=== PATIENT | female | born 2000 | race American Indian/Alaskan Native ===

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

== ENCOUNTER 2021-02-05 10:30 | Outpatient (REF) | payer MEDICAID, SELFPAY ==
[2021-02-06 03:00] LABS: CT PCR NOT DETECTED (Not Detect.); NG PCR NOT DETECTED (Not Detect.)
[2021-02-06 09:47] LABS: BV Int Neg Control Negative (Negative); BV Int Pos Control Positive (Positive)
== END 2021-02-05 10:31 | disposition home or self-care (01) ==
LOC: HO.LAB 10:30
PROVIDERS: Visit Provider Advanced Practice Midwife
DX: O26.892 Other specified pregnancy related conditions, second trimester (principal); R10.9 Unspecified abdominal pain; Z3A.24 24 weeks gestation of pregnancy
CPT/HCPCS: 87480; 87491; 87510; 87591; 87660; 99212

== ENCOUNTER 2021-03-16 14:36 | Emergency (ER) | payer MEDICAID, SELFPAY ==
[2021-03-16 15:13] VITALS: BP 117/75; PULSE 106; RESP 16; TEMP 37.2; O2SAT 95; BMI 39.1
[2021-03-16 15:40] LABS: COVID-19 Test Negative (Negative); IDNOW Serial# 08D9AD1C
[2021-03-16 16:10] VITALS: BP 118/62; PULSE 89; RESP 16; TEMP 36.7; O2SAT 100
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
== END 2021-03-16 17:13 | disposition home or self-care (01) ==
PROVIDERS: Emergency Provider Emergency Medicine
DX: O99.511 Diseases of the respiratory system complicating pregnancy, first trimester (principal); J06.9 Acute upper respiratory infection, unspecified; Z3A.01 Less than 8 weeks gestation of pregnancy; Z20.822 Contact with and (suspected) exposure to COVID-19
CPT/HCPCS: 36415; 87635; 99283; 99284

== ENCOUNTER 2021-04-02 08:58 | Outpatient (REF) | payer MEDICAID, SELFPAY ==
[2021-04-02 13:02] LABS: Hematocrit 35.3 % (37-47); Hemoglobin 11.6 g/dl (12.0-16.0); Mean Corpuscular HGB Conc 32.9 g/dl (31.0-35.0); Mean Corpuscular Hemoglobin 30.7 pg (27.0-33.0); Mean Corpuscular Volume 93.4 fL (80-98); Mean Platelet Volume 11.1 fL (9.4-12.3); Platelet Count 181 X10*3/uL (160-400); Red Blood Count 3.78 X10*6/uL (4.20-5.50); Red Cell Distribution Width 12.6 % (11.0-16.0); White Blood Count 6.2 X10*3/uL (4.8-10.8)
[2021-04-02 13:10] LABS: Amphetamine Screen Urine Not Detected (Not Detect); Barbiturates, Urine Not Detected (Not Detect); Benzodiazepines Screen Urine Not Detected (Not Detect); Cannabinoid Screen Urine POSITIVE (Not Detect); Cocaine Screen Urine Not Detected (Not Detect); Fentanyl, urine Not Detected (Not Detect); Opiate Screen Urine Not Detected (Not Detect); Phencyclidine Screen Urine Not Detected (Not Detect)
[2021-04-02 13:24] LABS: Glucose 1 Hour PP 50gm Dose 75 mg/dL (60-140)
[2021-04-02 15:16] LABS: CT PCR NOT DETECTED (Not Detect.); NG PCR NOT DETECTED (Not Detect.)
[2021-04-03 04:30] LABS: HBsAGNum1 0.19 S/CO (0.00-0.99); HIV AB/AG Nonreactive (Nonreactive); HIV Num 1 0.06 S/CO (0.00-0.99); Hepatitis B Surface Antigen Negative (Negative); ~HepC Num1 0.12 S/CO (0.00-0.79); ~Hepatitis C Antibody Nonreactive (Nonreactive)
[2021-04-03 04:31] LABS: Syphilis Screen Nonreactive (Nonreactive)
[2021-04-03 08:42] LABS: BV Int Neg Control Negative (Negative); BV Int Pos Control Positive (Positive)
[2021-04-04 05:21] LABS: Rubella IgG Antibody 1.21 Index
[2021-04-13 17:30] LABS: CF Ethnicity NG; Cystic Fibrosis NEGATIVE (NEGATIVE)
== END 2021-04-02 08:59 | disposition home or self-care (01) ==
LOC: HO.LAB 08:58
PROVIDERS: Visit Provider Obstetrics & Gynecology
DX: Z34.93 Encounter for supervision of normal pregnancy, unspecified, third trimester (principal); Z3A.32 32 weeks gestation of pregnancy
CPT/HCPCS: 59025; 80307; 81220; 85027; 86762; 86780; 86787; 86803; 86850; 86900; 86901; 87086; 87340; 87389; 87480; 87491; 87510; 87591; 87660; 99212

== ENCOUNTER 2021-04-03 13:22 | Outpatient (REF) | payer MEDICAID, SELFPAY ==
--- NOTE | ~2021-04-03 | US_ITS ---
EXAMINATION: US OBSTETRICAL CLINICAL INFORMATION: A 21-year-old at 32.3 weeks of gestation Insufficient care Alcohol and marijuana use during Insufficient weight gain COMPARISON: 11/07/2020 TECHNIQUE: Real-time transabdominal ultrasound was performed using C1-5 megahertz transducer. FINDINGS: A single, active, fetus is seen in vertex presentation. The placenta is posterior without previa, and the amniotic fluid volume is wnl. MEASUREMENTS: 1. Biparietal Diameter: 8.1 cm; 32.4 wks 2. Occipital Frontal Diameter: 10.4 cm 3. Head Circumference: 29.5 cm; 32.5 wks 4. Abdominal Circumference: 25.8 cm; 30.0 wks 5. Femur Length: 6.2 cm; 32.0 wks 6. Humerus Length: 5.4 cm; 31.2 wks 7. Tibia Length: 5.3 cm; 31.3 wks 8. Ulna Length: 5.1 cm; 32.1 wks 9. Lateral ventricle: 0.3 cm 10. Cerebellum: 4.1 cm; N/A 11. Cisterna Magna: 0.62 cm 12. Nuchal Fold N/A 13. Heart Rate: 133 beats per minute Rt ovary: normal Lt ovary: Unable to visualize Cervical length not visualized GESTATIONAL AGE: 1. Established GA: 32.3 wks 2. GA from [facility]: 31.6 wks ESTIMATED DATE OF DELIVERY: 1. Established MIRANDA: 05/26/2021 2. MIRANDA from [facility]: 05/30/2021 EFW 16 91 g, 3 lbs. 12 oz.: 9% BPP score 02/15 UA Doppler: SD 3.3 ANATOMY: The visualized anatomy includes but not limited to: 1. Cranium: Normal 2. Intracranial anatomy: cavum septum pellucidi, lateral ventricles, choroid plexus, cerebellum, posterior fossa, third and fourth ventricles. 3. face: orbits, lip/palate, profile, nasal bone 4. Heart: four-chamber view of the heart, ventricular septum, foramen ovale, pulmonary vein, left and right outflow tracts, three-vessel view, 3 vessel trachea view, aortic and ductal arches, situs.. 5. Diaphragm: Normal 6. Abdominal wall: Normal 7. Cord Insertion: Normal 8. Spine: Cervical, thoracic, lumbar, sacral. 9. Stomach: Normal size and shape 10. Right Kidney: Normal 11. Left Kidney: Normal 12. 3 vessel cord: Normal 13. Upper extremity: Open hands, fifth digit. 14. Lower extremity: Tibia, fibula, bilateral feet. 15. Bladder: Normal 16. Genitalia: Female patient aware US/US OB /maternal detail IMPRESSION: 1. A single active fetus is in vertex presentation. 2. Size less than dates, EFW corresponds to 9th percentile 3. Normal survey 4. Reassuring biophysical profile with normal amniotic fluid volume 5. Normal SD ratio in the umbilical artery DISCUSSION: I reviewed today's ultrasound findings. We discussed the limitations of ultrasound in diagnosing aneuploidy and other congenital abnormalities. I reviewed the differences between screening test and diagnostic test. She had the low risk N IPT. She is aware of the the risk of the alcohol syndrome. Often there may not be any sonographic findings suggestive of alcohol syndrome. She has discontinued the both the alcohol and marijuana use. She is complaining of poor weight gain and decreased appetite. Recommended the calorie supplements. I also reviewed the limitations of ultrasound and estimating weights. The EFW corresponds to 9th percentile for this age. However the testing is reassuring. She was informed that the baseline incidence of congenital abnormalities is approximately 3-5%. Not all these conditions are diagnosable in utero. RECOMMENDATIONS: 1. A follow-up in 2 weeks is been scheduled. Thank you for allowing me to participate in her care. Total time 30 minutes. The time spent was devoted to counseling the patient about the disease and diagnosis, coordinating care including reviewing her records, pertinent lab data and studies, as well as discussing diagnostic evaluation and workup, plan therapeutic interventions and future disposition of care. This includes any additional research needed to obtain further information in formulating the plan of care of this patient. This note was generated with a voice recognition program. Please excuse any errors which may have been overlooked during my review of this note. Sometimes these errors may affect the content or meaning of a given sentence.
== END 2021-04-03 13:23 | disposition home or self-care (01) ==
LOC: HO.US 13:22
PROVIDERS: Visit Provider Advanced Practice Midwife
DX: Z36.3 Encounter for antenatal screening for malformations (principal); Z32.01 Encounter for pregnancy test, result positive
CPT/HCPCS: 76811

== ENCOUNTER 2021-04-07 15:33 | Outpatient (REF) | payer MEDICAID, SELFPAY ==
[2021-04-08 17:31] LABS: Herpes Simplex Type 2 IgG <0.90 index; Toxoplasma IgG Antibody <7.20 IU/mL; Toxoplasma IgM Antibody <8.00 AU/mL
[2021-04-10 16:37] LABS: CMV DNA PCR Qn Source Whole Blood; CMV DNA Qn PCR Not Detected log IU/mL; CMV DNA Qn Real Time PCR Not Detected
[2021-04-11 11:06] LABS: HSV 1 IgM IFA Negative (Negative); HSV 2 IgM IFA Negative (Negative)
== END 2021-04-07 15:34 | disposition home or self-care (01) ==
LOC: HO.LAB 15:33
PROVIDERS: Visit Provider Obstetrics & Gynecology
DX: O26.843 Uterine size-date discrepancy, third trimester (principal); O36.5930 Maternal care for other known or suspected poor fetal growth, third trimester, not applicable or unspecified; Z3A.33 33 weeks gestation of pregnancy
CPT/HCPCS: 36415; 59025; 86695; 86696; 86777; 86778; 87497; 99212

== ENCOUNTER 2021-04-10 10:42 | Outpatient (REF) | payer MEDICAID, SELFPAY ==
--- NOTE | ~2021-04-10 | US_ITS ---
EXAMINATION: US OBSTETRICAL (BIOPHYSICAL PROFILE) CLINICAL INFORMATION: A 21-year-old at 33.3 weeks of gestation IUGR COMPARISON: 04/03/2021 TECHNIQUE: Biophysical profile is performed over 30 minutes with assessment of breathing, gross body movement, tone, and qualitative amniotic fluid volume. FINDINGS: POSITION: Cephalic PLACENTA: Posterior without previa AMNIOTIC FLUID INDEX: 14.6 cm CARDIAC ACTIVITY: 149 beats per minute BIOPHYSICAL PROFILE: Motion: 2 Tone: 2 Breathin Amniotic Fluid: 2 The total biophysical score is 8/8 UA Doppler showed SD ratio of 2.9 which is within normal limits. US/US OB velocimetry umbilical ar IMPRESSION: 1. Single intrauterine gestation in vertex position. 2. Reassuring BPP and NEHEMIAS 3. Normal SD ratio in the umbilical artery She is scheduled to follow-up in one week for a repeat the interval growth evaluation and surveillance. Thank you for allowing me to participate in her care. This note was generated with a voice recognition program. Please excuse any errors which may have been overlooked during my review of this note. Sometimes these errors may affect the content or meaning of a given sentence.
--- NOTE | ~2021-04-10 | US_ITS ---
EXAMINATION: US OBSTETRICAL (BIOPHYSICAL PROFILE) CLINICAL INFORMATION: A 21-year-old at 33.3 weeks of gestation IUGR COMPARISON: 04/03/2021 TECHNIQUE: Biophysical profile is performed over 30 minutes with assessment of breathing, gross body movement, tone, and qualitative amniotic fluid volume. FINDINGS: POSITION: Cephalic PLACENTA: Posterior without previa AMNIOTIC FLUID INDEX: 14.6 cm CARDIAC ACTIVITY: 149 beats per minute BIOPHYSICAL PROFILE: Motion: 2 Tone: 2 Breathin Amniotic Fluid: 2 The total biophysical score is 8/8 UA Doppler showed SD ratio of 2.9 which is within normal limits. US/US OB biophysical profile IMPRESSION: 1. Single intrauterine gestation in vertex position. 2. Reassuring BPP and NEHEMIAS 3. Normal SD ratio in the umbilical artery She is scheduled to follow-up in one week for a repeat the interval growth evaluation and surveillance. Thank you for allowing me to participate in her care. This note was generated with a voice recognition program. Please excuse any errors which may have been overlooked during my review of this note. Sometimes these errors may affect the content or meaning of a given sentence.
== END 2021-04-10 10:43 | disposition home or self-care (01) ==
LOC: HO.US 10:42
PROVIDERS: PCP Internal Medicine; Visit Provider Obstetrics & Gynecology
DX: O36.5930 Maternal care for other known or suspected poor fetal growth, third trimester, not applicable or unspecified (principal); Z3A.33 33 weeks gestation of pregnancy
CPT/HCPCS: 76819; 76820

== ENCOUNTER → 2021-04-14 11:18 | Outpatient (BNVA) | payer MEDICAID, SELFPAY | PROVIDERS: Visit Provider Obstetrics & Gynecology | DX: O36.8330 Maternal care for abnormalities of the fetal heart rate or rhythm, third trimester, not applicable or unspecified (principal); O98.513 Other viral diseases complicating pregnancy, third trimester; B00.9 Herpesviral infection, unspecified; O26.893 Other specified pregnancy related conditions, third trimester; F12.20 Cannabis dependence, uncomplicated; F10.20 Alcohol dependence, uncomplicated; Z3A.34 34 weeks gestation of pregnancy; Z88.1 Allergy status to other antibiotic agents; Z88.0 Allergy status to penicillin | CPT/HCPCS: 59025; 99212 ==

== ENCOUNTER → 2021-04-21 10:13 | Outpatient (BNVA) | payer MEDICAID, SELFPAY | PROVIDERS: Visit Provider Obstetrics & Gynecology | DX: O36.5930 Maternal care for other known or suspected poor fetal growth, third trimester, not applicable or unspecified (principal); Z3A.35 35 weeks gestation of pregnancy | CPT/HCPCS: 59025; 76819; 76820; 80307; 99212 ==

== ENCOUNTER 2021-04-21 11:33 | Outpatient (REF) | payer MEDICAID, SELFPAY ==
--- NOTE | ~2021-04-21 | US_ITS ---
EXAMINATION: US OBSTETRICAL (BIOPHYSICAL PROFILE) CLINICAL INFORMATION: IUGR COMPARISON: Previous OB ultrasounds most recent 04/10/2021 TECHNIQUE: Ultrasound of the pelvis is performed. Biophysical profile is performed over 30 minutes with assessment of breathing, gross body movement, tone, and qualitative amniotic fluid volume. Each matrix is scored 0 or 2, depending if the metric is present. Maximum total score possible is 8. Examination is not intended to assess for anomalies. FINDINGS: POSITION: Cephalic PLACENTA: Posterior fundal. Grade 2 AMNIOTIC FLUID INDEX: Not performed. A greater than 2 x 2 cm fluid pocket is seen. CARDIAC ACTIVITY: 133 beats per minute BIOPHYSICAL PROFILE: Motion: 2 Tone: 2 Breathin Amniotic Fluid: 2 Total score: 8 Umbilical artery systolic to diastolic ratio 2.6. At 30 weeks, 50th percentile is 2.83 and 40 weeks 50th percentile is 2.18. This is decreased from 2.9 cm on previous exam 04/10/2021. US/US OB velocimetry umbilical ar IMPRESSION: 1. Single intrauterine gestation in cephalic position with posterior fundal placenta. 2. Total biophysical score is 8 (scale 0-8). 3. Amniotic fluid: Not performed. A greater than 2 x 2 cm fluid pocket is seen 4. cardiac activity 133 beats per minute. 5. Umbilical artery systolic to diastolic ratio is 2.6 decreased from 2.9 on 04/10/2021 exam.
--- NOTE | ~2021-04-21 | US_ITS ---
EXAMINATION: US OBSTETRICAL (BIOPHYSICAL PROFILE) CLINICAL INFORMATION: IUGR COMPARISON: Previous OB ultrasounds most recent 04/10/2021 TECHNIQUE: Ultrasound of the pelvis is performed. Biophysical profile is performed over 30 minutes with assessment of breathing, gross body movement, tone, and qualitative amniotic fluid volume. Each matrix is scored 0 or 2, depending if the metric is present. Maximum total score possible is 8. Examination is not intended to assess for anomalies. FINDINGS: POSITION: Cephalic PLACENTA: Posterior fundal. Grade 2 AMNIOTIC FLUID INDEX: Not performed. A greater than 2 x 2 cm fluid pocket is seen. CARDIAC ACTIVITY: 133 beats per minute BIOPHYSICAL PROFILE: Motion: 2 Tone: 2 Breathin Amniotic Fluid: 2 Total score: 8 Umbilical artery systolic to diastolic ratio 2.6. At 30 weeks, 50th percentile is 2.83 and 40 weeks 50th percentile is 2.18. This is decreased from 2.9 cm on previous exam 04/10/2021. US/US OB biophysical profile IMPRESSION: 1. Single intrauterine gestation in cephalic position with posterior fundal placenta. 2. Total biophysical score is 8 (scale 0-8). 3. Amniotic fluid: Not performed. A greater than 2 x 2 cm fluid pocket is seen 4. cardiac activity 133 beats per minute. 5. Umbilical artery systolic to diastolic ratio is 2.6 decreased from 2.9 on 04/10/2021 exam.
[2021-04-21 14:37] LABS: Amphetamine Screen Urine Not Detected (Not Detect); Barbiturates, Urine Not Detected (Not Detect); Benzodiazepines Screen Urine Not Detected (Not Detect); Cannabinoid Screen Urine POSITIVE (Not Detect); Cocaine Screen Urine Not Detected (Not Detect); Fentanyl, urine Not Detected (Not Detect); Opiate Screen Urine Not Detected (Not Detect); Phencyclidine Screen Urine Not Detected (Not Detect)
== END 2021-04-21 11:34 | disposition home or self-care (01) ==
LOC: HO.US 11:33
PROVIDERS: Visit Provider Obstetrics & Gynecology
DX: O36.5990 Maternal care for other known or suspected poor fetal growth, unspecified trimester, not applicable or unspecified (principal)
CPT/HCPCS: 76819; 76820; 80307

== ENCOUNTER 2021-04-24 11:49 | Outpatient (REF) | payer MEDICAID, SELFPAY ==
--- NOTE | ~2021-04-24 | US_ITS ---
EXAMINATION: OBSTETRICAL ULTRASOUND, Follow up HISTORY: A 21-year-old at the 35.3 weeks of gestation Insufficient care Small for gestational age COMPARISON: 04/21/2021 TECHNIQUE: Real time transabdominal imaging with color and M-mode Doppler. PRESENTATION: Vertex PLACENTA LOCATION: Posterior fundal without previa AMNIOTIC FLUID: NEHEMIAS 13.3 MEASUREMENTS: 1. Biparietal Diameter: 8.5 cm; 34.3 wks 2. Head Circumference: 31.3 cm; 35.1 wks 3. Abdominal Circumference: 30.4 cm; 34.3 wks 4. Femur Length: 6.5 cm; 33.5 wks 5. Heart Rate: 147 beats per minute WEIGHT: EFW: 2383 grams (5 lbs 4 oz) -- 18 %. BIOPHYSICAL PROFILE: Motion: 2 Tone: 2 Breathin Amniotic Fluid: 2 Total score: 8/8 UA Doppler: SD 2.8 GESTATIONAL AGE: 1. Established GA: 35.3 wks 2. GA from A: 34.3 wks ESTIMATED DATE OF DELIVERY: 1. Established MIRANDA: 05/26/2021 2. MIRANDA from AUA: 06/02/2021 US/US OB velocimetry umbilical ar IMPRESSION: 1. A single active fetus is in vertex presentation 2. Size equals dates. Compared to prior exam, there has been an appropriate interval growth. EFW corresponds to 18th percentile. 3. Reassuring testing and normal UA Doppler I reassured the patient that the interval growth is appropriate and testing is reassuring. She delivered a child was weight was approximately 5 1/2 pounds post dates. No further ultrasound exam has been scheduled. Thank you very much for this referral. Total time 20 minutes. The time spent was devoted to counseling the patient about the disease and diagnosis, coordinating care including reviewing her records, pertinent lab data and studies, as well as discussing diagnostic evaluation and workup, plan therapeutic interventions and future disposition of care. This includes any additional research needed to obtain further information in formulating the plan of care of this patient. This note was generated with a voice recognition program. Please excuse any errors which may have been overlooked during my review of this note. Sometimes these errors may affect the content or meaning of a given sentence.
--- NOTE | ~2021-04-24 | US_ITS ---
EXAMINATION: OBSTETRICAL ULTRASOUND, Follow up HISTORY: A 21-year-old at the 35.3 weeks of gestation Insufficient care Small for gestational age COMPARISON: 04/21/2021 TECHNIQUE: Real time transabdominal imaging with color and M-mode Doppler. PRESENTATION: Vertex PLACENTA LOCATION: Posterior fundal without previa AMNIOTIC FLUID: NEHEMIAS 13.3 MEASUREMENTS: 1. Biparietal Diameter: 8.5 cm; 34.3 wks 2. Head Circumference: 31.3 cm; 35.1 wks 3. Abdominal Circumference: 30.4 cm; 34.3 wks 4. Femur Length: 6.5 cm; 33.5 wks 5. Heart Rate: 147 beats per minute WEIGHT: EFW: 2383 grams (5 lbs 4 oz) -- 18 %. BIOPHYSICAL PROFILE: Motion: 2 Tone: 2 Breathin Amniotic Fluid: 2 Total score: 8/8 UA Doppler: SD 2.8 GESTATIONAL AGE: 1. Established GA: 35.3 wks 2. GA from AUA: 34.3 wks ESTIMATED DATE OF DELIVERY: 1. Established MIRANDA: 05/26/2021 2. MIRANDA from AUA: 06/02/2021 US/US OB follow up IMPRESSION: 1. A single active fetus is in vertex presentation 2. Size equals dates. Compared to prior exam, there has been an appropriate interval growth. EFW corresponds to 18th percentile. 3. Reassuring testing and normal UA Doppler I reassured the patient that the interval growth is appropriate and testing is reassuring. She delivered a child was weight was approximately 5 1/2 pounds post dates. No further ultrasound exam has been scheduled. Thank you very much for this referral. Total time 20 minutes. The time spent was devoted to counseling the patient about the disease and diagnosis, coordinating care including reviewing her records, pertinent lab data and studies, as well as discussing diagnostic evaluation and workup, plan therapeutic interventions and future disposition of care. This includes any additional research needed to obtain further information in formulating the plan of care of this patient. This note was generated with a voice recognition program. Please excuse any errors which may have been overlooked during my review of this note. Sometimes these errors may affect the content or meaning of a given sentence.
== END 2021-04-24 11:50 | disposition home or self-care (01) ==
LOC: HO.US 11:49
PROVIDERS: Visit Provider Obstetrics & Gynecology
DX: O36.5990 Maternal care for other known or suspected poor fetal growth, unspecified trimester, not applicable or unspecified (principal)
CPT/HCPCS: 76816; 76820

== ENCOUNTER 2021-04-28 10:34 | Outpatient (REF) | payer MEDICAID, SELFPAY ==
[2021-04-29 09:05] LABS: BV Int Neg Control Negative (Negative); BV Int Pos Control Positive (Positive)
[2021-04-29 11:14] LABS: CT PCR NOT DETECTED (Not Detect.); NG PCR NOT DETECTED (Not Detect.)
== END 2021-04-28 10:35 | disposition home or self-care (01) ==
LOC: HO.LAB 10:34
PROVIDERS: Visit Provider Obstetrics & Gynecology
DX: Z34.93 Encounter for supervision of normal pregnancy, unspecified, third trimester (principal); Z3A.36 36 weeks gestation of pregnancy
CPT/HCPCS: 59025; 87081; 87147; 87186; 87480; 87491; 87510; 87591; 87660; 99212

== ENCOUNTER 2021-05-01 14:36 | Outpatient (REF) | payer MEDICAID, SELFPAY ==
--- NOTE | ~2021-05-01 | US_ITS ---
EXAMINATION: US OBSTETRICAL (BIOPHYSICAL PROFILE) CLINICAL INFORMATION: A 21-year-old at 36.3 weeks of gestation growth restriction COMPARISON: 04/10/2021 TECHNIQUE: Biophysical profile is performed over 30 minutes with assessment of breathing, gross body movement, tone, and qualitative amniotic fluid volume. FINDINGS: POSITION: Cephalic PLACENTA: Posterior, fundal AMNIOTIC FLUID INDEX: 14.7 cm CARDIAC ACTIVITY: 153 beats per minute BIOPHYSICAL PROFILE: Motion: 2 Tone: 2 Breathin Amniotic Fluid: 2 The total biophysical score is 8/8 UA Doppler: SD 3.2 US/US OB velocimetry umbilical ar IMPRESSION: 1. Single intrauterine gestation in vertex position. 2. Reassuring BPP and NEHEMIAS The patient is being monitored for FGR based on the AC less than 10th percentile on 04/24/2021. The testing is reassuring. A repeat biometry will be done next week. Thank you for allowing me to participate in her care. This note was generated with a voice recognition program. Please excuse any errors which may have been overlooked during my review of this note. Sometimes these errors may affect the content or meaning of a given sentence.
--- NOTE | ~2021-05-01 | US_ITS ---
EXAMINATION: US OBSTETRICAL (BIOPHYSICAL PROFILE) CLINICAL INFORMATION: A 21-year-old at 36.3 weeks of gestation growth restriction COMPARISON: 04/10/2021 TECHNIQUE: Biophysical profile is performed over 30 minutes with assessment of breathing, gross body movement, tone, and qualitative amniotic fluid volume. FINDINGS: POSITION: Cephalic PLACENTA: Posterior, fundal AMNIOTIC FLUID INDEX: 14.7 cm CARDIAC ACTIVITY: 153 beats per minute BIOPHYSICAL PROFILE: Motion: 2 Tone: 2 Breathin Amniotic Fluid: 2 The total biophysical score is 8/8 UA Doppler: SD 3.2 US/US OB biophysical profile IMPRESSION: 1. Single intrauterine gestation in vertex position. 2. Reassuring BPP and NEHEMIAS The patient is being monitored for FGR based on the AC less than 10th percentile on 04/24/2021. The testing is reassuring. A repeat biometry will be done next week. Thank you for allowing me to participate in her care. This note was generated with a voice recognition program. Please excuse any errors which may have been overlooked during my review of this note. Sometimes these errors may affect the content or meaning of a given sentence.
== END 2021-05-01 14:37 | disposition home or self-care (01) ==
LOC: HO.US 14:36
PROVIDERS: Visit Provider Obstetrics & Gynecology
DX: O36.5930 Maternal care for other known or suspected poor fetal growth, third trimester, not applicable or unspecified (principal); Z3A.36 36 weeks gestation of pregnancy
CPT/HCPCS: 76819; 76820

== ENCOUNTER → 2021-05-05 14:32 | Outpatient (BNVA) | payer MEDICAID, SELFPAY | PROVIDERS: Visit Provider Obstetrics & Gynecology | DX: O26.893 Other specified pregnancy related conditions, third trimester (principal); F12.90 Cannabis use, unspecified, uncomplicated; F10.10 Alcohol abuse, uncomplicated; O99.820 Streptococcus B carrier state complicating pregnancy; O09.33 Supervision of pregnancy with insufficient antenatal care, third trimester; O36.5930 Maternal care for other known or suspected poor fetal growth, third trimester, not applicable or unspecified; Z3A.37 37 weeks gestation of pregnancy; Z72.89 Other problems related to lifestyle; Z71.51 Drug abuse counseling and surveillance of drug abuser; Z79.899 Other long term (current) drug therapy | CPT/HCPCS: 59025; 99212 ==

== ENCOUNTER 2021-05-08 11:16 | Outpatient (REF) | payer MEDICAID, SELFPAY ==
--- NOTE | ~2021-05-08 | US_ITS ---
EXAMINATION: US OBSTETRICAL (BIOPHYSICAL PROFILE) CLINICAL INFORMATION: A 21-year-old at 37.3 weeks of gestation Size less than dates COMPARISON: 05/01/2021 TECHNIQUE: Biophysical profile is performed over 30 minutes with assessment of breathing, gross body movement, tone, and qualitative amniotic fluid volume. FINDINGS: POSITION: Cephalic PLACENTA: Fundal AMNIOTIC FLUID INDEX: 11.1 cm CARDIAC ACTIVITY: 143 beats per minute BIOPHYSICAL PROFILE: Motion: 2 Tone: 2 Breathin Amniotic Fluid: 2 The total biophysical score is 8/8 UA Doppler: SD 2.9 US/US OB biophysical profile IMPRESSION: 1. Single intrauterine gestation in vertex position. 2. Reassuring BPP and NEHEMIAS 3. Normal SD ratio in the umbilical artery. I gave her reassurance based on today's findings. The BPP score and amniotic fluid volume are within normal limits. The SD ratio and umbilical artery was stable and within normal limits. Agree with plan for expectant management until at approximately 39 weeks of gestation. She is scheduled for repeat biometry next week. Thank you for allowing me to participate in her care. Total time 30 minutes. The time spent was devoted to counseling the patient about the disease and diagnosis, coordinating care including reviewing her records, pertinent lab data and studies, as well as discussing diagnostic evaluation and workup, plan therapeutic interventions and future disposition of care. This includes any additional research needed to obtain further information in formulating the plan of care of this patient. This note was generated with a voice recognition program. Please excuse any errors which may have been overlooked during my review of this note. Sometimes these errors may affect the content or meaning of a given sentence.
--- NOTE | ~2021-05-08 | US_ITS ---
EXAMINATION: US OBSTETRICAL (BIOPHYSICAL PROFILE) CLINICAL INFORMATION: A 21-year-old at 37.3 weeks of gestation Size less than dates COMPARISON: 05/01/2021 TECHNIQUE: Biophysical profile is performed over 30 minutes with assessment of breathing, gross body movement, tone, and qualitative amniotic fluid volume. FINDINGS: POSITION: Cephalic PLACENTA: Fundal AMNIOTIC FLUID INDEX: 11.1 cm CARDIAC ACTIVITY: 143 beats per minute BIOPHYSICAL PROFILE: Motion: 2 Tone: 2 Breathin Amniotic Fluid: 2 The total biophysical score is 8/8 UA Doppler: SD 2.9 US/US OB velocimetry umbilical ar IMPRESSION: 1. Single intrauterine gestation in vertex position. 2. Reassuring BPP and NEHEMIAS 3. Normal SD ratio in the umbilical artery. I gave her reassurance based on today's findings. The BPP score and amniotic fluid volume are within normal limits. The SD ratio and umbilical artery was stable and within normal limits. Agree with plan for expectant management until at approximately 39 weeks of gestation. She is scheduled for repeat biometry next week. Thank you for allowing me to participate in her care. Total time 30 minutes. The time spent was devoted to counseling the patient about the disease and diagnosis, coordinating care including reviewing her records, pertinent lab data and studies, as well as discussing diagnostic evaluation and workup, plan therapeutic interventions and future disposition of care. This includes any additional research needed to obtain further information in formulating the plan of care of this patient. This note was generated with a voice recognition program. Please excuse any errors which may have been overlooked during my review of this note. Sometimes these errors may affect the content or meaning of a given sentence.
== END 2021-05-08 11:17 | disposition home or self-care (01) ==
LOC: HO.US 11:16
PROVIDERS: Visit Provider Obstetrics & Gynecology
DX: O36.5990 Maternal care for other known or suspected poor fetal growth, unspecified trimester, not applicable or unspecified (principal)
CPT/HCPCS: 76819; 76820

== ENCOUNTER → 2021-05-26 09:15 | Outpatient (BNVA) | payer MEDICAID, SELFPAY | PROVIDERS: Visit Provider Obstetrics & Gynecology | DX: O36.5930 Maternal care for other known or suspected poor fetal growth, third trimester, not applicable or unspecified (principal); Z3A.40 40 weeks gestation of pregnancy | CPT/HCPCS: 99212 ==

== ENCOUNTER 2021-07-03 22:18 | Emergency (ER) | payer MEDICAID, SELFPAY ==
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
[2021-07-04 01:11] VITALS: BP 148/57; PULSE 64; RESP 16; TEMP 36.8; O2SAT 98; BMI 36.3
[2021-07-04 01:33] LABS: COVID-19 Test Negative (Negative); IDNOW Serial# 9DD0AD1C
== END 2021-07-04 02:23 | disposition home or self-care (01) ==
PROVIDERS: Emergency Provider Internal Medicine
DX: U07.1 COVID-19 (principal)
CPT/HCPCS: 36415; 87635; 99283

== ENCOUNTER 2021-11-24 07:10 | Emergency (ER) | payer MEDICAID, SELFPAY ==
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
[2021-11-24 08:33] VITALS: BP 122/60; PULSE 98; RESP 16; TEMP 37.2; O2SAT 98; BMI 45.5
[2021-11-24] MEDS: Acetaminophen 325 MG TABLET 650 MG PO (08:51)
[2021-11-24 08:55] LABS: COVID-19 Test Positive (Negative); IDNOW Serial# 16C4AD1C
== END 2021-11-24 09:10 | disposition home or self-care (01) ==
PROVIDERS: Physician Assistant; Emergency Provider Emergency Medicine
DX: U07.1 COVID-19 (principal); Z79.899 Other long term (current) drug therapy
CPT/HCPCS: 87635; 99283

== ENCOUNTER 2021-11-27 06:23 | Emergency (ER) | payer MEDICAID, SELFPAY ==
[2021-11-27 06:31] VITALS: BP 119/65; PULSE 81; RESP 15; TEMP 36.9; O2SAT 100; BMI 39.6
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
[2021-11-27] MEDS: diphenhydrAMINE HCL 50 MG/ML VIAL IM (08:36)
[2021-11-27] MEDS: methylPREDNISolone Sod Succ 125 MG/2 ML VIAL 120 MG IM (08:36)
== END 2021-11-27 09:36 | disposition home or self-care (01) ==
PROVIDERS: Emergency Provider Emergency Medicine Emergency Medical Services
DX: T78.40XA Allergy, unspecified, initial encounter (principal); X58.XXXA Exposure to other specified factors, initial encounter
CPT/HCPCS: 96372; 99284; J1200; J2930

== ENCOUNTER 2022-07-30 11:06 | Outpatient (REF) | payer MEDICAID, SELFPAY ==
[2022-07-30 17:09] LABS: CT PCR NOT DETECTED (Not Detect.); NG PCR NOT DETECTED (Not Detect.)
[2022-07-31 13:29] LABS: BV Int Neg Control Negative (Negative); BV Int Pos Control Positive (Positive)
== END 2022-07-30 11:07 | disposition home or self-care (01) ==
LOC: HO.LNP 11:06
PROVIDERS: Visit Provider Advanced Practice Midwife
DX: Z01.419 Encounter for gynecological examination (general) (routine) without abnormal findings (principal); N89.8 Other specified noninflammatory disorders of vagina; Z11.3 Encounter for screening for infections with a predominantly sexual mode of transmission; Z80.3 Family history of malignant neoplasm of breast
CPT/HCPCS: 0353U; 87480; 87510; 87660; 88142

== ENCOUNTER 2022-10-31 19:00 | Emergency (ER) | payer MEDICAID, SELFPAY ==
[2022-10-31 19:24] VITALS: BP 106/61; PULSE 84; RESP 18; TEMP 36.6; O2SAT 97; BMI 41.5
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
== END 2022-10-31 20:00 | disposition home or self-care (01) ==
PROVIDERS: Emergency Provider Internal Medicine
DX: H11.32 Conjunctival hemorrhage, left eye (principal); H10.9 Unspecified conjunctivitis; Z79.899 Other long term (current) drug therapy
CPT/HCPCS: 99282

== ENCOUNTER 2022-11-02 12:33 | Emergency (ER) | payer MEDICAID, SELFPAY ==
[2022-11-02 12:53] VITALS: BP 109/74; PULSE 83; RESP 16; TEMP 36.3; O2SAT 97; BMI 19.7
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
== END 2022-11-02 13:24 | disposition home or self-care (01) ==
LOC: HO.ED 13:18
PROVIDERS: Emergency Provider Student in an Organized Health Care Education/Training Program
DX: T60.4X1A Toxic effect of rodenticides, accidental (unintentional), initial encounter (principal); Y92.9 Unspecified place or not applicable
CPT/HCPCS: 99282

== ENCOUNTER → 2023-05-10 14:04 | Outpatient (BNVA) | payer MEDICAID, SELFPAY | PROVIDERS: Visit Provider Physician Assistant ==

== ENCOUNTER 2023-05-12 08:31 | Outpatient (AMB) | payer MEDICAID, SELFPAY ==
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
[2023-05-12 11:59] VITALS: BMI 44.7
== END 2023-05-12 12:24 | disposition home or self-care (01) ==
LOC: HO.HBS 08:31
PROVIDERS: Visit Provider Surgery
DX: E66.01 Morbid (severe) obesity due to excess calories (principal); Z68.41 Body mass index [BMI] 40.0-44.9, adult
CPT/HCPCS: 99204

== ENCOUNTER → 2023-05-12 08:31 | Outpatient (BNVA) | payer MEDICAID, SELFPAY | PROVIDERS: Visit Provider Surgery ==

== ENCOUNTER 2023-06-02 10:36 | Emergency (ER) | payer MEDICAID, SELFPAY ==
[2023-06-02 10:50] VITALS: BP 121/77; PULSE 89; RESP 19; TEMP 36.6; O2SAT 99; BMI 44.3
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
[2023-06-02 11:27] LABS: Appearance Urine Clear; Color Urine Yellow; Glucose Urine UA Negative (Negative); Leukocyte Esterase Urine Negative (Negative); Nitrite Urine Negative (Negative); PH 5.5 (5.0-9.0); Specific Gravity - Urine 1.015 (1.005-1.025); UMIC TRIGGER UACC YES; Urine Blood Large (3+) (Negative); Urine Ketones Negative (Negative); Urine Protein Negative (Neg-Trace)
[2023-06-02 11:29] LABS: UPreg QC Valid YES; Urine Pregnancy NEGATIVE (NEGATIVE)
[2023-06-02 11:31] LABS: Bacteria Urine None Seen (None Seen); Hyaline Casts Urine 0-2 /LPF (0-2); RBC Urine >20 /HPF (0-2); Squamous Epithelial Cell Urine 0-2 /HPF (0-2); WBC Urine 0-5 /HPF (0-5)
[2023-06-02 11:41] LABS: Anion Gap 16 (12-20); Blood Urea Nitrogen 6 mg/dL (9-16); Calcium 8.9 mg/dL (8.4-10.2); Carbon Dioxide 18 mmol/L (22-29); Chloride 110 mmol/L (96-108); Creatinine Clr Calc Pharmacy 148.6; Estimated Glomerular Filt Rate > 60; Glucose Random 80 mg/dL (60-115); Potassium 4.5 mmol/L (3.3-5.1); Sodium 139 mmol/L (135-145)
[2023-06-02 11:50] LABS: HCG Quantitative < 2 mIU/mL
[2023-06-02 12:08] LABS: MANUAL DIFF FLAG NO
[2023-06-02 12:10] LABS: Basophils Absolute Auto 0.1 X10*3/uL (0.0-0.2); Basophils Percent Auto 0.9 % (0-2); Eosinophils Absolute Auto 0.1 X10*3/uL (0.0-0.4); Hematocrit 39.7 % (37.0-47.0); Hemoglobin 13.3 g/dl (12.0-16.0); Imm Gran Abs Auto 0.03 X10*3/uL (0.00-0.03); Imm Gran Pct Auto 0.3 % (0.0-0.4); Lymphocytes Absolute Auto 1.9 X10*3/uL (1.2-4.9); Lymphocytes Percent Auto 18.4 % (20-40); Mean Corpuscular HGB Conc 33.5 g/dl (31.0-35.0); Mean Corpuscular Hemoglobin 30.2 pg (27.0-33.0); Mean Corpuscular Volume 90.2 fL (80.0-98.0); Monocytes Absolute Auto 0.6 X10*3/uL (0.1-1.2); Monocytes Percent Auto 6.3 % (2-11); Neutrophils Absolute Auto 7.4 x10*3/uL (2.0-8.3); Neutrophils Percent Auto 73.1 % (45-73); Platelet Count 248 X10*3/uL (160-400); Red Cell Distribution Width 13.2 % (11.0-16.0); White Blood Count 10.2 X10*3/uL (4.8-10.8)
== END 2023-06-02 12:50 | disposition home or self-care (01) ==
PROVIDERS: Emergency Provider Emergency Medicine
DX: N92.0 Excessive and frequent menstruation with regular cycle (principal); F12.90 Cannabis use, unspecified, uncomplicated; E66.9 Obesity, unspecified; Z68.41 Body mass index [BMI] 40.0-44.9, adult
CPT/HCPCS: 36415; 80048; 81001; 81025; 84702; 85025; 99283

== ENCOUNTER 2023-06-06 08:08 | Outpatient (AMB) | payer MEDICAID, SELFPAY ==
[2023-06-06 08:47] VITALS: BMI 44.1
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
== END 2023-06-06 08:56 | disposition home or self-care (01) ==
LOC: HO.HBS 08:08
PROVIDERS: Visit Provider Surgery
DX: E66.01 Morbid (severe) obesity due to excess calories (principal); Z68.41 Body mass index [BMI] 40.0-44.9, adult
CPT/HCPCS: 99214

== ENCOUNTER → 2023-06-06 08:08 | Outpatient (REF) | payer MEDICAID, SELFPAY ==
--- NOTE | ~2023-06-06 | XR_ITS ---
EXAMINATION: XR CHEST CLINICAL INFORMATION: Morbid obesity COMPARISON: Chest radiograph from 05/19/2007 TECHNIQUE: 2 views of the chest were obtained. FINDINGS: No focal consolidation. No pneumothorax. Trachea is midline. Cardiac mediastinal silhouette is not enlarged. No large pleural effusion. Osseous structures are intact. Soft tissues are unremarkable. Bilateral nipple piercings are noted. XR/XR chest 2V IMPRESSION: No acute cardiopulmonary process.
--- NOTE | 2023-06-06 09:20 | ECG_ITS ---
Test Reason : e66.01 Blood Pressure : / mmHG Vent. Rate : 081 BPM Atrial Rate : 081 BPM P-R Int : 154 ms QRS Dur : 078 ms QT Int : 356 ms P-R-T Axes : 058 065 045 degrees QTc Int : 413 ms Normal sinus rhythm Normal ECG No previous ECGs available Referred By: Moe Richardson Electronically Signed By:STEVEN DOCKERY MD
== END ==
LOC: HO.CARD 08:08
PROVIDERS: Visit Provider Surgery
DX: E66.01 Morbid (severe) obesity due to excess calories (principal)
CPT/HCPCS: 71046; 93005

== ENCOUNTER 2023-06-23 14:28 | Outpatient (AMB) | payer MEDICAID, SELFPAY ==
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
== END 2023-06-23 14:42 | disposition home or self-care (01) ==
LOC: HO.HBS 14:28
PROVIDERS: Visit Provider Dietitian, Registered
DX: E66.01 Morbid (severe) obesity due to excess calories (principal)

== ENCOUNTER → 2023-06-23 14:28 | Outpatient (BNVA) | payer MEDICAID, SELFPAY | PROVIDERS: Visit Provider Dietitian, Registered | DX: E66.01 Morbid (severe) obesity due to excess calories (principal) | CPT/HCPCS: 97802 ==

== ENCOUNTER 2023-06-27 07:57 | Outpatient (AMB) | payer MEDICAID, SELFPAY ==
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
[2023-06-27 09:04] VITALS: BMI 39.9
== END 2023-06-27 09:12 | disposition home or self-care (01) ==
PROVIDERS: Visit Provider Surgery
DX: E66.9 Obesity, unspecified (principal); Z68.39 Body mass index [BMI] 39.0-39.9, adult
CPT/HCPCS: 99214

== ENCOUNTER → 2023-06-27 07:57 | Outpatient (BNVA) | payer MEDICAID, SELFPAY | PROVIDERS: Visit Provider Surgery ==

== ENCOUNTER 2023-10-06 14:20 | Emergency (ER) | payer SELFPAY ==
--- NOTE | ~2023-10-06 | US_ITS ---
EXAMINATION: US OBSTETRICAL ULTRASOUND CLINICAL INFORMATION: Positive test one week ago. Vaginal bleeding. COMPARISON: None available. LMP: Unknown. Gestational age by maternal dates is unknown. Estimated date of delivery by maternal dates is unknown. TECHNIQUE: Routine transabdominal and transvaginal imaging of pelvis is performed. FINDINGS: There is visualization of intrauterine gestational sac and yolk sac. The pole is not visualized. It may be too early in . No heart beat visualized MATERNAL ADNEXA: The right maternal ovary measures 3.2 x 2.1 x 2.6 cm. The left maternal ovary measures 3.0 x 1.8 x 2.2 cm. There is no significant maternal adnexal mass. No maternal pelvic ascites. US/US OB pelvic and transvaginal IMPRESSION: Single intrauterine gestational sac with yolk sac. No pole is visualized at this time. This could be too early in . Recommend follow-up ultrasound in 2-3 weeks or later.
[2023-10-06 14:29] VITALS: BP 143/62; PULSE 84; RESP 18; TEMP 36.6; O2SAT 98; BMI 48.2
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
== END 2023-10-06 17:57 | disposition left against medical advice (07) ==
PROVIDERS: Emergency Provider Emergency Medicine
DX: O26.859 Spotting complicating pregnancy, unspecified trimester (principal); O26.899 Other specified pregnancy related conditions, unspecified trimester; R10.30 Lower abdominal pain, unspecified; Z3A.00 Weeks of gestation of pregnancy not specified; Z88.0 Allergy status to penicillin
CPT/HCPCS: 76801; 76817; 99281; 99284

== ENCOUNTER 2023-10-06 19:37 | Emergency (ER) | payer SELFPAY ==
[2023-10-06 20:15] VITALS: BP 117/54; PULSE 83; RESP 18; TEMP 36.6; O2SAT 98; BMI 48.3
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
[2023-10-06 21:02] LABS: MANUAL DIFF FLAG NO
[2023-10-06 21:03] LABS: Basophils Absolute Auto 0.1 X10*3/uL (0.0-0.2); Eosinophils Absolute Auto 0.2 X10*3/uL (0.0-0.4); Eosinophils Percent Auto 2.6 % (0-4); Hematocrit 38.4 % (37.0-47.0); Hemoglobin 12.7 g/dl (12.0-16.0); Imm Gran Abs Auto 0.02 X10*3/uL (0.00-0.03); Imm Gran Pct Auto 0.3 % (0.0-0.4); Lymphocytes Absolute Auto 1.7 X10*3/uL (1.2-4.9); Lymphocytes Percent Auto 21.6 % (20-40); Mean Corpuscular HGB Conc 33.1 g/dl (31.0-35.0); Mean Corpuscular Hemoglobin 29.7 pg (27.0-33.0); Mean Corpuscular Volume 89.7 fL (80.0-98.0); Mean Platelet Volume 10.8 fL (9.4-12.3); Monocytes Absolute Auto 0.5 X10*3/uL (0.1-1.2); Monocytes Percent Auto 6.8 % (2-11); Neutrophils Absolute Auto 5.4 x10*3/uL (2.0-8.3); Neutrophils Percent Auto 67.7 % (45-73); Platelet Count 205 X10*3/uL (160-400); Red Blood Count 4.28 X10*6/uL (4.20-5.50); Red Cell Distribution Width 13.8 % (11.0-16.0)
[2023-10-06 21:08] LABS: INTERNATIONAL NORM RATIO 0.9 (0.9-1.1); Prothrombin Time 10.5 SEC (11.1-13.3)
[2023-10-06 21:17] LABS: Alanine Aminotransferase 16 U/L (0-31); Albumin Level 3.3 g/dL (3.5-5.0); Alkaline Phosphatase 66 U/L (39-117); Anion Gap 14 (12-20); Aspartate Amino Transferase 18 U/L (5-31); Bilirubin Total 0.1 mg/dL (0.0-1.0); Blood Urea Nitrogen 14 mg/dL (9-16); Calcium 8.8 mg/dL (8.4-10.2); Carbon Dioxide 25 mmol/L (22-29); Chloride 105 mmol/L (96-108); Creatinine Clr Calc Pharmacy 168.2; Estimated Glomerular Filt Rate > 60; Glucose Random 114 mg/dL (60-115); Lipase 34 U/L (8-78); Magnesium 2.1 mg/dL (1.6-2.6); Potassium 4.5 mmol/L (3.3-5.1); Sodium 139 mmol/L (135-145); Total Protein 6.8 g/dL (6.5-8.0)
[2023-10-06 21:24] LABS: HCG Quantitative 11935 mIU/mL
[2023-10-06 23:52] VITALS: BP 105/60; PULSE 82; RESP 18; TEMP 36.2; O2SAT 100
== END 2023-10-07 03:11 | disposition left against medical advice (07) ==
PROVIDERS: Physician Assistant Medical; Emergency Provider Emergency Medicine
DX: O20.9 Hemorrhage in early pregnancy, unspecified (principal); R11.2 Nausea with vomiting, unspecified
CPT/HCPCS: 36415; 80053; 83690; 83735; 84702; 85025; 85610; 99281; 99283

== ENCOUNTER 2024-01-04 12:35 | Emergency (ER) | payer MEDICAID, SELFPAY ==
--- NOTE | 2024-01-04 | ECG_ITS ---
Test Reason : CP Blood Pressure : / mmHG Vent. Rate : 093 BPM Atrial Rate : 093 BPM P-R Int : 158 ms QRS Dur : 076 ms QT Int : 328 ms P-R-T Axes : 047 045 038 degrees QTc Int : 407 ms Normal sinus rhythm Normal ECG When compared with ECG of 06-JUN-2023 09:19, No significant change was found Referred By: Generic ED Physician Electronically Signed By:UZIEL ROSENBAUM MD
--- NOTE | ~2024-01-04 | XR_ITS ---
EXAMINATION: XR CHEST CLINICAL INFORMATION: Left-sided pain COMPARISON: 06/06/2023. TECHNIQUE: 2 views of the chest were obtained. FINDINGS: Lungs clear. No pleural effusions. Heart and pulmonary vessels are normal. XR/XR chest 2V IMPRESSION: No active disease.
[2024-01-04 12:46] VITALS: BP 124/64; PULSE 86; RESP 18; TEMP 36.3; O2SAT 99; BMI 48.0
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
[2024-01-04 13:03] LABS: MANUAL DIFF FLAG NO
[2024-01-04 13:05] LABS: Basophils Absolute Auto 0.1 X10*3/uL (0.0-0.2); Basophils Percent Auto 1.3 % (0-2); Eosinophils Absolute Auto 0.2 X10*3/uL (0.0-0.4); Eosinophils Percent Auto 3.8 % (0-4); Hematocrit 39.1 % (37.0-47.0); Hemoglobin 12.8 g/dl (12.0-16.0); Imm Gran Abs Auto 0.02 X10*3/uL (0.00-0.03); Imm Gran Pct Auto 0.3 % (0.0-0.4); Lymphocytes Absolute Auto 1.3 X10*3/uL (1.2-4.9); Lymphocytes Percent Auto 22.1 % (20-40); Mean Corpuscular HGB Conc 32.7 g/dl (31.0-35.0); Mean Corpuscular Hemoglobin 29.2 pg (27.0-33.0); Mean Corpuscular Volume 89.3 fL (80.0-98.0); Mean Platelet Volume 11.2 fL (9.4-12.3); Monocytes Absolute Auto 0.5 X10*3/uL (0.1-1.2); Monocytes Percent Auto 7.5 % (2-11); Neutrophils Absolute Auto 3.9 x10*3/uL (2.0-8.3); Platelet Count 228 X10*3/uL (160-400); Red Blood Count 4.38 X10*6/uL (4.20-5.50); Red Cell Distribution Width 13.6 % (11.0-16.0)
[2024-01-04 13:10] LABS: INTERNATIONAL NORM RATIO 0.9 (0.9-1.1); Prothrombin Time 11.3 SEC (11.1-13.3)
[2024-01-04 13:14] VITALS: BP 111/66; PULSE 86; RESP 14; O2SAT 95
[2024-01-04 13:26] LABS: Alanine Aminotransferase 20 U/L (0-31); Albumin Level 3.8 g/dL (3.5-5.0); Alkaline Phosphatase 65 U/L (39-117); Anion Gap 10 (12-20); Aspartate Amino Transferase 20 U/L (5-31); Bilirubin Total 0.3 mg/dL (0.0-1.0); Blood Urea Nitrogen 13 mg/dL (9-16); Carbon Dioxide 27 mmol/L (22-29); Chloride 106 mmol/L (96-108); Creatinine Clr Calc Pharmacy 140.3; Estimated Glomerular Filt Rate > 60; Glucose Random 86 mg/dL (60-115); Magnesium 1.8 mg/dL (1.6-2.6); Potassium 4.1 mmol/L (3.3-5.1); Sodium 139 mmol/L (135-145)
[2024-01-04 13:35] LABS: Troponin-I High Sensitivity < 2.7 ng/L (<3.5-17.0)
[2024-01-04 13:45] LABS: HCG Quantitative < 2 mIU/mL
[2024-01-04] MEDS: Acetaminophen 325 MG TABLET 975 MG PO (14:25)
[2024-01-04] MEDS: Ketorolac Tromethamine 30 MG/ML VIAL IM (14:27)
[2024-01-04 14:28] VITALS: BP 111/66; PULSE 86; RESP 14; TEMP 36.3; O2SAT 95
== END 2024-01-04 14:29 | disposition home or self-care (01) ==
PROVIDERS: Physician Assistant Medical; Emergency Provider Emergency Medicine
DX: R07.9 Chest pain, unspecified (principal); Z82.49 Family history of ischemic heart disease and other diseases of the circulatory system; Z83.3 Family history of diabetes mellitus; Z84.89 Family history of other specified conditions
CPT/HCPCS: 36415; 71046; 80053; 83735; 84484; 84702; 85025; 85610; 93005; 96372; 99284; J1885

== ENCOUNTER → 2024-01-04 12:36 | Outpatient (BNV) | payer MEDICAID, SELFPAY | PROVIDERS: Emergency Provider Emergency Medicine; Visit Provider Internal Medicine Cardiovascular Disease | DX: R07.9 Chest pain, unspecified (principal) | CPT/HCPCS: 93010 ==

== ENCOUNTER 2024-04-20 13:26 | Emergency (ER) | payer MEDICAID, SELFPAY ==
--- NOTE | ~2024-04-20 | XR_ITS ---
EXAMINATION: XR ANKLE, LEFT CLINICAL INFORMATION: Fall, pain COMPARISON: None available. TECHNIQUE: AP, lateral, and mortise views of the left ankle. FINDINGS: No fracture. Alignment is anatomic. No erosions. Joint spaces are maintained. Soft tissues swelling overlying the lateral malleolus. XR/XR ankle LT min 3V IMPRESSION: Soft tissue swelling overlying the lateral malleolus. Electronically signed by: Malka Campa MD 04/20/2024 06:28 PM EDT RP
--- NOTE | ~2024-04-20 | XR_ITS ---
EXAMINATION: XR FOOT, LEFT CLINICAL INFORMATION: Fall, lateral pain COMPARISON: None available. TECHNIQUE: AP, lateral, and oblique views of the left foot. FINDINGS: The bones are normal. No fracture. Alignment is anatomic. Joint spaces are maintained. Soft tissue swelling overlying the lateral malleolus. XR/XR foot LT min 3V IMPRESSION: Soft tissue swelling overlying the lateral malleolus. Electronically signed by: Malka Campa MD 04/20/2024 06:29 PM EDT
[2024-04-20 13:47] VITALS: BP 99/51; PULSE 76; RESP 16; TEMP 37; O2SAT 98; BMI 46.1
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
[2024-04-20 15:13] LABS: UPreg QC Valid YES; Urine Pregnancy NEGATIVE (NEGATIVE)
[2024-04-20] MEDS: Ketorolac Tromethamine 15 MG/ML VIAL IM (19:26)
[2024-04-20 19:57] VITALS: BP 99/51; PULSE 76; RESP 16; TEMP 37; O2SAT 98
== END 2024-04-20 19:58 | disposition home or self-care (01) ==
PROVIDERS: Nurse Practitioner Family; Emergency Provider Emergency Medicine
DX: S93.402A Sprain of unspecified ligament of left ankle, initial encounter (principal); X50.1XXA Overexertion from prolonged static or awkward postures, initial encounter; Y93.89 Activity, other specified; Y92.9 Unspecified place or not applicable; Y99.9 Unspecified external cause status
CPT/HCPCS: 73610; 73630; 81025; 96372; 99283; 99284; J1885

== ENCOUNTER 2024-05-20 13:20 | Emergency (ER) | payer MEDICAID, SELFPAY ==
[2024-05-20 13:23] VITALS: BP 110/56; PULSE 90; RESP 16; TEMP 36.3; O2SAT 97; BMI 46.7
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
[2024-05-20 13:36] VITALS: BP 110/56; PULSE 90; RESP 16; TEMP 36.3; O2SAT 97
== END 2024-05-20 13:37 | disposition home or self-care (01) ==
PROVIDERS: Emergency Provider Emergency Medicine
DX: K04.7 Periapical abscess without sinus (principal)
CPT/HCPCS: 99282

== ENCOUNTER 2024-06-24 14:37 | Emergency (ER) | payer MEDICAID, SELFPAY ==
[2024-06-24 15:08] VITALS: BP 111/57; PULSE 107; RESP 16; TEMP 37.2; O2SAT 96; BMI 44.3
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
[2024-06-24 15:31] LABS: MANUAL DIFF FLAG NO
[2024-06-24 15:32] LABS: Basophils Percent Auto 0.4 % (0-2); Eosinophils Absolute Auto 0.1 X10*3/uL (0.0-0.4); Hematocrit 41.5 % (37.0-47.0); Imm Gran Abs Auto 0.03 X10*3/uL (0.00-0.03); Imm Gran Pct Auto 0.4 % (0.0-0.4); Lymphocytes Absolute Auto 0.4 X10*3/uL (1.2-4.9); Lymphocytes Percent Auto 5.4 % (20-40); Mean Corpuscular HGB Conc 33.7 g/dl (31.0-35.0); Mean Corpuscular Volume 88.9 fL (80.0-98.0); Mean Platelet Volume 10.8 fL (9.4-12.3); Monocytes Absolute Auto 0.3 X10*3/uL (0.1-1.2); Monocytes Percent Auto 3.5 % (2-11); Neutrophils Absolute Auto 7.3 x10*3/uL (2.0-8.3); Neutrophils Percent Auto 89.3 % (45-73); Platelet Count 258 X10*3/uL (160-400); Red Blood Count 4.67 X10*6/uL (4.20-5.50); Red Cell Distribution Width 12.8 % (11.0-16.0); White Blood Count 8.2 X10*3/uL (4.8-10.8)
[2024-06-24 16:10] LABS: Influenza A PCR NEGATIVE (Negative); Influenza B PCR NEGATIVE (Negative); Resp Syncy Virus RNA Qual PCR NEGATIVE (Negative); SARS COV2 PCR INHOUSE NEGATIVE (Negative)
[2024-06-24] MEDS: Ondansetron ODT 4 MG TAB.RAPDIS TRANSLINGU (16:48)
[2024-06-24] MEDS: cefTRIAXone sodium 500 MG, Lidocaine HCl 1 % MPF 1 ML IM (16:50)
[2024-06-24 17:12] LABS: Alanine Aminotransferase 24 U/L (0-31); Albumin Level 3.9 g/dL (3.5-5.0); Alkaline Phosphatase 67 U/L (39-117); Anion Gap 12 (12-20); Aspartate Amino Transferase 21 U/L (5-31); Bilirubin Total 0.5 mg/dL (0.0-1.0); Blood Urea Nitrogen 8 mg/dL (9-16); Calcium 8.7 mg/dL (8.4-10.2); Carbon Dioxide 26 mmol/L (22-29); Chloride 107 mmol/L (96-108); Creatinine Clr Calc Pharmacy 147.3; Estimated Glomerular Filt Rate > 60; Glucose Random 88 mg/dL (60-115); Lipase 13 U/L (8-78); Magnesium 1.9 mg/dL (1.6-2.6); Potassium 3.6 mmol/L (3.3-5.1); Sodium 141 mmol/L (135-145); Total Protein 7.2 g/dL (6.5-8.0)
[2024-06-24 17:14] LABS: HCG Quantitative < 2 mIU/mL
[2024-06-24 17:24] LABS: Appearance Urine Cloudy; Color Urine Dark Yellow; Glucose Urine UA Negative (Negative); Leukocyte Esterase Urine Negative (Negative); Nitrite Urine Negative (Negative); Specific Gravity - Urine >= 1.030 (1.005-1.025); UMIC TRIGGER UACC YES; Urine Blood Negative (Negative); Urine Ketones 15 mg/dL (Negative); Urine Protein 30 (1+) mg/dL (Neg-Trace)
[2024-06-24 17:25] LABS: UPreg QC Valid YES; Urine Pregnancy NEGATIVE (NEGATIVE)
[2024-06-24 17:38] LABS: Bacteria Urine Trace (None Seen); RBC Urine 0-2 /HPF (0-2); WBC Urine 0-5 /HPF (0-5)
[2024-06-24 17:57] VITALS: BP 104/58; PULSE 85; RESP 16; TEMP 37.2; O2SAT 97
[2024-06-25 03:00] LABS: CT PCR NOT DETECTED (Not Detect.); NG PCR NOT DETECTED (Not Detect.)
[2024-06-25 11:09] LABS: Bacterial Vaginosis PCR NEGATIVE (Negative); Candida Group PCR DETECTED (Not Detect); Candida glab krusei PCR NOT DETECTED (Not Detect); Trichomonas vaginalis PCR NOT DETECTED (Not Detect)
== END 2024-06-24 17:58 | disposition home or self-care (01) ==
PROVIDERS: Nurse Practitioner Family; Emergency Provider Emergency Medicine
DX: K52.9 Noninfective gastroenteritis and colitis, unspecified (principal); R10.2 Pelvic and perineal pain; R11.2 Nausea with vomiting, unspecified; N89.8 Other specified noninflammatory disorders of vagina; Z03.818 Encounter for observation for suspected exposure to other biological agents ruled out; Z79.899 Other long term (current) drug therapy
CPT/HCPCS: 0241U; 0352U; 80053; 81001; 81025; 83690; 83735; 84702; 85025; 87491; 87591; 96372; 99283; 99284; J0696; J2003

== ENCOUNTER 2024-07-23 15:03 | Emergency (ER) | payer MEDICAID, SELFPAY ==
[2024-07-23 15:50] VITALS: BP 110/66; PULSE 77; RESP 16; TEMP 36.1; O2SAT 100; BMI 44.3
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
[2024-07-23 16:20] LABS: MANUAL DIFF FLAG NO
[2024-07-23 16:23] LABS: Basophils Absolute Auto 0.1 X10*3/uL (0.0-0.2); Basophils Percent Auto 1.3 % (0-2); Eosinophils Absolute Auto 0.2 X10*3/uL (0.0-0.4); Eosinophils Percent Auto 3.5 % (0-4); Hematocrit 39.6 % (37.0-47.0); Hemoglobin 13.3 g/dl (12.0-16.0); Imm Gran Abs Auto 0.01 X10*3/uL (0.00-0.03); Imm Gran Pct Auto 0.2 % (0.0-0.4); Lymphocytes Absolute Auto 1.5 X10*3/uL (1.2-4.9); Lymphocytes Percent Auto 25.9 % (20-40); Mean Corpuscular HGB Conc 33.6 g/dl (31.0-35.0); Mean Corpuscular Hemoglobin 30.1 pg (27.0-33.0); Mean Corpuscular Volume 89.6 fL (80.0-98.0); Mean Platelet Volume 11.6 fL (9.4-12.3); Monocytes Absolute Auto 0.4 X10*3/uL (0.1-1.2); Monocytes Percent Auto 7.1 % (2-11); Neutrophils Absolute Auto 3.7 x10*3/uL (2.0-8.3); Platelet Count 217 X10*3/uL (160-400); Red Blood Count 4.42 X10*6/uL (4.20-5.50); Red Cell Distribution Width 13.5 % (11.0-16.0); White Blood Count 5.9 X10*3/uL (4.8-10.8)
[2024-07-23 16:27] LABS: Prothrombin Time 11.1 SEC (10.9-12.4)
[2024-07-23 17:05] LABS: Alanine Aminotransferase 26 U/L (0-31); Albumin Level 3.7 g/dL (3.5-5.0); Alkaline Phosphatase 62 U/L (39-117); Anion Gap 12 (12-20); Aspartate Amino Transferase 21 U/L (5-31); Bilirubin Total 0.2 mg/dL (0.0-1.0); Blood Urea Nitrogen 12 mg/dL (9-16); Calcium 8.7 mg/dL (8.4-10.2); Carbon Dioxide 24 mmol/L (22-29); Chloride 109 mmol/L (96-108); Creatinine Clr Calc Pharmacy 145.3; Estimated Glomerular Filt Rate > 60; Glucose Random 95 mg/dL (60-115); Sodium 141 mmol/L (135-145); Total Protein 6.6 g/dL (6.5-8.0)
[2024-07-23 17:08] LABS: HCG Quantitative 51 mIU/mL
[2024-07-23 19:19] LABS: Appearance Urine Cloudy; Color Urine Yellow; Glucose Urine UA Negative (Negative); Leukocyte Esterase Urine Moderate (2+) (Negative); Nitrite Urine Negative (Negative); Specific Gravity - Urine >= 1.030 (1.005-1.025); UMIC TRIGGER UACC YES; Urine Blood Negative (Negative); Urine Ketones Negative (Negative); Urine Protein Negative (Neg-Trace)
[2024-07-23 19:24] LABS: Bacteria Urine 2+ (None Seen); Hyaline Casts Urine 0-2 /LPF (0-2); RBC Urine 0-2 /HPF (0-2); Squamous Epithelial Cell Urine >20 /HPF (0-2); UACC Culture Trigger YES
== END 2024-07-23 23:50 | disposition left against medical advice (07) ==
PROVIDERS: Registered Nurse Emergency; Emergency Provider Emergency Medicine; PCP Pediatrics
DX: O20.9 Hemorrhage in early pregnancy, unspecified (principal); Z3A.01 Less than 8 weeks gestation of pregnancy
CPT/HCPCS: 36415; 80053; 81001; 84702; 85025; 85610; 86900; 86901; 87086; 99282; 99283

== ENCOUNTER 2024-08-08 13:42 | Emergency (ER) | payer MEDICAID, SELFPAY ==
--- NOTE | ~2024-08-08 | US_ITS ---
EXAMINATION: US OBSTETRICAL ULTRASOUND CLINICAL INFORMATION: . Vaginal bleed. COMPARISON: None available. LMP: Unknown. Gestational age by maternal dates is unknown. Estimated date of delivery by maternal dates is unknown. TECHNIQUE: Real-time obstetric pelvic ultrasound performed using grayscale and color Doppler technique. FINDINGS: There is a single intrauterine gestational sac with visible yolk sac, embryo/fetus, and cardiac activity. There is no significant subchorionic hemorrhage or hematoma. HR: 117 beats per minute. CRL (crown rump length): 0.25 cm ( +/- 4 days). MIRANDA (estimated date of delivery): 04/04/2025 +/- 4 days. MATERNAL ADNEXA: The right maternal ovary measures 4 x 3 x 3 cm. The left maternal ovary measures 2 x 2 x 2 cm. There is no significant maternal adnexal mass. No maternal pelvic ascites. US/US OB pelvic and transvaginal IMPRESSION: 1. Single viable intrauterine gestation with ultrasound gestational age of 5 weeks and 6 days +/- 4 days. 2. Estimated date of delivery is 04/04/2025 +/- 4 days. 3. No maternal adnexal mass or pelvic ascites. Electronically signed by: Juan Gay MD 08/08/2024 02:59 PM EST
[2024-08-08 14:03] VITALS: BP 131/111; PULSE 97; RESP 18; TEMP 36.9; O2SAT 97; BMI 44.6
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
[2024-08-08 16:25] LABS: MANUAL DIFF FLAG NO
[2024-08-08 16:26] LABS: Basophils Percent Auto 0.4 % (0-2); Eosinophils Absolute Auto 0.1 X10*3/uL (0.0-0.4); Eosinophils Percent Auto 1.1 % (0-4); Hemoglobin 12.7 g/dl (12.0-16.0); Imm Gran Abs Auto 0.02 X10*3/uL (0.00-0.03); Imm Gran Pct Auto 0.2 % (0.0-0.4); Lymphocytes Absolute Auto 1.6 X10*3/uL (1.2-4.9); Lymphocytes Percent Auto 17.8 % (20-40); Mean Corpuscular HGB Conc 34.3 g/dl (31.0-35.0); Mean Corpuscular Volume 87.3 fL (80.0-98.0); Mean Platelet Volume 11.3 fL (9.4-12.3); Monocytes Absolute Auto 0.4 X10*3/uL (0.1-1.2); Monocytes Percent Auto 4.7 % (2-11); Neutrophils Absolute Auto 6.8 x10*3/uL (2.0-8.3); Neutrophils Percent Auto 75.8 % (45-73); Platelet Count 206 X10*3/uL (160-400); Red Blood Count 4.24 X10*6/uL (4.20-5.50); Red Cell Distribution Width 12.9 % (11.0-16.0)
[2024-08-08 16:32] LABS: Appearance Urine Clear; Color Urine Yellow; Glucose Urine UA Negative (Negative); Leukocyte Esterase Urine Small (1+) (Negative); Nitrite Urine Negative (Negative); PH 6.5 (5.0-9.0); Specific Gravity - Urine >= 1.030 (1.005-1.025); UMIC TRIGGER UACC YES; UPreg QC Valid YES; Urine Blood Moderate (2+) (Negative); Urine Ketones Trace mg/dL (Negative); Urine Pregnancy POSITIVE (NEGATIVE); Urine Protein Trace mg/dL (Neg-Trace)
[2024-08-08 16:41] LABS: Alanine Aminotransferase 18 U/L (0-31); Albumin Level 3.6 g/dL (3.5-5.0); Alkaline Phosphatase 54 U/L (39-117); Anion Gap 9 (12-20); Aspartate Amino Transferase 22 U/L (5-31); Bilirubin Total 0.1 mg/dL (0.0-1.0); Blood Urea Nitrogen 12 mg/dL (9-16); Calcium 8.4 mg/dL (8.4-10.2); Carbon Dioxide 21 mmol/L (22-29); Chloride 109 mmol/L (96-108); Creatinine Clr Calc Pharmacy 107.5; Estimated Glomerular Filt Rate > 60; Glucose Random 91 mg/dL (60-115); Lipase 15 U/L (8-78); Magnesium 1.9 mg/dL (1.6-2.6); Potassium 3.6 mmol/L (3.3-5.1); Sodium 135 mmol/L (135-145)
[2024-08-08 17:01] LABS: HCG Quantitative 30729 mIU/mL
[2024-08-08 17:03] LABS: Bacteria Urine None Seen (None Seen); Hyaline Casts Urine 0-2 /LPF (0-2); RBC Urine 0-2 /HPF (0-2); UACC Culture Trigger YES; WBC Urine 0-5 /HPF (0-5)
[2024-08-08 17:37] LABS: Prothrombin Time 11.9 SEC (10.9-12.4)
[2024-08-08 17:57] VITALS: BP 112/48; PULSE 71; RESP 18; TEMP 36.8; O2SAT 100
--- OUTSIDE RECORDS SUMMARY | 2024-08-08 18:10 | XMS_ITS | Encounter Summary ---
Author Organization [facility] Address [address] [facility] [address] [place] [address] Care Team Providers Care Occupational Health And Safety Manager Name Role Phone Geovanna Aguilar MD Primary Care Pro vider Reason for Visit * Reason Onset Date Comments Care Management 07/24/2024 C3- chart revi ew Encounter Details Date Type Department Care Team ([facility] st Contact Info) Description 07/24/2024 Telephone [facility] MEDICINE [address] [place] [address] Albertina Marcos, MIGUEL [address] [place] [address] Care Management (C3CM- chart review) Social History Tobacco Use Types Packs/Day Years Used Date Smoking Tobacco: Never Assessed Housing Stability Answer Date Recorded What is your housing situation today? I have venessa sing 07/24/[address] you li ve. Do you have problems with any of the following? None of the above 07/24/2024 Food Insecurity Answer Date Recorded Within the past 12 months, y ou worried that your food would run out before you got money to buy more: Sometimes True 2024 Within the past 12 months,th e food you bought just didn't last and you didn't have enough money to get more: Sometimes True 07/24/2024 Transportation Answer Date Recorded In the past 12 months, has l ack of transportation kept you from medical appts, meetings, work or from getting things needed for daily living? No 07/24/2024 Utilities Answer Date Recorded In the past 12 months, has t he electric, gas, oil or water company threatened to shut off services in your home? No 07/24/2024 Internet Access Answer Date Recorded Internet Access Q1 Yes 07/24/2024 Internet Access Q2 Not on file 07/24/2024 Comments Unknown Sex and Gender Information Value Date Recorded Sex Assigned at Female 05/10/2022 10:18 AM EDT Legal Sex Female 10:18 AM EDT Gender Identity Female 05/10/2022 10:18 AM EDT Sexual Orientation Straight 05/10/2022 10 :18 AM EDT documented as of this encounter Miscellaneous Notes * Telephone Encounter - Albertina Marcos RN - 07/24/2024 8:20 AM EST ZENIA Marcos RN, performed chart review, in anticipation of initial assessment with patient, as patient has stratified for C3 Adult Complex Care through the ADT feed. History significant for morbid obesity, weight gain, anemia, intermittent explosive disorder, and PTSD. Specialists include [facility] Dental. ED visits within the last 12 months include [facility] 07/23/24 [facility] 06/24/24, [facility] 05/20/24, [facility] 04/20/24. Last appointment in PCP office on 08/02/22- RN visit for immunization. Multiple noshow visits on file including no show- TP appt on 10/13/22. No future appointments scheduled at this time. Will need TP appt. documented in this encounter Plan of Treatment Not on file documented as of this encounter Visit Diagnoses Not on filedocumented in this encounter Care Teams Occupational Health And Safety Manager Relationship Specialty Start Date End Date Geovanna Aguilar MD [address] [place] [id number] PCP - General Internal Medicine 03/18/23 documented as of this encounter
--- OUTSIDE RECORDS SUMMARY | 2024-08-08 18:10 | XMS_ITS | Encounter Summary ---
Author Organization [employer] Address [address] [facility] [address] [place] [address] Care Team Providers Care Contract Attorney Name Role Phone Geovanna Aguilar MD Primary Care Pro vider Encounter Details Date Type Department Care Team ([facility] st Contact Info) Description 07/24/2024 Patient Outreach [facility] MED[facility]INE [address] [place] [address] Geovanna Aguilar MD [address] [place] [address] Social History Tobacco Use Types Packs/Day Years Used Date Smoking Tobacco: Never Assessed Housing Stability Answer Date Recorded What is your housing situation today? I have venessa cordelia 07/24/[address] you li [...] AM EDT documented as of this encounter Plan of Treatment Not on file documented as of this encounter Visit Diagnoses Not on filedocumented in this encounter Care Teams Contract Attorney Relationship Specialty Start Date End Date Geovanna Aguilar MD [address] [place] [id number] PCP - General Internal Medicine 03/18/23 documented as of this encounter
--- OUTSIDE RECORDS SUMMARY | 2024-08-08 18:11 | XMS_ITS | Encounter Summary ---
Author Organization [employer] Address [address] [facility] [address]t [place] [address] Care Team Providers Care Business Law Instructor Name Role Phone Geovanna Aguilar MD Primary Care Pro vider Encounter Details Date Type Department Care Team (Late st Contact Info) Description 08/08/2024 Orders Only [facility] External Provider, [facility] Social History Tobacco Use Types Packs/Day Years Used Date Smoking Tobacco: Never Assessed Housing Stability Answer Date Recorded What is your housing situation today? I have venessamichi storey 07/24/[address] you li [...] on file documented as of this encounter Procedures Procedure Name Priority Date/Time Associated Diagnosis Comments URINALYSIS, COMPLETE, WITH REFLEX TO CULTURE Routine 08/08/2024 4:20 PM EST CBC WITH AUTO DIFFERENTIAL Routine 08/08/2024 4:20 PM EST HCG, QL, URINE Routine 08/08/2024 4:20 PM EST PROTHROMBIN TIME-INR Routine 08/08/2024 4:20 PM EST TYPE AND SCREEN Routine 08/08/2024 4:20 PM EST HCG, TOTAL, QN Routine 08/08/2024 4:20 PM EST MAGNESIUM Routine 08/08/2024 4:20 PM EST LIPASE Routine 08/08/2024 4:20 PM EST COMPREHENSIVE METABOLIC PANEL Routine 08/08/2024 4:20 PM EST US OB PELVIS TRANSVAGINAL Routine 08/08/2024 2:18 PM EST documented in this encounter Results * Prothrombin Time-INR (08/08/2024 4:20 PM EST) Prothrombin Time 11.9 10.9 - 12.4 SEC [facility] INTERNATIONAL NORM RATIO 1.0 0.9 - 1.1 [facility] Comment:INTERNATIONAL NORMAL IZED RATIO (INR) REFERENCE RANGES Reference RangeFor patients not on anticoagulant therapy: 0.9 - 1.1INR ranges for oral anticoagulanttherapy:For prevention and treatment of venous thrombosis and pulmonary embolism: 2.0 - 3.0For acute myocardial infarction with aspirin therapy: 2.0 - 3.0For acute myocardial infarction without aspirin therapy: 3.0 - 4.0For patients with mechanical prosthetic heart valves: 2.5 - 3.5 08/08/2024 4:20 PM EST 08/08/2024 4:23 PM EST Generic External Data Provider LAB BLOOD ORDERAB LES Final Result Performing Organization Address [facility] Co de Phone Number [facility] [address] [place] [phone] * Type and screen (08/08/2024 4:20 PM EST) Blood Type OP [facility] Antibody Screen NEGATIVE [facility] 08/08/2024 4:20 PM EST 08/08/2024 4:28 PM EST Generic External Data Provider LAB BLOOD BANK TE ST ORDERABLES Final Result Performing Organization Address [facility] Co de Phone Number [facility] [address] [place] [phone] * hCG, Total, Quantitative (08/08/2024 4:20 PM EST) HCG Quantitative 30,729 mIU/mL [facility] Comment:Weeks post LMP Appro ximate hCG(Last Menstrual Period) Range (mIU/ml)3 - 4 weeks 9 - 1304 - 5 weeks 75 - 2,6005 - 6 weeks 850 - 20,8006 - 7 weeks 4000 - 100,2007 - 12 weeks 11,500 - 289,76798 - 16 weeks 18,300 - 137,60024 - 29 weeks (2nd trimester) 1,400 - 53,99265 - 41 weeks (3rd trimester) 940 - 60,000The Vazquez B- hCG assay is used for the early detection ofpregnancy; it cannot be used to diagnose any conditionunrelated to . If a B-hCG level is not supportedby the clinical evidence, results should be confirmed by analternative method (qualitative urine hCG, for example). 08/08/2024 4:20 PM EST 08/08/2024 4:23 PM EST us Generic External Data Provider LAB BLOOD ORDERAB LES Final Result Performing Organization Address [facility] de Phone Number [facility] [address] [place] [phone] * Lipase (08/08/2024 4:20 PM EST) Pathologist [facility] Lipase 15 8 - 78 U/L [facility] 08/08/2024 4:20 PM EST 08/08/2024 4:23 PM EST Generic External Data Provider LAB BLOOD ORDERAB LES Final Result Performing Organization Address [facility] Phone Number [facility] [address] [place] [phone] * Magnesium (08/08/2024 4:20 PM EST) Pathologist [facility] Magnesium 1.9 1.6 - 2.6 mg/dL [facility] 08/08/2024 4:20 PM EST 08/08/2024 4:23 PM EST Generic External Data Provider LAB BLOOD ORDERAB LES Final Result Performing Organization Address [facility] Phone Number [facility] [address] [place] [phone] * (ABNORMAL) Comprehensive Metabolic Panel (08/08/2024 4:20 PM EST) Pathologist [facility] Sodium 135 135 - 145 mmol/L [facility] Potassium 3.6 3.3 - 5.1 mmol/L [facility] Comment:Slight Hemolysis.Int erpret result with caution. Chloride 109(H) 96 - 108 mmol/L [facility] Carbon Dioxide 21(L) 22 - 29 mmol/L [facility] Anion Gap 9(L) 12 - 20 [facility] Urea Nitrogen (BUN) 12 9 - 16 mg/dL [facility] Creatinine, Serum 0.99 0.5 - 1.4 mg/dL [facility] Creatinine Clr Calc Pharmacy 107.5 [facility] Comment:Provided height and weight: 160.02 cm,114.2 kg.eGFR (calculated from the MDRD study equation) and eCrCl(calculated from the Cockcroft-Gault equation) are based ondifferent parameters and may not yield comparable results.If eCrCl result is absurd, please check patient'sheight/weight. Estimated Glomerular Filt Rate >60 [facility] Comment:Chronic Kidney Disea se: Estimated GFR < 60 mL/min/1.78a7Hyusgs Kidney Disease: Estimated GFR < 15 mL/min/1.73m2 Glucose 91 60 - 115 mg/dL [facility] Calcium 8.4 8.4 - 10.2 mg/dL [facility] Bilirubin, Total 0.1 0.0 - 1.0 mg/dL [facility] Aspartate Amino Transferase 22 5 - 31 U/L [facility] Comment:Slight Hemolysis.Int erpret result with caution. Alanine Aminotransferase 18 0 - 31 U/L [facility] Total Protein 7.0 6.5 - 8.0 g/dL [facility] Albumin Level 3.6 3.5 - 5.0 g/dL [facility] Alkaline Phosphatase 54 39 - 117 U/L [facility] 08/08/2024 4:20 PM EST 08/08/2024 4:23 PM EST us Generic External Data Provider LAB BLOOD ORDERAB LES Final Result [facility] [address] [place] [phone] * (ABNORMAL) Urinalysis, Complete, with Reflex to Culture (08/08/2024 4:20 PM EST) Color Urine Yellow [facility] Appearance Urine Clear [facility] PH 6.5 5.0 - 9.0 [facility] Glucose Urine UA Negative Negative mg/dL [facility] Urine Blood Moderate (2+)(A) Negative [facility] Specific [place] - Urine >=1.030(H) 1.005 - 1.025 [facility] Urine Protein Trace Neg-Trace mg/dL [facility] Urine Ketones Trace Negative mg/dL [facility] Nitrite Urine Negative Negative [facility] Leukocyte Esterase Urine Small (1+)(A) Negative [facility] RBC Urine 0-2 0 - 2 /HPF [facility] Urine WBC 0-5 0 - 5 /HPF [facility] Urine Squamous Epithelial Cell 6-10 0 - 2 /HPF [facility] Urine Bacteria None Seen None Seen [facility] Hyaline Casts, Urine 0-2 0 - 2 /LPF [facility] 08/08/2024 4:20 PM EST 08/08/2024 4:23 PM EST Narrative [facility] - 08/08/2024 5:04 PM EST [id number], Clean Catch us Generic External Data Provider LAB URINE ORDERAB LES Final Result Performing Organization Address [facility] Co de Phone Number [facility] [address] [place] [phone] * (ABNORMAL) HCG, Qualitative, Urine (08/08/2024 4:20 PM EST) Urine POSITIVE(A ) NEGATIVE [facility] 08/08/2024 4:20 PM EST 08/08/2024 4:23 PM EST Generic External Data Provider LAB URINE ORDERAB LES Final Result Performing Organization Address [facility] Co de Phone Number [facility] [address] [place] [phone] * (ABNORMAL) CBC auto differential (08/08/2024 4:20 PM EST) White Blood Count 9.0 4.8 - 10.8 X10*3/uL [facility] Red Blood Count 4.24 4.20 - 5.50 X10*6/uL [facility] Hemoglobin 12.7 12.0 - 16.0 g/dl [facility] Hematocrit 37.0 37.0 - 47.0 % [facility] Mean Corpuscular Volume 87.3 80.0 - 98.0 fL [facility] Mean Corpuscular Hemoglobin 30.0 27.0 - 33.0 pg [facility] Mean Corpuscular HGB Conc 34.3 31.0 - 35.0 g/dl [facility] Red Cell Distribution Width 12.9 11.0 - 16.0 % [facility] Platelet Count 206 160 - 400 X10*3/uL [facility] Mean Platelet Volume 11.3 9.4 - 12.3 fL [facility] Neutrophils Percent Auto 75.8(H) 45 - 73 % [facility] Imm Gran Pct Auto 0.2 0.0 - 0.4 % [facility] Lymphocytes Percent Auto 17.8(L) 20 - 40 % [facility] Monocytes Percent Auto 4.7 2 - 11 % [facility] Eosinophils Percent Auto 1.1 0 - 4 % [facility] Basophils Percent Auto 0.4 0 - 2 % [facility] NRBC Pct Auto 0.0 0.0 - 0.2 /100WBC [facility] Neutrophils Absolute Auto 6.8 2.0 - 8.3 x10*3/uL [facility] Imm Gran Abs Auto 0.02 0.00 - 0.03 X10*3/uL [facility] Lymphocytes Absolute Auto 1.6 1.2 - 4.9 X10*3/uL [facility] Monocytes Absolute Auto 0.4 0.1 - 1.2 X10*3/uL [facility] Eosinophils Absolute Auto 0.1 0.0 - 0.4 X10*3/uL [facility] Basophils Absolute Auto 0.0 0.0 - 0.2 X10*3/uL [facility] NRBC Abs Auto 0.000 0.0 - 0.012 X10*3/uL [facility] 08/08/2024 4:20 PM EST 08/08/2024 4:23 PM EST us Generic External Data Provider LAB BLOOD ORDERAB LES Final Result [facility] [address] [place] [phone] * US OB Pelvis with Transvaginal (08/08/2024 2:18 PM EST) Anatomical Region Laterality Modality Pelvis Ultrasound 08/08/2024 2:18 PM EST Narrative 08/08/2024 3:02 PM EST ? [facility] ?[address] ?[place] [address] ? Ultrasound Report ? Signed ? Patient: Brito,Guarionis B ?MR#: [id number] ?? [id number] ? : 2000 ?Acct:[id number] ? Age/Sex: 24 / F ?ADM Date: 08/08/24 ? Loc: HO.ED ? Attending Dr: ? Ordering Physician: Irene Hector ?? Date of Service: 08/08/24 ?? Procedure(s): US OB pelvic and transvaginal ?? Accession Number(s): [id number] ? cc: Velma Carlton MD; Irene Hector ? EXAMINATION: ? US OBSTETRICAL ULTRASOUND ? CLINICAL INFORMATION: ? . Vaginal bleed. ? COMPARISON: ? None available. ? LMP: Unknown. ?? Gestational age by maternal dates is unknown. ?? Estimated date of delivery by maternal dates is unknown. ? TECHNIQUE: ?? Real-time obstetric pelvic ultrasound performed using grayscale and ?? color Doppler technique. ? FINDINGS: ?? There is a single intrauterine gestational sac with visible yolk sac, ?? embryo/fetus, and cardiac activity. ??There is no significant ?? subchorionic hemorrhage or hematoma. ? HR: ??117 beats per minute. ? CRL (crown rump length): ?? 0.25 cm ( +/- 4 days). ? MIRANDA (estimated date of delivery): ??04/04/2025 +/- 4 days. ? MATERNAL ADNEXA: ? The right maternal ovary measures 4 x 3 x 3 cm. ? The left maternal ovary measures 2 x 2 x 2 cm. ? There is no significant maternal adnexal mass. ??No maternal pelvic ?? ascites. ? US/ OB pelvic and transvaginal ?? IMPRESSION: ?? 1. Single viable intrauterine gestation with ultrasound gestational age ?? of ??5 weeks and 6 days +/- 4 days. ?? 2. Estimated date of delivery is 04/04/2025 +/- 4 days. ?? 3. No maternal adnexal mass or pelvic ascites. ? Electronically signed by: ??Juan Gay MD ??08/08/2024 02:59 PM ?? [facility] ? Dictated By: ?Juan Hernandez MD ? Signed By: ?<Electronically signed by Juan Clay MD in OV> ? 08/08/24 1459 ? DD/ 1418 ? TD/TT: 08/08/24 1433 ? Map And Chart Mounter: ? Procedure Note Rosa Jaeger - 08/08/2024 [place] [address] Ultrasound Report Signed Patient: Jeremy Brito BMR#: [id number] : 2000Acct:[id number] Age/Sex: 24 / FADM Date: 08/08/24 Loc: HO.ED Attending Dr: Ordering Physician: Irene Hector Date of Service: 08/08/24 Procedure(s): US OB pelvic and transvaginal Accession Number(s): [id number] cc: Velma Carlton MD; Irene Hector EXAMINATION: US OBSTETRICAL ULTRASOUND CLINICAL INFORMATION: . Vaginal bleed. COMPARISON: None available. LMP: Unknown. Gestational age by maternal dates is unknown. Estimated date of delivery by maternal dates is unknown. TECHNIQUE: Real-time obstetric pelvic ultrasound performed using grayscale and color Doppler technique. FINDINGS: There is a single intrauterine gestational sac with visible yolk sac, embryo/fetus, and cardiac activity. There is no significant subchorionic hemorrhage or hematoma. HR: 117 beats per minute. CRL (crown rump length): 0.25 cm ( +/- 4 days). MIRANDA (estimated date of delivery): 04/04/2025 +/- 4 days. MATERNAL ADNEXA: The right maternal ovary measures 4 x 3 x 3 cm. The left maternal ovary measures 2 x 2 x 2 cm. There is no significant maternal adnexal mass. No maternal pelvic ascites. US/US OB pelvic and transvaginal IMPRESSION: 1. Single viable intrauterine gestation with ultrasound gestational age of 5 weeks and 6 days +/- 4 days. 2. Estimated date of delivery is 04/04/2025 +/- 4 days. 3. No maternal adnexal mass or pelvic ascites. Electronically signed by: Juan Gay MD 08/08/2024 02:59 PM EST Dictated By: Juan Hernandez MD Signed By: <Electronically signed by Juan Clay MDin OV> 08/08/24 1459 DD/ 1418 TD/TT: 08/08/24 1433 Map And Chart Mounter: us [facility] External Provider IMG US PROCEDURES Edited Result - Final documented in this encounter Visit Diagnoses Not on filedocumented in this encounter Care Teams Business Law Instructor Relationship Specialty Start Date End Date Geovanna Aguilar MD [address] [place] [phone] PCP - General Internal Medicine 03/18/23 documented as of this encounter
--- OUTSIDE RECORDS SUMMARY | 2024-08-08 18:11 | XMS_ITS | Encounter Summary ---
Author Organization [employer] Address [address] [facility] [address] [place] [address] Care Team Providers Care Headmaster/Mistress Name Role Phone Geovanna Aguilar MD Primary Care Pro vider Reason for Visit * Reason Comments [facility] call outreach Encounter Details Date Type Department Care Team (Latest Contact Info) Description 08/08/2024 Patient Outreach [facility] [address] [place] [address] Geovanna Aguilar MD [address] [place] [address] Care Coordination (C3 -Radha Acuña telephone call outreach) Social History Tobacco Use Types Packs/Day Years [...] AM EDT documented as of this encounter Progress Notes * Micki Acuña - 08/08/2024 9:11 AM EST CHW Micki Acuña placed outbound call to patient. No answer at this time. LVM introducing herself from [facility] CM Department, reminding patient of appointment on 08/09/2024 @ 1:00PM. Requested call back to or , as well as for any additional questions or concerns. documented in this encounter Plan of Treatment Not on file documented as of this encounter Visit Diagnoses Not on filedocumented in this encounter Care Teams Headmaster/Mistress Relationship Specialty Start Date End Date Geovanna Aguilar MD [address] [place] [phone] PCP - General Internal Medicine 03/18/23 documented as of this encounter
--- OUTSIDE RECORDS SUMMARY | 2024-08-08 18:11 | XMS_ITS | Encounter Summary ---
Author Organization [employer] Address [address] [facility] [address] [place] [address] Care Team Providers Care Supervisor Blasting Name Role Phone Geovanna Aguilar MD Primary Care Pro vider Reason for Visit * Reason Onset Date Comments ER Follow-up 08/02/2024 Encounter Details Date Type Department Care Team ([facility] st Contact Info) Description 08/02/2024 Telephone [facility] [address] [place] [address] Annelise Clay, MIGUEL [address] [place] [address] ER Follow-up Social History Tobacco Use Types Packs/Day Years Used Date Smoking Tobacco: Never Assessed Housing Stability Answer Date Recorded What is your housing situation today? I have venessa storey 07/24/[address] you [...] encounter Miscellaneous Notes * Telephone Encounter - Annelise Clay RN - 08/07/2024 10:49 AM EST Pt went to [facility] 08/05/24. Once again, left AMA. Telephone call placed to pt to status check and see if OB referral needed. No answer and v/m not set up. * Telephone Encounter - Annelise Clay RN - 08/02/2024 11:26 AM EST Telephone call placed to pt for status check. Pt reports positive home test. Was told in the ER that she is very early on in and that they wouldn't do an US because she is too early to see anything. Reports that she slipped on ice and fell 3 times in 1 day which was why she originally went to the ER. States she was concerned for the and plans on continuing it. Was atthe ED x8hrs and then was told they wouldn't check on the baby which is why she left. Inquired about vaginal bleeding. Pt reports that it isn't really bleeding, it's more spotting and it's every oncein a while when she wipes. Denies cramping or pain but reports that around her umbilicus feels like shocking . Denies any other Sx. Pt reports that she really just wants to see an OBGYN BENNETT. Reports that she has an appt for 08/10/24 but would like to be seen sooner as she has concerns. Doesn't know which OBGYN office her appt is with, thinks it might be [facility] but isn't certain. Telephone call placed to [facility] OBGYN who stated does not have any appts upcoming at any [facility] office including OBGYN. Telephone call placed to [facility] OBGYN who also does not have any scheduled visits with pt. Please outreach pt for triage - left ED w/o being seen. Per ED note, pt w/ home test, with vaginal bleeding. documented in this encounter Plan of Treatment Not on file documented as of this encounter Visit Diagnoses Not on filedocumented in this encounter Care Teams Supervisor Blasting Relationship Specialty Start Date End Date Geovanna Aguilar MD [address] [place] [phone] PCP - General Internal Medicine 03/18/23 documented as of this encounter
--- OUTSIDE RECORDS SUMMARY | 2024-08-08 18:11 | XMS_ITS | Encounter Summary ---
Author Organization [employer] Address [address] [facility] [address] [place] [address] Care Team Providers Care Valving Machine Operator Name Role Phone Geovanna Aguilar MD Primary Care Pro vider Reason for Visit * Reason Comments Care Coordination C3 -LINDA baker telephone call outreach Encounter Details Date Type Department Care Team (Latest Contact Info) Description 07/24/20[address] Out[address] [facility] [address] [place] [address] Geovanna Aguilar MD [address] [place] [address] Care Coordination (C3 -LINDA Acuña telephone call outreach) Social History Tobacco [...] encounter Progress Notes * Micki Acuña - 07/24/2024 11:29 AM EST CHW Micki Acuña placed outbound call to patient introducing herself from [facility] CM Department, in regards to offering CM-CHW program services. Patient's name and was confirmed. Patient agrees to participate in CHW- program for SDOH needs. SDOH screening completed: 07/24/2024, CHW spoke to patient she is all set with SDOH. CHW reinforced direct contact information for any additional questions or concerns and extended clinic hours on Mondays and Wednesdays, and Walk-In Urgent Care Located in [facility].Patient provided with after-hours line for [facility], , which offer night time triage serviceand option to transfer to asset protection assistant provider if needed. Patient verbalizes understanding, and able torepeat back to publicity writer. documented in this encounter Plan of Treatment Not on file documented as of this encounter Visit Diagnoses Not on filedocumented in this encounter Care Teams Valving Machine Operator Relationship Specialty Start Date End Date Geovanna Aguilar MD [address] [place] [phone] PCP - General Internal Medicine 03/18/23 documented as of this encounter
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
[2024-08-08 18:46] VITALS: BP 112/48; PULSE 71; RESP 18; TEMP 36.8; O2SAT 100
== END 2024-08-08 18:49 | disposition home or self-care (01) ==
PROVIDERS: Physician Assistant Medical; Emergency Provider Emergency Medicine Emergency Medical Services; PCP Pediatrics
DX: O20.9 Hemorrhage in early pregnancy, unspecified (principal); R10.2 Pelvic and perineal pain; Z3A.01 Less than 8 weeks gestation of pregnancy; Z79.899 Other long term (current) drug therapy
CPT/HCPCS: 36415; 76801; 76817; 80053; 81001; 81025; 83690; 83735; 84702; 85025; 85610; 86850; 86900; 86901; 87086; 99283; 99284

== ENCOUNTER 2024-08-13 13:11 | Inpatient (IN) | payer OTHER, SELFPAY ==
--- NOTE | ~2024-08-13 | US_ITS ---
EXAMINATION: US OBSTETRICAL ULTRASOUND CLINICAL INFORMATION: Abdominal pain, . COMPARISON: 08/08/2024, 10/06/2023. LMP: Unknown. TECHNIQUE: Ultrasound of the maternal pelvis is performed using transabdominal and transvaginal transducers. Transvaginal imaging is performed due to inadequate visualization transabdominally. M-mode Doppler is also performed. FINDINGS: There is a single intrauterine gestational sac with visible yolk sac, embryo/fetus, and cardiac activity. There is no significant subchorionic hemorrhage or hematoma. HR: 130 beats per minute. CRL (crown rump length): 0.34 cm (6 weeks 5 days +/- 4 days). MIRANDA (estimated date of delivery): 04/03/2025 +/- 4 days. MATERNAL ADNEXA: The right maternal ovary measures 3.3 x 2.3 x 2.4 cm. Normal sonographic appearance. Probable corpus luteal cyst measuring 1.4 x 1.4 x 1.7 cm. The left maternal ovary measures 3.1 x 1.0 x 2.1 cm. Normal sonographic appearance. There is no significant maternal adnexal mass. No maternal pelvic ascites. US/US OB pelvic and transvaginal IMPRESSION: 1. Single intrauterine gestation with ultrasound gestational age of 6 weeks and 5 days +/- 4 days. 2. Estimated date of delivery is 04/03/2025 +/- 4 days. 3. No gestational complication evident. 4. No maternal adnexal mass or pelvic ascites. Electronically signed by: Moncho Duque MD 08/13/2024 04:44 PM [facility]
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
[2024-08-13 13:27] VITALS: BP 106/66; PULSE 87; RESP 16; O2SAT 98; BMI 35.5
[2024-08-13 13:33] VITALS: RESP 16
[2024-08-13] MEDS: diphenhydrAMINE HCL 25 MG CAPSULE PO (13:47)
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
--- NOTE | 2024-08-13 13:59 | PC.NURSE ---
Pt reporting no home medications
[2024-08-13 14:13] LABS: MANUAL DIFF FLAG NO
[2024-08-13 14:17] LABS: Basophils Percent Auto 0.9 % (0-2); Eosinophils Percent Auto 0.9 % (0-4); Hematocrit 40.8 % (37.0-47.0); Hemoglobin 13.7 g/dl (12.0-16.0); Imm Gran Abs Auto 0.01 X10*3/uL (0.00-0.03); Imm Gran Pct Auto 0.2 % (0.0-0.4); Lymphocytes Absolute Auto 0.3 X10*3/uL (1.2-4.9); Lymphocytes Percent Auto 6.2 % (20-40); Mean Corpuscular HGB Conc 33.6 g/dl (31.0-35.0); Mean Corpuscular Hemoglobin 29.5 pg (27.0-33.0); Mean Corpuscular Volume 87.9 fL (80.0-98.0); Mean Platelet Volume 11.5 fL (9.4-12.3); Monocytes Absolute Auto 0.4 X10*3/uL (0.1-1.2); Neutrophils Absolute Auto 3.6 x10*3/uL (2.0-8.3); Neutrophils Percent Auto 83.8 % (45-73); Platelet Count 195 X10*3/uL (160-400); Red Blood Count 4.64 X10*6/uL (4.20-5.50); Red Cell Distribution Width 12.7 % (11.0-16.0); White Blood Count 4.4 X10*3/uL (4.8-10.8)
[2024-08-13 14:39] LABS: Alanine Aminotransferase 11 U/L (0-31); Albumin Level 3.6 g/dL (3.5-5.0); Anion Gap 15 (12-20); Aspartate Amino Transferase 19 U/L (5-31); Bilirubin Total 0.3 mg/dL (0.0-1.0); Blood Urea Nitrogen 5 mg/dL (9-16); Calcium 9.1 mg/dL (8.4-10.2); Carbon Dioxide 17 mmol/L (22-29); Chloride 107 mmol/L (96-108); Creatinine Clr Calc Pharmacy 170.9; Estimated Glomerular Filt Rate > 60; Ethanol < 10 mg/dL; Glucose Random 81 mg/dL (60-115); Potassium 3.6 mmol/L (3.3-5.1); Sodium 135 mmol/L (135-145); Total Protein 7.2 g/dL (6.5-8.0)
--- NOTE | 2024-08-13 15:01 | PC.NURSE ---
Pt agreeable to blood draw
--- NOTE | 2024-08-13 15:05 | PC.NURSE ---
Marcello CLAUDIO [facility] [phone]
[2024-08-13 15:12] LABS: HCG Quantitative 68968 mIU/mL
[2024-08-13 15:39] LABS: Alkaline Phosphatase 53 U/L (39-117)
[2024-08-13 15:47] LABS: Salicylate < 5.0 mg/dL (15-30)
--- OUTSIDE RECORDS SUMMARY | 2024-08-13 15:47 | XMS_ITS | Encounter Summary ---
Author Organization [employer] Address [address] [place] [address] Care Team Providers Care Decorating Supervisor Name Role Phone Geovanna Aguilar MD Primary Care Pro vider Reason for Visit * Reason Comments [facility]ination [facility] call outreach Encounter Details Date Type Department Care Team (Latest Contact Info) Description 08/08/2024 Patient Outreach [facility] MEDICINE [address] [place] [address] Geovanna Aguilar MD [address] [place] [address] Care Coordination ([facility] telephone call outreach) Social History Tobacco [...] at this time. LVM introducing herself from [facility] CM Department, reminding patient of appointment on 08/09/2024 @ 1:00PM. Requested call back to or , as well as for any additional questions or concerns. documented in this encounter Plan of Treatment Not on file documented as of this encounter Visit Diagnoses Not on filedocumented in this encounter Care Teams Decorating Supervisor Relationship Specialty Start Date End Date Geovanna Aguilar MD [address] [place] [id number] PCP - General Internal Medicine 03/18/23 documented as of this encounter
--- OUTSIDE RECORDS SUMMARY | 2024-08-13 15:47 | XMS_ITS | Encounter Summary ---
Author Organization [employer] Address [address] [facility] [address] [place] [address] Care Team Providers Care Ceo Na Name Role Phone Geovanna Aguilar MD Primary Care Pro vider Reason for Visit * Reason Comments Care Management C3CM initial assessm ent-unable to lvm Encounter Details Date Type Department Care Team ([facility] st Contact Info) Description 08/09/2024 Telephone [facility] MEDICINE [address] [place] [address] Shoshana Chairez, MIGUEL Care Management (C3CM initial assessment-unable to lvm) Social History Tobacco Use Types Packs/Day Years [...] as of this encounter Progress Notes * Shoshana Chairez - 08/09/2024 1:20 PM EST CM Shoshana Chairez RN placed outbound call to patient for agreed upon assessment time. No answer at this time, left message requesting call back at [phone] or CHW [phone]. CM/CHW will attempt contact with patient to reschedule missed initial assessment. documented in this encounter Plan of Treatment Not on file documented as of this encounter Visit Diagnoses Not on filedocumented in this encounter Care Teams Ceo Na Relationship Specialty Start Date End Date Geovanna Aguilar MD [address] [place] [id number] PCP - General Internal Medicine 03/18/23 documented as of this encounter
--- OUTSIDE RECORDS SUMMARY | 2024-08-13 15:47 | XMS_ITS | Encounter Summary ---
Author Organization [employer] Address 75 [facility] 7t [place] [address] Care Team Providers Care Crew Member Name Role Phone Geovanna Aguilar MD Primary Care Pro vider Encounter Details Date Type Department Care Team (Late st Contact Info) Description 08/08/2024 Orders Only [facility] External Provider, [facility] Social History Tobacco Use Types Packs/Day [...] AND SCREEN Routine 08/08/2024 4:20 PM EST CULTURE, URINE, ROUTINE Routine 08/08/2024 4:20 PM EST HCG, TOTAL, QN Routine 08/08/2024 4:20 PM EST MAGNESIUM Routine 08/08/2024 4:20 PM EST LIPASE Routine 08/08/2024 4:20 PM EST COMPREHENSIVE METABOLIC PANEL Routine 08/08/2024 4:20 PM EST US OB PELVIS TRANSVAGINAL Routine 08/08/2024 2:18 PM EST documented in this encounter Results * Culture, Urine, Routine (08/08/2024 4:20 PM EST) Urine Urine specimen obtained by clean catch procedure / Unknown 08/08/2024 4:20 PM EST 08/08/2024 5:35 PM EST Comment:[facility] - 08/10/2024 8:44 AM EST Urine Culture Report Result Urine Culture 10,000 to 50,000 cfu/ml Urine Culture Mixed bacterial kishore characteristic of Urine Culture urogenital contamination. Specimen Source: Urine clean catch Generic External Data Provider LAB MICROBIOLOGY - GENERAL ORDERABLES Final Result Performing Organization Address [facility] Co de Phone Number [facility] [address] [place] [phone] * Prothrombin Time-INR (08/08/2024 4:20 PM EST) Prothrombin Time 11.9 10.9 - 12.4 SEC [facility] INTERNATIONAL NORM RATIO 1.0 0.9 - 1.1 [facility] Comment:INTERNATIONAL NORMAL IZED RATIO (INR) [...] ORDERAB LES Final Result Performing Organization Address [facility] Phone Number [facility] [address] [place] [phone] * Type and screen (08/08/2024 4:20 PM EST) Blood Type OP [facility] Antibody Screen NEGATIVE [facility] 08/08/2024 4:20 PM EST 08/08/2024 4:28 PM EST Generic External Data Provider LAB BLOOD BANK TE ST ORDERABLES Final Result Performing Organization Address [facility] Co de Phone Number [facility] [address] [place] [address] [phone] * hCG, Total, Quantitative (08/08/2024 4:20 PM EST) HCG Quantitative 30,729 mIU/mL [facility] Comment:Weeks post LMP Appro ximate hCG(Last Menstrual Period) Range (mIU/ml)3 - 4 weeks 9 - 1304 - 5 weeks 75 - 2,6005 - 6 weeks 850 - 20,8006 - 7 weeks 4000 - 100,2007 - 12 weeks 11,500 - 289,09842 - 16 weeks 18,300 - 137,03099 - 29 weeks (2nd trimester) 1,400 - 53,81241 - 41 weeks (3rd trimester) 940 - [...] ORDERAB LES Final Result Performing Organization Address [facility]/ZIP Co de Phone Number [facility] [address] [place] [phone] * Lipase (08/08/2024 4:20 PM EST) Lipase 15 8 - 78 U/L [facility] 08/08/2024 4:20 PM EST 08/08/2024 4:23 PM EST [email or web address] External Data Provider LAB BLOOD ORDERAB LES Final Result Performing Organization Address [facility] Co de Phone Number [facility] [address] [place] [phone] * Magnesium (08/08/2024 4:20 PM EST) Magnesium 1.9 1.6 - 2.6 mg/dL [facility] 08/08/2024 4:20 PM EST 08/08/2024 4:23 PM EST us Generic External Data Provider LAB BLOOD ORDERAB LES Final Result [facility] [address] [place] [address] [phone] * (ABNORMAL) Comprehensive Metabolic Panel (08/08/2024 4:20 PM EST) Sodium 135 135 - 145 mmol/L [facility] Potassium 3.6 3.3 - 5.1 mmol/L [facility] Comment:Slight Hemolysis.Int erpret result with caution. Chloride 109(H) 96 - 108 mmol/L [facility] Carbon Dioxide 21(L) 22 - 29 mmol/L [facility] Anion Gap 9(L) 12 - 20 [facility] Urea Nitrogen (BUN) 12 9 - 16 mg/dL [facility] Creatinine, Serum 0.99 0.5 - 1.4 mg/dL [facility] Creatinine Clr Calc Pharmacy 107.5 [facility] Comment:Provided height and weight: 160.02 cm,114.2 kg.eGFR (calculated from the MDRD study equation) and eCrCl(calculated from the Cockcroft-Gault equation) are based ondifferent parameters and may not yield comparable results.If eCrCl result is absurd, please check patient'sheight/weight. Estimated Glomerular Filt Rate >60 [facility] Comment:Chronic Kidney Disea se: Estimated GFR < 60 mL/min/1.29z3Ahdpkm Kidney Disease: Estimated GFR < 15 mL/min/1.73m2 Glucose 91 60 - 115 mg/dL [facility] Calcium 8.4 8.4 - 10.2 mg/dL [facility] Bilirubin, Total 0.1 0.0 - 1.0 mg/dL [facility] Aspartate Amino Transferase 22 5 - 31 U/L [facility] Comment:Slight Hemolysis.Int erpret result with caution. Alanine Aminotransferase 18 0 - 31 U/L [facility] Total Protein 7.0 6.5 - 8.0 g/dL [facility] Albumin Level 3.6 3.5 - 5.0 g/dL [facility] Alkaline Phosphatase 54 39 - 117 U/L [facility] 08/08/2024 4:20 PM EST 08/08/2024 4:23 PM EST us Generic External Data Provider LAB BLOOD ORDERAB LES Final Result Performing Organization Address [facility]/ZIP Co de Phone Number [facility] [address] [place] [phone] * (ABNORMAL) Urinalysis, Complete, with Reflex to Culture (08/08/2024 4:20 PM EST) Color Urine Yellow [facility] Appearance Urine Clear [facility] PH 6.5 5.0 - 9.0 [facility] Glucose Urine UA Negative Negative mg/dL [facility] Urine Blood Moderate (2+)(A) Negative [facility] Specific [place] - Urine >=1.030(H) 1.005 - 1.025 [facility] Urine Protein Trace Neg-Trace mg/dL [facility] Urine Ketones Trace Negative mg/dL [facility] Nitrite Urine Negative Negative [facility] Leukocyte Esterase Urine Small (1+)(A) Negative [facility] RBC Urine 0-2 0 - 2 /HPF [facility] Urine WBC 0-5 0 - 5 /HPF [facility] Urine Squamous Epithelial Cell 6-10 0 - 2 /HPF [facility] Urine Bacteria None Seen None Seen [facility] Hyaline Casts, Urine 0-2 0 - 2 /LPF [facility] 08/08/2024 4:20 PM EST 08/08/2024 4:23 PM EST Narrative [facility] - 08/08/2024 5:04 PM EST [id number], Clean Catch us Generic External Data Provider LAB URINE ORDERAB LES Final Result Performing Organization Address [facility]/State/ZIP Co de Phone Number [facility] [address] [place] [phone] * (ABNORMAL) HCG, Qualitative, Urine (08/08/2024 4:20 PM EST) Pathologist [facility] Urine POSITIVE(A ) NEGATIVE [facility] 08/08/2024 4:20 PM EST 08/08/2024 4:23 PM EST Generic External Data Provider LAB URINE ORDERAB LES Final Result [facility] [address] [place] [phone] * (ABNORMAL) CBC auto differential (08/08/2024 4:20 PM EST) [facility] White Blood Count 9.0 4.8 - 10.8 X10*3/uL [facility] Red Blood Count 4.24 4.20 - 5.50 X10*6/uL [facility] Hemoglobin 12.7 12.0 - 16.0 g/dl [facility] Hematocrit 37.0 37.0 - 47.0 % [facility] Mean Corpuscular Volume 87.3 80.0 - 98.0 fL [facility] Mean Corpuscular Hemoglobin 30.0 27.0 - 33.0 pg [facility] Mean Corpuscular HGB Conc 34.3 31.0 - 35.0 g/dl [facility] Red Cell Distribution Width 12.9 11.0 - 16.0 % [facility] Platelet Count 206 160 - 400 X10*3/uL [facility] Mean Platelet Volume 11.3 9.4 - 12.3 fL [facility] Neutrophils Percent Auto 75.8(H) 45 - 73 % [facility] Imm Gran Pct Auto 0.2 0.0 - 0.4 % [facility] Lymphocytes Percent Auto 17.8(L) 20 - 40 % [facility] Monocytes Percent Auto 4.7 2 - 11 % [facility] Eosinophils Percent Auto 1.1 0 - 4 % [facility] Basophils Percent Auto 0.4 0 - 2 % [facility] NRBC Pct Auto 0.0 0.0 - 0.2 /100WBC [facility] Neutrophils Absolute Auto 6.8 2.0 - 8.3 x10*3/uL [facility] Imm Gran Abs Auto 0.02 0.00 - 0.03 X10*3/uL [facility] Lymphocytes Absolute Auto 1.6 1.2 - 4.9 X10*3/uL [facility] Monocytes Absolute Auto 0.4 0.1 - 1.2 X10*3/uL [facility] Eosinophils Absolute Auto 0.1 0.0 - 0.4 X10*3/uL [facility] Basophils Absolute Auto 0.0 0.0 - 0.2 X10*3/uL [facility] NRBC Abs Auto 0.000 0.0 - 0.012 X10*3/uL [facility] 08/08/2024 4:20 PM EST 08/08/2024 4:23 PM EST us Generic External Data Provider LAB BLOOD ORDERAB LES Final Result Performing Organization Address City/State/[facility] Co de Phone Number [facility] [address] [place] [phone] * US OB Pelvis with Transvaginal (08/08/2024 2:18 PM EST) Anatomical Region Laterality Modality Pelvis Ultrasound 08/08/2024 2:18 PM EST Narrative 08/08/2024 3:02 PM EST ? [facility] ?[address] [place] [address] ?[place] [address] ? Ultrasound Report ? Signed ? Patient: Brito,Guarionis B ?MR#: [id number] ?? [id number] ? : 2000 ?Acct:[id number] ? Age/Sex: 24 / F ?ADM Date: 01/29/25 ? Loc: HO.ED ? Attending Dr: ? Ordering Physician: Irene Hector ?? Date of Service: 08/08/24 ?? Procedure(s): US OB pelvic and transvaginal ?? Accession Number(s): [id number] ? cc: Velma Carlton MD; Irene Hector [...] ??Juan Gay MD ??08/08/2024 02:59 PM ?? EST RP ? Dictated By: ?Juan Hernandez MD ? Signed By: ?<Electronically signed by Juan Clay MD in OV> ? 08/08/24 1459 ? DD/ 1418 ? TD/TT: 08/08/24 1433 ? Supervisor Paper Coating: ? Procedure Note Heide, Image - 01/29/[address] [address] Ultrasound Report Signed Patient: Jeremy Brito BMR#: [id number] : 2000Acct:[id number] Age/Sex: 24 FADM Date: 08/08/24 Loc: HO.ED Attending Dr: Ordering Physician: Irene Hector Date of Service: 08/08/24 Procedure(s): US OB pelvic and transvaginal Accession Number(s): [id number] cc: Velma Carlton MD; Irene Hector EXAMINATION: [...] 08/08/24 1459 DD/ 1418 TD/TT: 08/08/24 1433 Supervisor Paper Coating: [facility] External Provider IMG US PROCEDURES Edited Result - Final documented in this encounter Visit Diagnoses Not on filedocumented in this encounter Care Teams Crew Member Relationship Specialty Start Date End Date Geovanna Aguilar MD [address] [place] [phone] PCP - General Internal Medicine 03/18/23 documented as of this encounter
--- OUTSIDE RECORDS SUMMARY | 2024-08-13 15:47 | XMS_ITS | Encounter Summary ---
Author Organization [employer] Address 75 [facility] [address] [place] [address] Care Team Providers Care Janitor Supervisor Name Role Phone Geovanna Aguilar MD Primary Care Pro vider Reason for Visit * Reason Comments Care Coordination C3 -LINDA baker telephone call outreach Encounter Details Date Type Department Care Team (Latest Contact Info) Description 07/24/2024 Patient Outreach [facility] [address] [place] [address] Geovanna Aguilar MD [address] [place] [address] Care Coordination (C3 -LINDA Acuña telephone call [...] outbound call to patient introducing herself from [facility] CM Department, in regards to offering [...] Wednesdays, and Walk-In Urgent Care Located in [facility].Patient provided with after-hours line for [facility], , which offer night time triage serviceand option to transfer to alternative dispute resolution mediator provider if needed. Patient verbalizes understanding, and able torepeat back to lead technical writer. documented in this encounter Plan of Treatment Not on file documented as of this encounter Visit Diagnoses Not on filedocumented in this encounter Care Teams Janitor Supervisor Relationship Specialty Start Date End Date Geovanna Aguilar MD [address] [place] [phone] PCP - General Internal Medicine 03/18/23 documented as of this encounter
--- OUTSIDE RECORDS SUMMARY | 2024-08-13 15:47 | XMS_ITS | Encounter Summary ---
Author Organization [employer] Address 75 [facility] 7t [place] [address] Care Team Providers Care Shearing Supervisor Name Role Phone Geovanna Aguilar MD Primary Care Pro vider Reason for Visit * Reason Onset Date Comments Care Management 07/24/2024 C3- chart revi ew Encounter Details Date Type Department Care Team ([facility] st Contact Info) Description 07/24/2024 Telephone [facility] MEDICINE [address] [place] [address] Albertina Marcos, MIGUEL [address] [place] [address] Care Management (C3CM- chart review) Social History [...] intermittent explosive disorder, and PTSD. Specialists include [facility] Dental. ED visits within the last 12 months include [facility] 07/23/24 [facility] 06/24/24, [facility] 05/20/24, [facility] 04/20/24. Last appointment in PCP office on 08/02/22- RN visit for immunization. Multiple noshow visits on file including no show- TP appt on 10/13/22. No future appointments scheduled at this time. Will need TP appt. documented in this encounter Plan of Treatment Not on file documented as of this encounter Visit Diagnoses Not on filedocumented in this encounter Care Teams Shearing Supervisor Relationship Specialty Start Date End Date Geovanna Aguilar MD [address] [place] [phone] PCP - General Internal Medicine 03/18/23 documented as of this encounter
--- OUTSIDE RECORDS SUMMARY | 2024-08-13 15:47 | XMS_ITS | Encounter Summary ---
Author Organization [employer] Address [address] [facility] [address]t [place] [address] Care Team Providers Care Senior Production Planner Name Role Phone Geovanna Aguilar MD Primary Care Pro vider Encounter Details Date Type Department Care Team ([facility] st Contact Info) Description 07/24/2024 Patient Outreach [facility] [address] [place] [address] Geovanna Aguilar MD [address] [place] [address] Social History Tobacco Use Types Packs/Day Years [...] on filedocumented in this encounter Care Teams Senior Production Planner Relationship Specialty Start Date End Date Geovanna Aguilar MD [address] [place] [phone] PCP - General Internal Medicine 03/18/23 documented as of this encounter
--- OUTSIDE RECORDS SUMMARY | 2024-08-13 15:47 | XMS_ITS | Encounter Summary ---
Author Organization [employer] Address [address] [facility] [address] [place] [address] Care Team Providers Care Air Cargo Specialist Name Role Phone Geovanna Aguilar MD Primary Care Pro vider Reason for Visit * Reason Onset Date Comments ER Follow-up 08/02/2024 Encounter Details Date Type Department Care Team ([facility] st Contact Info) Description 08/02/2024 Telephone [facility] MEDICINE [address] [place] [address] Annelise Clay, MIGUEL [address] [place] [address] ER Follow-up Social History Tobacco Use Types [...] encounter Miscellaneous Notes * Telephone Encounter - Stephanie Moeller RN - 08/13/2024 11:08 AM EST TC placed to [facility] and left a detailed message to call back [facility] in regards to pt scheduled OBGYN appt with Dr. Cordova on 08/10/2024 * Telephone Encounter - Annelise Clay RN - 08/11/2024 11:27 AM EST Pt seen at [facility]. Made an appt with Art 08/10 but it doesn't look like she went. Will check again Tuesday * Telephone Encounter - Annelise Clay RN - 08/07/2024 10:49 AM EST Pt went to [facility] 08/05/24. Once again, left AMA. Telephone call [...] appt is with, thinks it might be [facility] but isn't certain. Telephone call placed to [facility] who stated does not have any appts upcoming at any [facility] office including OBGYN. Telephone call placed to [facility] who also does not have any scheduled visits with pt. Please outreach pt for triage - left ED w/o being seen. Per ED note, pt w/ home test, with vaginal bleeding. documented in this encounter Plan of Treatment Not on file documented as of this encounter Visit Diagnoses Not on filedocumented in this encounter Care Teams Air Cargo Specialist Relationship Specialty Start Date End Date Geovanna Aguilar MD [address] [place] [phone] PCP - General Internal Medicine 03/18/23 documented as of this encounter
--- OUTSIDE RECORDS SUMMARY | 2024-08-13 15:47 | XMS_ITS | Encounter Summary ---
Author Organization [facility] Address [address] [facility] [address] [place] [address] Care Team Providers Care Lead Accountant Name Role Phone Geovanna Aguilar MD Primary Care Pro vider Encounter Details Date Type Department Care Team (Late st Contact Info) Description 08/13/2024 Orders Only GENERIC EXTERNAL DATA DEPARTMENT Provider, Generic External Data Social History Tobacco Use Types Packs/Day Years [...] Procedure Name Priority Date/Time Associated Diagnosis Comments ETHANOL Routine 08/13/2024 2:07 PM EST SST GOLD TOP TO HOLD Routine 08/13/2024 2:07 PM EST CBC WITH AUTO DIFFERENTIAL Routine 08/13/2024 2:07 PM EST HCG, TOTAL, QN Routine 08/13/2024 2:07 PM EST COMPREHENSIVE METABOLIC PANEL Routine 08/13/2024 2:07 PM EST documented in this encounter Results * hCG, Total, Quantitative (08/13/2024 2:07 PM EST) HCG Quantitative 68,968 mIU/mL [facility] Comment:Weeks post LMP Appro ximate hCG(Last Menstrual Period) Range (mIU/ml)3 - 4 weeks 9 - 1304 - 5 weeks 75 - 2,6005 - 6 weeks 850 - 20,8006 - 7 weeks 4000 - 100,2007 - 12 weeks 11,500 - 289,21392 - 16 weeks 18,300 - 137,12083 - 29 weeks (2nd trimester) 1,400 - 53,78794 - 41 weeks (3rd trimester) 940 - 60,000The Vazquez B- hCG assay is used for the early detection ofpregnancy; it cannot be used to diagnose any conditionunrelated to . If a B-hCG level is not supportedby the clinical evidence, results should be confirmed by analternative method (qualitative urine hCG, for example). 08/13/2024 2:07 PM EST 08/13/2024 2:11 PM EST Narrative [facility] - 08/13/2024 3:39 PM EST pt refuses us Generic External Data Provider LAB BLOOD ORDERAB LES Final Result Performing Organization Address [facility] [address]/ZIP Co de Phone Number [facility] [address] [place] [address] [phone] * Ethanol (08/13/2024 2:07 PM EST) ETHANOL (MG/DL) IN SER/PLAS <10 mg/dL [facility] Comment:Serum/plasma ethanol results are to be used formedical/treatment purposes only. 08/13/2024 2:07 PM EST 08/13/2024 2:11 PM EST Narrative [facility] - 08/13/2024 3:39 PM EST pt refuses us Generic External Data Provider LAB BLOOD ORDERAB LES Final Result Performing Organization Address [facility] [address]/[facility] Co de Phone Number [facility] [address] [place] [address] [phone] * (ABNORMAL) Comprehensive Metabolic Panel (08/13/2024 2:07 PM EST) Sodium 135 135 - 145 mmol/L [facility] Potassium 3.6 3.3 - 5.1 mmol/L [facility] Chloride 107 96 - 108 mmol/L [facility] Carbon Dioxide 17(L) 22 - 29 mmol/L [facility] Anion Gap 15 12 - 20 [facility] Urea Nitrogen (BUN) 5(L) 9 - 16 mg/dL [facility] Creatinine, Serum 0.61 0.5 - 1.4 mg/dL [facility] Creatinine Clr Calc Pharmacy 170.9 [facility] Comment:Provided height and weight: 167.64 cm,99.79 kg.eGFR (calculated from the MDRD study equation) and eCrCl(calculated from the Cockcroft-Gault equation) are based ondifferent parameters and may not yield comparable results.If eCrCl result is absurd, please check patient'sheight/weight. Estimated Glomerular Filt Rate >60 [facility] Comment:Chronic Kidney Disea se: Estimated GFR < 60 mL/min/1.92u6Uzhgra Kidney Disease: Estimated GFR < 15 mL/min/1.73m2 Glucose 81 60 - 115 mg/dL [facility] Calcium 9.1 8.4 - 10.2 mg/dL [facility] Bilirubin, Total 0.3 0.0 - 1.0 mg/dL [facility] Aspartate Amino Transferase 19 5 - 31 U/L [facility] Alanine Aminotransferase 11 0 - 31 U/L [facility] Total Protein 7.2 6.5 - 8.0 g/dL [facility] Albumin Level 3.6 3.5 - 5.0 g/dL [facility] Alkaline Phosphatase 53 39 - 117 U/L [facility] 08/13/2024 2:07 PM EST 08/13/2024 2:11 PM EST Narrative [facility] - 08/13/2024 3:39 PM EST pt refuses us Generic External Data Provider LAB BLOOD ORDERAB LES Final Result [facility] [address] [place] [phone] * (ABNORMAL) CBC auto differential (08/13/2024 2:07 PM EST) White Blood Count 4.4(L) 4.8 - 10.8 X10*3/uL [facility] Red Blood Count 4.64 4.20 - 5.50 X10*6/uL [facility] Hemoglobin 13.7 12.0 - 16.0 g/dl [facility] Hematocrit 40.8 37.0 - 47.0 % [facility] Mean Corpuscular Volume 87.9 80.0 - 98.0 fL [facility] Mean Corpuscular Hemoglobin 29.5 27.0 - 33.0 pg [facility] Mean Corpuscular HGB Conc 33.6 31.0 - 35.0 g/dl [facility] Red Cell Distribution Width 12.7 11.0 - 16.0 % [facility] Platelet Count 195 160 - 400 X10*3/uL [facility] Mean Platelet Volume 11.5 9.4 - 12.3 fL [facility] Neutrophils Percent Auto 83.8(H) 45 - 73 % [facility] Imm Gran Pct Auto 0.2 0.0 - 0.4 % [facility] Lymphocytes Percent Auto 6.2(L) 20 - 40 % [facility] Monocytes Percent Auto 8.0 2 - 11 % [facility] Eosinophils Percent Auto 0.9 0 - 4 % [facility] Basophils Percent Auto 0.9 0 - 2 % [facility] NRBC Pct Auto 0.0 0.0 - 0.2 /100WBC [facility] Neutrophils Absolute Auto 3.6 2.0 - 8.3 x10*3/uL [facility] Imm Gran Abs Auto 0.01 0.00 - 0.03 X10*3/uL [facility] Lymphocytes Absolute Auto 0.3(L) 1.2 - 4.9 X10*3/uL [facility] Monocytes Absolute Auto 0.4 0.1 - 1.2 X10*3/uL [facility] Eosinophils Absolute Auto 0.0 0.0 - 0.4 X10*3/uL [facility] Basophils Absolute Auto 0.0 0.0 - 0.2 X10*3/uL [facility] NRBC Abs Auto 0.000 0.0 - 0.012 X10*3/uL [facility] 08/13/2024 2:07 PM EST 08/13/2024 2:11 PM EST Narrative [facility] - 08/13/2024 2:18 PM EST pt refuses us Generic External Data Provider LAB BLOOD ORDERAB LES Final Result [facility] [address] [place] [address] [phone] * SST GOLD TOP TO HOLD (08/13/2024 2:07 PM EST) Hold Gold See Note [facility] Comment:Specimen held untest ed for 24 hours; Call to requestChemistry testing. 08/13/2024 2:07 PM EST 08/13/2024 2:12 PM EST us Generic External Data Provider LAB BLOOD ORDERAB LES Final Result [facility] [address] [place] [address] [phone] documented in this encounter Visit Diagnoses Not on filedocumented in this encounter Care Teams Lead Accountant Relationship Specialty Start Date End Date Geovanna Aguilar MD [address] [place] [address] PCP - General Internal Medicine 03/18/23 documented as of this encounter
--- OUTSIDE RECORDS SUMMARY | 2024-08-13 15:47 | XMS_ITS | Clinical Summary ---
Author Organization [employer] Address [address] [facility] [address] [place] [address] Care Team Providers Care Survey Coordinator Name Role Phone Geovanna Aguilar MD Primary Care Pro vider Allergies Active Allergy Reactions Criticality Noted Date Comments Amoxicillin Unknown Other reaction(s): rash Penicillin G 08/08/2015 Other reaction(s): Unknown Active Problems Problem Noted Date Diagnosed Date Weight gain 12/23/2022 Anemia 10/12/2022 Routine adult health maintenance 10/12/2022 Morbid obesity 05/14/2016 Posttraumatic stress disorder 12/25/2014 Intermittent explosive disorder 10/10/2014 Encounters Date Type Department Care Team Description 08/13/2024 Orders Only GENERIC EXTERNAL DATA DEPARTMENT Provider, Generic External Data 08/09/2024 Telephone [facility] [address] [place] [phone] Shoshana Chairez RN Care Management (C3CM initial assessment-unable to lvm) 08/08/2024 Orders Only [facility] External Provider, [facility] 08/08/2024 Patient Outreach [facility] [address] [place] [phone] Geovanna Aguilar MD Care Coordination (C3 CM-[facility] Micki Acuña telephone call outreach) 08/02/2024 Telephone [facility] [address] [place] [address] Annelise Clay RN ER Follow-up 07/24/2024 Patient Outreach [facility] [address] [place] [address] [phone] Geovanna Aguilar MD Care Coordination (C3 -[facility] Micki Acuña telephone call outreach) 07/24/2024 Patient Outreach [facility] [address] [place] [address] Geovanna Aguilar MD 07/24/2024 Telephone [facility] [address] [place] [address] Albertina Marcos, RN Care Management (C3CM- chart review) from Last 3 Months Immunizations Name Administration Dates Next Due DTaP 01/17/2006, 4,03/15/2002,05/02 HPV, Quadrivalent 12/13/2013,07/31/2013,10/06/19 13 Hep A, ped/adol, 2 dose 11/26/2016,10/10/2015 Hep B, Adolescent or Pediatric 08/13/2002,2001,2001 Hib (HbOC) 08/13/2002,2001,2001 IPV 01/18/2006, 4,03/25/2002,05/02 Influenza injectable quadriv alent preservative free 04/16/2019,10/10/2015,09/04/2014 Influenza, IIV3, injectable 04/06/2007 Influenza, Split (incl. cirilo fied surface antigen) 07/31/2013,07/25/2012 MMR 01/17/2006,03/15/2002 Meningococcal MCV4P ACYW-135 10/05/2012 Pfizer Covid-19 Vaccine 12+ 08/02/2022 Tdap 02/02/2019,10/05/2012 Varicella 10/05/2012,01/17/2006 Social History Tobacco Use Types Packs/Day Years [...] Orientation Straight 05/10/2022 10 :18 AM EDT Last Filed Vital Signs Vital Sign Reading Time Taken Comments Blood Pressure 120/62 08/04/2021 12:01 AM EST Pulse 60 08/04/2021 12:01 AM EST Temperature - - Respiratory Rate - - Oxygen Saturation - - Inhaled Oxygen Concentration - - Weight 96.3 kg (212 lb 3.2 oz) 08/04/2021 12:01 AM EST Height 158.4 cm (5' 2.38 ) 08/04/2021 12:[address] Body Mass Index 38.34 08/04/2021 12:01 AM EST Plan of Treatment Health Maintenance Due Date Last Done Comments Depression Screening 2001 Lipid Panel 2001 Alcohol/Substance Use Screening 2013 Tobacco Screening 2013 Family Planning (PISQ) 2016 COVID-19 Vaccine ( season) 2024 08/02/2022, 09/09/2021 Influenza Vaccine (#1) 2024 9, 10/10/2015, 09/04/2014, Additional history exists Chlamydia and Gonorrhea Screening 06/24/2025 06/24/2024, 07/30/2022 SDOH Screening 07/24/2025 07/24/2024 Pap Smear 07/30/2025 07/30/2022 DTaP/Tdap/Td Vaccines (7 - Td or Tdap) 02/02/2029 02/02/2019, 10/05/2012, 01/17/2006, Additional history exists Zoster Vaccines (1 of 2) 2051 RSV Patients and Patients Aged 60 years or older (1 - 1-dose 75+ series) 2076 HIB Vaccines Completed 08/13/2002, 10/2001, 2001 Hepatitis B Vaccines Completed 08/13/2002, 2001, 2001 IPV Vaccines Completed 01/18/2006, 07/11, 03/25/2002, Additional history exists Meningococcal Vaccine Aged Out 10/05/2012 No annika chely eligible based on patient's age to complete this topic HPV Vaccines Completed 12/13/2013, 07/12, 10/05/2012 Hepatitis A Vaccines Completed 11/26/2016, 10/10/19 16 HIV Screening Completed 04/02/2021 Hepatitis C Screening Completed 04/02/2021 Pneumococcal Vaccine: Pediatrics (0 to 5 Years) and At-Risk Patients (6 to 49) Years) Aged Out No longer eligible based on patient's age to complete this topic RSV under 20 months Aged Out No longe r eligible based on patient's age to complete this topic Rotavirus Vaccines Aged Out No longer eligible based on patient's age to complete this topic Procedures Procedure Name Priority Date/Time Associated Diagnosis Comments HCG, TOTAL, QN Routine 08/13/2024 2:07 PM EST ETHANOL Routine 08/13/2024 2:07 PM EST COMPREHENSIVE METABOLIC PANEL Routine 08/13/2024 2:07 PM EST CBC WITH AUTO DIFFERENTIAL Routine 08/13/2024 2:07 PM EST SST GOLD TOP TO HOLD Routine 08/13/2024 2:07 PM EST PROTHROMBIN TIME-INR Routine 08/08/2024 4:20 PM EST TYPE AND SCREEN Routine 08/08/2024 4:20 PM EST HCG, TOTAL, QN Routine 08/08/2024 4:20 PM EST LIPASE Routine 08/08/2024 4:20 PM EST MAGNESIUM Routine 08/08/2024 4:20 PM EST COMPREHENSIVE METABOLIC PANEL Routine 08/08/2024 4:20 PM EST URINALYSIS, COMPLETE, WITH REFLEX TO CULTURE Routine 08/08/2024 4:20 PM EST HCG, QL, URINE Routine 08/08/2024 4:20 PM EST CBC WITH AUTO DIFFERENTIAL Routine 08/08/2024 4:20 PM EST CULTURE, URINE, ROUTINE Routine 08/08/2024 4:20 PM EST US OB PELVIS TRANSVAGINAL Routine 08/08/2024 2:18 PM EST CULTURE, URINE, ROUTINE Routine 07/23/2024 7:28 PM EST URINALYSIS, COMPLETE, WITH REFLEX TO CULTURE Routine 07/23/2024 7:13 PM EST HCG, TOTAL, QN Routine 07/23/2024 4:15 PM EST COMPREHENSIVE METABOLIC PANEL Routine 07/23/2024 4:15 PM EST ABO GROUP AND RH TYPE Routine 07/23/2024 4:15 PM EST PROTHROMBIN TIME-INR Routine 07/23/2024 4:15 PM EST CBC WITH AUTO DIFFERENTIAL Routine 07/23/2024 4:15 PM EST HCG, QL, URINE Routine 06/24/2024 5:16 PM EST URINALYSIS, COMPLETE, WITH REFLEX TO CULTURE Routine 06/24/2024 5:16 PM EST HCG, TOTAL, QN Routine 06/24/2024 4:37 PM EST LIPASE Routine 06/24/2024 4:37 PM EST MAGNESIUM Routine 06/24/2024 4:37 PM EST COMPREHENSIVE METABOLIC PANEL Routine 06/24/2024 4:37 PM EST CBC WITH AUTO DIFFERENTIAL Routine 06/24/2024 3:27 PM EST SARS COV2/INFLUENZA A/B AND RSV RNA QL NAAT Routine 06/24/2024 3:27 PM EST BACTERIAL VAGINOSIS PANEL Routine 06/24/2024 3:12 PM EST CHLAMYDIA/N. GONORRHOEAE RNA, TMA, UROGENITAL Routine 06/24/2024 3:12 PM EST WET PREP, GENITAL Routine 06/24/2024 3:1 2 PM EST PAP SMEAR Routine 07/30/2022 11:32 AM EST ZZZ HISTORICAL HIV AB/AG Routine 04/02/2021 12:38 PM EDT from Last 3 Months or Most Recently Relevant to Health Maintenance Results * Ethanol (08/13/2024 2:07 PM EST) ETHANOL (MG/DL) IN SER/PLAS <10 mg/dL [facility] Comment:Serum/plasma ethanol results are to be used formedical/treatment purposes only. 08/13/2024 2:07 PM EST 08/13/2024 2:11 PM EST Narrative [facility] - 08/13/2024 3:39 PM EST pt refuses us Generic External Data Provider LAB BLOOD ORDERAB LES Final Result Performing Organization Address City/[facility]/ZIP Co de Phone Number [facility] [address] [place] [address] [phone] * SST GOLD TOP TO HOLD (08/13/2024 2:07 PM EST) Pathologist [facility] Hold Gold See Note [facility] Comment:Specimen held untest ed for 24 hours; Call to requestChemistry testing. 08/13/2024 2:07 PM EST 08/13/2024 2:12 PM EST Generic External Data Provider LAB BLOOD ORDERAB LES Final Result Performing Organization Address [facility]/ZIP Co de Phone Number [facility] [address] [place] [address] [phone] * (ABNORMAL) CBC auto differential (08/13/2024 2:07 PM EST) Only the most recent of4 resultswithin the time period is included. [facility] White Blood Count 4.4(L) 4.8 - 10.8 X10*3/uL [facility] Red Blood Count 4.64 4.20 - 5.50 X10*6/uL [facility] Hemoglobin 13.7 12.0 - 16.0 g/dl [facility] Hematocrit 40.8 37.0 - 47.0 % [facility] Mean Corpuscular Volume 87.9 80.0 - 98.0 fL [facility] Mean Corpuscular Hemoglobin 29.5 27.0 - 33.0 pg [facility] Mean Corpuscular HGB Conc 33.6 31.0 - 35.0 g/dl [facility] Red Cell Distribution Width 12.7 11.0 - 16.0 % [facility] Platelet Count 195 160 - 400 X10*3/uL [facility] Mean Platelet Volume 11.5 9.4 - 12.3 fL [facility] Neutrophils Percent Auto 83.8(H) 45 - 73 % [facility] Imm Gran Pct Auto 0.2 0.0 - 0.4 % [facility] Lymphocytes Percent Auto 6.2(L) 20 - 40 % [facility] Monocytes Percent Auto 8.0 2 - 11 % [facility] Eosinophils Percent Auto 0.9 0 - 4 % [facility] Basophils Percent Auto 0.9 0 - 2 % [facility] NRBC Pct Auto 0.0 0.0 - 0.2 /100WBC [facility] Neutrophils Absolute Auto 3.6 2.0 - 8.3 x10*3/uL [facility] Imm Gran Abs Auto 0.01 0.00 - 0.03 X10*3/uL [facility] Lymphocytes Absolute Auto 0.3(L) 1.2 - 4.9 X10*3/uL [facility] Monocytes Absolute Auto 0.4 0.1 - 1.2 X10*3/uL [facility] Eosinophils Absolute Auto 0.0 0.0 - 0.4 X10*3/uL [facility] Basophils Absolute Auto 0.0 0.0 - 0.2 X10*3/uL [facility] NRBC Abs Auto 0.000 0.0 - 0.012 X10*3/uL [facility] 08/13/2024 2:07 PM EST 08/13/2024 2:11 PM EST Narrative [facility] - 08/13/2024 2:18 PM EST pt refuses us Generic External Data Provider LAB BLOOD ORDERAB LES Final Result [facility] [address] [place] [phone] * hCG, Total, Quantitative (08/13/2024 2:07 PM EST) Only the most recent of4 resultswithin the time period is included. HCG Quantitative 68,968 mIU/mL [facility] Comment:Weeks post LMP Appro ximate hCG(Last Menstrual Period) Range (mIU/ml)3 - 4 weeks 9 - 1304 - 5 weeks 75 - 2,6005 - 6 weeks 850 - 20,8006 - 7 weeks 4000 - 100,2007 - 12 weeks 11,500 - 289,76377 - 16 weeks 18,300 - 137,29181 - 29 weeks (2nd trimester) 1,400 - 53,12422 - 41 weeks (3rd trimester) 940 - 60,000The Vazquez B- hCG assay is used for the early detection ofpregnancy; it cannot be used to diagnose any conditionunrelated to . If a B-hCG level is not supportedby the clinical evidence, results should be confirmed by analternative method (qualitative urine hCG, for example). 08/13/2024 2:07 PM EST 08/13/2024 2:11 PM EST Narrative [facility] - 08/13/2024 3:39 PM EST pt refuses us Generic External Data Provider LAB BLOOD ORDERAB LES Final Result [facility] [address] [place] [phone] * (ABNORMAL) Comprehensive Metabolic Panel (08/13/2024 2:07 PM EST) Only the most recent of4 resultswithin the time period is included. Sodium 135 135 - 145 mmol/L [facility] Potassium 3.6 3.3 - 5.1 mmol/L [facility] Chloride 107 96 - 108 mmol/L [facility] Carbon Dioxide 17(L) 22 - 29 mmol/L [facility] Anion Gap 15 12 - 20 [facility] Urea Nitrogen (BUN) 5(L) 9 - 16 mg/dL [facility] Creatinine, Serum 0.61 0.5 - 1.4 mg/dL [facility] Creatinine Clr Calc Pharmacy 170.9 [facility] Comment:Provided height and weight: 167.64 cm,99.79 kg.eGFR (calculated from the MDRD study equation) and eCrCl(calculated from the Cockcroft-Gault equation) are based ondifferent parameters and may not yield comparable results.If eCrCl result is absurd, please check patient'sheight/weight. Estimated Glomerular Filt Rate >60 [facility] Comment:Chronic Kidney Disea se: Estimated GFR < 60 mL/min/1.89r2Sestyp Kidney Disease: Estimated GFR < 15 mL/min/1.73m2 Glucose 81 60 - 115 mg/dL [facility] Calcium 9.1 8.4 - 10.2 mg/dL [facility] Bilirubin, Total 0.3 0.0 - 1.0 mg/dL [facility] Aspartate Amino Transferase 19 5 - 31 U/L [facility] Alanine Aminotransferase 11 0 - 31 U/L [facility] Total Protein 7.2 6.5 - 8.0 g/dL [facility] Albumin Level 3.6 3.5 - 5.0 g/dL [facility] Alkaline Phosphatase 53 39 - 117 U/L [facility] 08/13/2024 2:07 PM EST 08/13/2024 2:11 PM EST Narrative [facility] - 08/13/2024 3:39 PM EST pt refuses us Generic External Data Provider LAB BLOOD ORDERAB LES Final Result [facility] [address] [place] [phone] * (ABNORMAL) Urinalysis, Complete, with Reflex to Culture (08/08/2024 4:20 PM EST) Only the most recent of3 resultswithin the time period is included. Color Urine Yellow [facility] Appearance Urine Clear [facility] PH 6.5 5.0 - 9.0 [facility] Glucose Urine UA Negative Negative mg/dL [facility] Urine Blood Moderate (2+)(A) Negative [facility] Specific Mullin - Urine >=1.030(H) 1.005 - 1.025 [facility] Urine Protein Trace Neg-Trace mg/dL [facility] Urine Ketones Trace Negative mg/dL [facility] Nitrite Urine Negative Negative [facility] Leukocyte Esterase Urine Small (1+)(A) Negative [facility] RBC Urine 0-2 0 - 2 /HPF [facility] Urine WBC 0-5 0 - 5 /HPF [facility] Urine Squamous Epithelial Cell 6-10 0 - 2 /HPF [facility] Urine Bacteria None Seen None Seen [facility] Hyaline Casts, Urine 0-2 0 - 2 /LPF [facility] 08/08/2024 4:20 PM EST 08/08/2024 4:23 PM EST Narrative [facility] - 08/08/2024 5:04 PM EST [id number], Clean Catch Generic External Data Provider LAB URINE ORDERAB LES Final Result Performing Organization Address [facility] de Phone Number [facility] [address] [place] [phone] * (ABNORMAL) HCG, Qualitative, Urine (08/08/2024 4:20 PM EST) Only the most recent of2 resultswithin the time period is included. Urine POSITIVE(A ) NEGATIVE [facility] 08/08/2024 4:20 PM EST 08/08/2024 4:23 PM EST Generic External Data Provider LAB URINE ORDERAB LES Final Result Performing Organization Address [facility] de Phone Number [facility] [address] [place] [phone] * Prothrombin Time-INR (08/08/2024 4:20 PM EST) Only the most recent of2 resultswithin the time period is included. Prothrombin Time 11.9 10.9 - 12.4 SEC [facility] INTERNATIONAL NORM RATIO 1.0 0.9 - 1.1 [facility] Comment:INTERNATIONAL NORMAL IZED RATIO (INR) [...] ORDERAB LES Final Result Performing Organization Address City/[facility]/ZIP Co de Phone Number [facility] [address] [place] [phone] * Type and screen (08/08/2024 4:20 PM EST) Blood Type OP [facility] Antibody Screen NEGATIVE [facility] 08/08/2024 4:20 PM EST 08/08/2024 4:28 PM EST Generic External Data Provider LAB BLOOD BANK TE ST ORDERABLES Final Result Performing Organization Address [facility] de Phone Number [facility] [address] [place] [phone] * Culture, Urine, Routine (08/08/2024 4:20 PM EST) Only the most recent of2 resultswithin the time period is included. Urine Urine specimen obtained by clean catch procedure / Unknown 08/08/2024 4:20 PM EST 08/08/2024 5:35 PM EST Comment:UACC Narrative [facility] - 08/10/2024 8:44 AM EST Urine Culture Report Result Urine Culture 10,000 to 50,000 cfu/ml Urine Culture Mixed bacterial kishore characteristic of Urine Culture urogenital contamination. Specimen Source: Urine clean catch Generic External Data Provider LAB MICROBIOLOGY - GENERAL ORDERABLES Final Result Performing Organization Address [facility] Co de Phone Number [facility] [address] [place] [phone] * Magnesium (08/08/2024 4:20 PM EST) Only the most recent of2 resultswithin the time period is included. Magnesium 1.9 1.6 - 2.6 mg/dL [facility] 08/08/2024 4:20 PM EST 08/08/2024 4:23 PM EST Generic External Data Provider LAB BLOOD ORDERAB LES Final Result Performing Organization Address [facility] de Phone Number [facility] [address] [place] [phone] * Lipase (08/08/2024 4:20 PM EST) Only the most recent of2 resultswithin the time period is included. Lipase 15 8 - 78 U/L [facility] 08/08/2024 4:20 PM EST 08/08/2024 4:23 PM EST Generic External Data Provider LAB BLOOD ORDERAB LES Final Result Performing Organization Address [facility] Phone Number [facility] [address] [place] [phone] * US OB Pelvis with Transvaginal (08/08/2024 2:18 PM EST) Anatomical Region Laterality Modality Pelvis Ultrasound 08/08/2024 2:18 PM EST Narrative 08/08/2024 3:02 PM EST ? [facility] ?[address] [facility] ?[place] [address] ? Ultrasound Report ? Signed ? Patient: Brito,Guarionis B ?MR#: [id number] ?? [id number] ? : 2000 ?Acct:[id number] ? Age/Sex: 24 / F ?ADM Date: 01/29/25 ? Loc: HO.ED ? Attending Dr: ? Ordering Physician: Irene Hector ?? Date of Service: 08/08/24 ?? Procedure(s): US OB pelvic and transvaginal ?? Accession Number(s): [id number] ? cc: Velma Carlton MD; Irene Hector [...] DD/ 1418 ? TD/TT: 08/08/24 1433 ? Ripsaw Operator: ? Procedure Note Donotuseinterpreter, Image - 08/08/[address] [phone] Ultrasound Report Signed Patient: Jeremy Brito BMR#: [id number] : 2000Acct:[id number] Age/Sex: M Date: 08/08/24 Loc: HO.ED Attending Dr: Ordering Physician: Irene Hector Date of Service: 08/08/24 Procedure(s): US OB pelvic and transvaginal Accession Number(s): [id number] cc: Velma Carlton MD; Irene Hector EXAMINATION: [...] 08/08/24 1459 DD/ 1418 TD/TT: 08/08/24 1433 Ripsaw Operator: [facility] External Provider IMG US PROCEDURES Edited Result - Final * ABO Group And RH Type (07/23/2024 4:15 PM EST) Blood Type OP [facility] 07/23/2024 4:15 PM EST 07/23/2024 4:19 PM EST Generic External Data Provider LAB BLOOD BANK TE ST ORDERABLES Final Result [facility] [address] [place] [phone] * SARS-CoV-2 RNA, Influenza A/B, and RSV RNA, Ql NAAT (06/24/2024 3:27 PM EST) Influenza A PCR NEGATIVE Negative [facility] Influenza B PCR NEGATIVE Negative [facility] Resp Syncy Virus RNA Qual PCR NEGATIVE Negative [facility] SARS COV2 PCR NEGATIVE Negative [facility] Comment:All test results mus t be correlated with clinical findings.Negative results do not preclude SARS-CoV2, influenza Avirus, influenza B virus and/or RSV infectionand should not be used as the sole basis for treatment orother patient management decisions. Negative results must becombined with clinical observations, patient history, andepidemiological information.This test has not been evaluated for monitoring treatment ofinfection.This test has been authorized by the FDA under an EmergencyUse Authorization (EUA) for use by authorized laboratories.Testing performed on the Slyce GeneXpert utilizingreal-time RT-PCR.All SARS CoV2 and positive influenza A/B results arereported to [facility]. 06/24/2024 3:27 PM EST 06/24/2024 3:30 PM EST Generic External Data Provider LAB MICROBIOLOGY - GENERAL ORDERABLES Final Result [facility] [address] [place] [phone] * (ABNORMAL) Bacterial Vaginosis (06/24/2024 3:12 PM EST) Pathologist [facility] TRICHOMONAS VAGINALIS DETECTION BY PCR NOT DETECTED Not Detect [facility] BACTERIAL VAGINOSIS DETECTION BY PCR NEGATIVE Negative [facility] Comment:The BV organism targ ets of the Xpert Xpress MVP test can becommensal in women; Xpert Xpress MVP positive results forbacterial vaginosis should be considered in conjunction withother clinical and patient information to determine thedisease status. Organisms that are not detected by the XpertXpress MVP test have also been reported to be associatedwith BV and aerobic vaginitis.The Xpert Xpress MVP test performance has not been evaluatedin patients under the age of 14. FELISA GROUP DETECTION BY PCR DETECTED(A) Not Detect [facility] Felisa glab krusei PCR NOT DETECTED Not Detect [facility] 06/24/2024 3:12 PM EST 06/24/2024 4:38 PM EST Generic External Data Provider LAB MICROBIOLOGY - GENERAL ORDERABLES Final Result [facility] [address] [place] [phone] * Chlamydia/N. Gonorrhoeae RNA, TMA, Urogenitial (06/24/2024 3:12 PM EST) Pathologist [facility] CT PCR NOT DETECTED Not Detect. [facility] Comment:A not detected test result does not exclude the possibilityof infection because test results can be affected byimproper specimen collection, concurrent antibiotic therapy,or the number of organisms in the specimen which may bebelow the sensitivity of the test. As with many diagnostictests, results from the Xpert CT/NG assay should beinterpreted in conjunction with other laboratory andclinical data available to the clinician.Xpert CT/NG performance has not been evaluated in patientsless than 14 years of age. The assay should not be used forthe evaluationof suspected sexual abuse or for other medico-legalindications. Additional testing is recommended in anycircumstance when false positive or false negative resultscould lead to adverse medical, social or psychologicalconsequences. NG PCR NOT DETECTED Not Detect. [facility] Comment:A not detected test result does not exclude the possibilityof infection because test results can be affected byimproper specimen collection, concurrent antibiotic therapy,or the number of organisms in the specimen which may bebelow the sensitivity of the test. As with many diagnostictests, results from the Xpert CT/NG assay should beinterpreted in conjunction with other laboratory andclinical data available to the clinician.Xpert CT/NG performance has not been evaluated in patientsless than 14 years of age. The assay should not be used forthe evaluationof suspected sexual abuse or for other medico-legalindications. Additional testing is recommended in anycircumstance when false positive or false negative resultscould lead to adverse medical, social or psychologicalconsequences. 06/24/2024 3:12 PM EST 06/24/2024 4:38 PM EST Narrative [facility] - 06/25/2024 3:01 AM EST Vaginal Generic External Data Provider LAB MICROBIOLOGY - GENERAL ORDERABLES Final Result Performing Organization Address [facility] Co de Phone Number [facility] [address] [place] [phone] * Wet prep, genital (06/24/2024 3:12 PM EST) Vaginal Fluid Vaginal structure / Unknown 06/24/2024 3:12 PM EST 06/24/2024 4:38 PM EST Comment:Vaginal Narrative [facility] - 06/24/2024 4:47 PM EST Trichomonas Prep Direct Microscopic Exam Trichomonas Prep No trichomonads or yeast seen Specimen Source: Vaginal Generic External Data Provider LAB MICROBIOLOGY - GENERAL ORDERABLES Final Result Performing Organization Address City/[facility] Co de Phone Number [facility] [address] [place] [phone] * Pap Smear (07/30/2022 11:32 AM EST) 07/30/2022 11:3 2 AM EST 08/02/2022 11:30 AM EST [facility] - 08/09/2022 3:05 PM EST ----- ------- Name: Jeremy Brito ? Age/Sex: 22/F ? : 2000 Unit#: [id number] ?? Attend Dr: Marilee Padgett CNM ?Re07/30/22 ?Status: DEP REF ? Location: HO.LNP ?Disch: ? ----- ------- SPEC : [id number] ? RECD: 08/02/22-1129 ? STATUS: ??SOUT ? REQ NUM: [id number] ? RICHARD: 07/30/22-1131 ? SUBM DR: Marilee Padgett CNM ? ENTERED: ??08/03/22 ?SP TYPE: Pap Smr ?OTHR : ? ORDERED: ??Pap Smear ? Interpretation ?? Satisfactory for evaluation. ?? Negative for intraepithelial lesion or malignancy. ?? Coccobacilli consistent with shift in vaginal kishore. ?Clinical Information LMP: 07/05/2022 Previous PAP test: None ? Material Received ?? ThinPrep-Cervical ----- ------- Signed (signature on file) Sondra Vera 08/09/22 [id number] ? ----- ------- ? END OF REPORT ? [facility] External Provider LAB CYT OLOGY ORDERABLES Final Result Performing Organization Address [facility] Co de Phone Number [facility] [address] [place] [phone] * HIV AB/AG (04/02/2021 12:38 PM EDT) [facility] HIV AB/AG Nonreactive Nonreactive [facility] Comment: HIV-1 p24 Ag and/or HIV-1/HIV-2 Ab not detected. ?? A test result that is nonreactive does not exclude the possibility of exposure to or infection with HIV-1 and/or HIV-2. Nonreactive results in this assay for individuals with prior exposure to HIV-1 and/or HIV-2 may be due to antigen and antibody levels that are below the limit of detection of this assay. ?? The [employer] HIV Ag/Ab Combo assay result and supplemental assay results should be interpreted in conjunction with the patient's clinical presentation, history and other laboratory results. ??If the results are inconsistent with clinical evidence, additional testing is suggested to confirm the result. Hepatitis C Antibody Nonreactive Nonreactive [facility] Comment: Antibodies to HCV not detected; does not exclude early acute HCV infection. Hepatitis B Surface Antigen Negative Negative [facility] 04/02/2021 12:3 8 PM EDT Huy Cordova MD HISTORICAL/NON ORDERABLE LABS Fi nal Result Performing Organization Address City/[facility] Co de Phone Number [facility] [address] from Last 3 Months or Most Recently Relevant to Health Maintenance Insurance [facility] ST[facility] Care Teams Survey Coordinator Relationship Specialty Start Date End Date Geovanna Aguilar MD [address] [place] [phone] PCP - General Internal Medicine 03/18/23
[2024-08-13 16:06] LABS: Acetaminophen LAB < 3 mcg/mL (<30)
--- NOTE | 2024-08-13 16:28 | PC.NURSE ---
pt escorted to and from ultrasound without issue
[2024-08-13 20:56] VITALS: BP 104/60; PULSE 96; RESP 20; TEMP 37.7; O2SAT 98
[2024-08-13] MEDS: Acetaminophen 325 MG TABLET 975 MG PO (21:04)
--- NOTE | 2024-08-13 21:25 | PC.NURSE ---
patient complains of cough. chils. and body aches that started yesterday. Tylenol given and swab sent to lab. Will monitor.
[2024-08-13 21:54] LABS: Influenza A PCR POSITIVE (Negative); Influenza B PCR NEGATIVE (Negative); Resp Syncy Virus RNA Qual PCR NEGATIVE (Negative); SARS COV2 PCR INHOUSE NEGATIVE (Negative)
[2024-08-13 21:59] LABS: UPreg QC Valid YES; Urine Pregnancy POSITIVE (NEGATIVE)
[2024-08-13 22:02] LABS: Amphetamine Screen Urine Not Detected (Not Detect); Barbiturates, Urine Not Detected (Not Detect); Benzodiazepines Screen Urine Not Detected (Not Detect); Buprenorphine Scr Not Detected (Not Detect); Cannabinoid Screen Urine POSITIVE (Not Detect); Cocaine Screen Urine Not Detected (Not Detect); Fentanyl, urine Not Detected (Not Detect); Methadone Screen, Urine Not Detected (Not Detect); Opiate Screen Urine Not Detected (Not Detect); Oxycodone Screen Urine Not Detected (Not Detect); Phencyclidine Screen Urine Not Detected (Not Detect)
[2024-08-13] MEDS: Benzonatate 100 MG CAPSULE 200 MG PO (22:02)
[2024-08-13 22:03] LABS: Appearance Urine Cloudy; Color Urine Yellow; Glucose Urine UA Negative (Negative); Leukocyte Esterase Urine Trace (Negative); Nitrite Urine Negative (Negative); PH 6.5 (5.0-9.0); Specific Gravity - Urine 1.025 (1.005-1.025); UMIC TRIGGER UA YES; Urine Blood Negative (Negative); Urine Ketones 40 mg/dL (Negative); Urine Protein Trace mg/dL (Neg-Trace)
[2024-08-13 22:08] LABS: Bacteria Urine 1+ (None Seen); Hyaline Casts Urine 0-2 /LPF (0-2); RBC Urine 0-2 /HPF (0-2); WBC Urine 0-5 /HPF (0-5)
--- NOTE | 2024-08-13 22:14 | PC.NURSE ---
patient tested positive for Influenza A. aware
[2024-08-13] MEDS: Oseltamivir Phosphate 75 MG CAPSULE PO (22:20)
[2024-08-14 02:16] VITALS: RESP 22; TEMP 37.1
[2024-08-14 05:10] VITALS: BP 123/65; PULSE 110; RESP 19; TEMP 37.7; O2SAT 100
[2024-08-14] MEDS: Acetaminophen 325 MG TABLET 650 MG PO ×4 (05:12→20:08)
[2024-08-14] MEDS: Oseltamivir Phosphate 75 MG CAPSULE PO ×2 (09:18→20:08)
--- NOTE | 2024-08-14 09:27 | PC.NURSE ---
Pt moaning in her room, this RN entered room to check on patient. pt reports she feels unwell and cold. This RN validated symptoms, educating her that those are typical symptoms with the flu. Morning medication administered per MAR
--- NOTE | 2024-08-14 11:07 | PHA.MEDREC ---
Addendum entered by Darion Montelongo RPh 08/14/24 11:09: MED REC CHECKED BY [facility] Original Note: Pharmacy Consult ? Medication Reconciliation Pharmacy has reviewed the medication reconciliation done by nursing.
[2024-08-14] MEDS: diphenhydrAMINE HCL 25 MG CAPSULE 50 MG PO ×3 (11:26→23:05)
[2024-08-14] MEDS: Ondansetron ODT 4 MG TAB.RAPDIS TRANSLINGU (11:26)
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
--- NOTE | 2024-08-14 11:33 | PC.NURSE ---
Patient reports to this RN I peed on myself, but I'm not getting up . This RN attempted to offer to change sheets/blankets and provide patient with new hospital gown. patient refused stating no, I am not getting up, I am comfortable here
[2024-08-14 12:31] VITALS: BP 113/69; PULSE 102; RESP 18; TEMP 37.2; O2SAT 96
--- NOTE | 2024-08-14 12:39 | PC.NURSE ---
Patient refused blood draw
[2024-08-14] MEDS: Pyridoxine HCl (Vitamin B6) 50 MG TABLET 25 MG PO ×2 (14:31→20:07)
[2024-08-14 15:13] VITALS: BP 108/65; PULSE 104; RESP 16; TEMP 36.6; O2SAT 100; BMI 41.2
--- NOTE | 2024-08-14 17:16 | PC.ADMIT ---
Jeremy arrived [place] the unit at 1515 [place] [facility] [place]. She signed Conditional Voluntary then signed a three day. Skin check done on arrival, skin appears to be intact. When asked what brought her in she stated Stress, it's too much. She reports endorsing anxiety and depression, she reports passive SI, But I think about my daughters. She denied homicidal ideation, she reports auditory hallucinations stated It's not voices, it's my small daughter crying, she reports that her daughter is not in the house when she experiences this. She reports visual hallucinations stated It's worst at night, I think a lot, my anxiety is high, I get scared. She reports poor sleep a night, she also reports her appetite has been Poor, stated I had not eaten in two days I finally ate something today. She is currently and has the flu. Per assessment she was brought on a section 12 issued by the [place] [employer] after she contacted EMD expressing SI with plan to stab herself. When EMS arrived, patient was found in her bathroom, disrobed, with a knife and crying. 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 She is currently on 15 minute checks.
[2024-08-14 19:48] VITALS: BP 105/66; PULSE 89; RESP 16; TEMP 38.1; O2SAT 97
[2024-08-15] MEDS: Acetaminophen 325 MG TABLET 650 MG PO ×3 (00:13→18:04)
[2024-08-15] MEDS: traZODone HCL 50 MG TABLET PO (00:22)
[2024-08-15 07:55] VITALS: BP 129/61; PULSE 90; RESP 18; TEMP 37.4; O2SAT 97
[2024-08-15] MEDS: Pyridoxine HCl (Vitamin B6) 50 MG TABLET 25 MG PO (08:00)
[2024-08-15] MEDS: Oseltamivir Phosphate 75 MG CAPSULE PO ×2 (08:00→21:11)
[2024-08-15] MEDS: Folic Acid 1 MG TABLET PO (08:00)
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
[2024-08-15] MEDS: Ondansetron ODT 4 MG TAB.RAPDIS TRANSLINGU ×2 (12:04→17:15)
[2024-08-15] MEDS: Sertraline HCL 25 MG TABLET 12.5 MG PO (14:14)
[2024-08-15 20:00] VITALS: BP 133/56; PULSE 88; RESP 16; TEMP 38.8; O2SAT 99
[2024-08-15] MEDS: diphenhydrAMINE HCL 25 MG CAPSULE 50 MG PO (21:11)
[2024-08-16 07:00] VITALS: BMI 43.1
[2024-08-16 08:00] VITALS: BP 119/59; PULSE 94; RESP 18; TEMP 36.9; O2SAT 99
[2024-08-16] MEDS: Pyridoxine HCl (Vitamin B6) 50 MG TABLET 25 MG PO (08:25)
[2024-08-16] MEDS: Folic Acid 1 MG TABLET PO (08:25)
[2024-08-16] MEDS: Oseltamivir Phosphate 75 MG CAPSULE PO ×2 (08:25→20:50)
[2024-08-16] MEDS: Sertraline HCL 25 MG TABLET PO (08:25)
[2024-08-16 12:14] VITALS: TEMP 37.3
[2024-08-16] MEDS: Acetaminophen 325 MG TABLET 650 MG PO (12:16)
--- NOTE | 2024-08-16 17:06 | HO.PSYCHPN ---
Subjective Subjective Date of Service: 08/16/24 Reason For Visit: Depression with SI, Interim History: Met with patient; discussed with team Patient doing much better, appreciative for help; discussed history of trauma in more detail and her struggles. Patient employed coping skills but very much feels a need for therapist to process her history. Agrees to titration of Zoloft. Mental Status Exam Mental Status Exam Narrative: Pt is alert and oriented; behavior is cooperative, friendly and calm; patient is not in distress; dressed in casual attire with unkempt hair but adequate hygiene; mood is described as better and affect congruent; eye contact appropriate; Speech is normal rate, volume and prosody and not pressured; no psychomotor agitation/retardation present; thought process is organized and goal directed; Thought content is on tx; otherwise pertinent to relevant topics and without any delusional content, paranoid ideations or grandiosity; denies any SI/HI. There is no evidence of perceptual disturbance. Patients insight and judgment appear intact. Diagnostics Vital Signs (24Hr): Vital Signs - 24 hr 08/15/24 20:00 08/16/24 08:00 08/16/24 12:14 Temperature 102 F H 98.5 F 99.1 F Pulse Rate 88 94 Respiratory Rate 16 18 Blood Pressure 133/56 L 119/59 L Pulse Oximetry 99 99 Oxygen Delivery Method Room Air Room Air BMI result Body Mass Index 43.1 Labs 08/13/24 14:07 08/13/24 14:07 Imaging Radiology Impressions: ITS Impressions Pelvic/Transvag US 08/13/24 15:50 IMPRESSION: 1. Single intrauterine gestation with ultrasound gestational age of 6 weeks and 5 days +/- 4 days. 2. Estimated date of delivery is 04/03/2025 +/- 4 days. 3. No gestational complication evident. 4. No maternal adnexal mass or pelvic ascites. Electronically signed by: Moncho Duque MD 08/13/2024 04:44 PM [facility] Medications Medications Current Medications Acetaminophen (Acetaminophen 325 Mg Tablet) 650 mg PO Q4H PRN PRN Reason: fever/moderate pain Last Admin: 08/16/24 12:16 Dose: 650 mg Al Hydroxide/Mg Hydroxide (Magnesium Hydrox/Alum Hydrox 30 Ml Oral.Susp) 30 ml PO Q6H PRN PRN Reason: Heartburn/Nausea Diphenhydramine HCl (Diphenhydramine Hcl 25 Mg Capsule) 50 mg PO Q6H PRN PRN Reason: stuffy nose/congestion Last Admin: 08/15/24 21:11 Dose: 50 mg Folic Acid (Folic Acid 1 Mg Tablet) 1 mg PO DAILY ON LICENSE OF [facility] Last Admin: 08/16/24 08:25 Dose: 1 mg Magnesium Hydroxide (Milk Of Magnesia 30 Ml Oral.Susp) 30 ml PO DAILY PRN PRN Reason: Constipation Ondansetron HCl (Ondansetron Odt 4 Mg Tab.Rapdis) 4 mg TRANSLINGU Q6H PRN PRN Reason: Nausea and Vomiting Last Admin: 08/15/24 17:15 Dose: 4 mg Oseltamivir Phosphate (Oseltamivir Phosphate 75 Mg Capsule) 75 mg PO BID SACHIN Stop: 08/18/24 09:01 Last Admin: 08/16/24 08:25 Dose: 75 mg Pyridoxine HCl (Pyridoxine Hcl (Vitamin B6) 50 Mg Tablet) 25 mg PO DAILY ON LICENSE OF [facility] Last Admin: 08/16/24 08:25 Dose: 25 mg Sertraline HCl (Sertraline Hcl 50 Mg Tablet) 50 mg PO DAILY SACHIN Trazodone HCl (Trazodone Hcl 50 Mg Tablet) 50 mg PO BEDTIME MRX1 PRN PRN Reason: Insomnia Last Admin: 08/15/24 00:22 Dose: 50 mg Trazodone HCl (Trazodone Hcl 50 Mg Tablet) 50 mg PO BEDTIME SACHIN Allergies Allergies Allergy/AdvReac Type Severity Reaction Status Date / Time amoxicillin [AMOXICILLIN] Allergy Severe RASH, Verified 08/13/24 13:29 unknown Penicillins [PENICILLINS] Allergy Intermediate WHOLE BODY Verified 08/13/24 13:29 RASH Assessment & Plan Assessment & Plan (1) MDD (major depressive disorder), recurrent episode, moderate: Status: Acute Code(s): F33.1 - Major depressive disorder, recurrent, moderate (2) PTSD (post-traumatic stress disorder): Status: Acute Code(s): F43.10 - Post-traumatic stress disorder, unspecified Plan Pt is a 24 yo Female, 1 mo , with history of depression/post , who presents for worsening depression and SI. been very stressed for several months this past week increased stress with bills adding up and i broke down and i couldn't take it; my mom triggered me, saying she's a bad mother lot of anxiety and near panic attack; cannot sleep...has the flu, feeling sick thoughts of she could superficially cut herself, but never suicidal (says i love my life and i have 2 daughters); got in bed w/ knife and called 911 wanting to come to hospital Currently denies any SI. Reports she has never had any thoughts of hurting her own children Wants treatment -History of trauma, severe; ongoing PTSD symptoms and she remains Always scared at night since little; at night, PTSD anxiety kicks in and starts hearing footsteps uses TV, white noise Formulation/clinical reasoning: History of depression, PTSD with history of severe trauma. Her mother is a significant trigger and possibly complicit in patient's childhood trauma. Currently her mother helps very much with childcare however is also highly critical of patient. Patient denies any SI and loves her children. Undergoing much psychosocial stressors and wanting help. Agrees to start Zoloft Hospital course: 08/16 Patient doing much better, appreciative for help; discussed history of trauma in more detail and her struggles. Patient employed coping skills but very much feels a need for therapist to process her history. Agrees to titration of Zoloft. Patient also benefitted from trazodone wants to continue. Gin Inspector reviewed with patient medication regimen and risks given who understands and wants to continue with both Zoloft and trazodone -patient in good behavioral and impulse control, engaged in treatment and appropriate with peers and staff. Plan: Three day notice Q 15 minute checks Start Zoloft Trazodone q.h.s. Patient educated on: diagnosis, medication risk/benefits and therapeutic strategies Informed Consent: understands Reason for continued inpatient stay Substantial Risk for: stable for discharge Time Spent With Patient Time: Total time managing care of this patient today ____ minutes.
[2024-08-16 20:00] VITALS: BP 117/68; PULSE 79; TEMP 36.4; O2SAT 100
[2024-08-16] MEDS: traZODone HCL 50 MG TABLET PO (21:12)
[2024-08-16] MEDS: Ondansetron ODT 4 MG TAB.RAPDIS TRANSLINGU (23:13)
[2024-08-17] MEDS: Folic Acid 1 MG TABLET PO (08:47)
[2024-08-17] MEDS: Pyridoxine HCl (Vitamin B6) 50 MG TABLET 25 MG PO (08:48)
[2024-08-17] MEDS: Oseltamivir Phosphate 75 MG CAPSULE PO (08:51)
--- NOTE | 2024-08-17 09:05 | P.DS_ITS ---
DS: Providers Provider Date of Service: 08/17/24 Date of admission: 08/14/24 14:31 Date of discharge: 08/17/24 Primary care physician: [facility] Attending physician on admission: Dharmesh Mondragon Attending physician on discharge: Dharmesh Mondragon DS: Diagnosis Discharge Diagnosis (1) MDD (major depressive disorder), recurrent episode, moderate: Status: Acute DS: Medications Discharge Medications Home Medications: Previous Rx's ?Medication ?Instructions ?Recorded ondansetron 4 mg disintegrating 4 mg translingual Q6H PRN Nausea 08/17/24 tablet And Vomiting 30 days #30 tabs oseltamivir 75 mg capsule (Tamiflu) 75 mg PO BID 2 days #4 caps 08/17/24 [id number] fum 28 1 pkg PO DAILY 90 days #120 ea 08/17/24 mg-folic acid 800 mcg-dha 200 mg oral pack ( + DHA) pyridoxine (vitamin B6) 25 mg 25 mg PO DAILY 90 days #90 tabs 08/17/24 tablet sertraline 50 mg tablet 50 mg PO DAILY 30 days #30 tabs 08/17/24 trazodone 50 mg tablet 50 mg PO BEDTIME 30 days #30 tabs 08/17/24 Mental Status Exam Mental Status Exam Narrative: Pt is alert and oriented; behavior is cooperative, friendly and calm; patient is not in distress; dressed in hospital attire with adequate hygiene and grooming; mood is described as better... Good and affect congruent; eye contact appropriate; Speech is normal rate, volume and prosody and not pressured; no psychomotor agitation/retardation present; thought process is organized and goal directed; Thought content is on tx; otherwise pertinent to relevant topics and without any delusional content, paranoid ideations or grandiosity; denies any SI/HI. There is no evidence of perceptual disturbance. Patients insight and judgment are intact. Data Data Completed and Pending Completed studies during hospitalization [Text1]: 08/13/24 08/13/24 08/13/24 14:07 14:07 21:09 WBC 4.4 L RBC 4.64 Hgb 13.7 Hct 40.8 MCV 87.9 MCH 29.5 MCHC 33.6 RDW 12.7 Plt Count 195 MPV 11.5 Immature Gran % (Auto) 0.2 Neut % (Auto) 83.8 H Lymph % (Auto) 6.2 L [place] % (Auto) 8.0 Eos % (Auto) 0.9 Baso % (Auto) 0.9 Lymph # (Auto) 0.3 L [place] # (Auto) 0.4 Eos # (Auto) 0.0 Baso # (Auto) 0.0 Abs Immat Gran (auto) 0.01 Absolute Neuts (auto) 3.6 Absolute Nucleated RBC 0.000 Nucleated RBC % (auto) 0.0 Sodium 135 Potassium 3.6 Chloride 107 Carbon Dioxide 17 L Anion Gap 15 BUN 5 L Creatinine 0.61 Estim Creat Clear Calc 170.9 Estimated GFR > 60 Random Glucose 81 Calcium 9.1 D Total Bilirubin 0.3 AST 19 ALT 11 Alkaline Phosphatase 53 Total Protein 7.2 Albumin 3.6 Beta HCG, Quant [id number] Cancelled Hold Yellow Top See Note Urine Color Urine Appearance Urine pH Ur Specific [place] Urine Protein Urine Glucose (UA) Urine Ketones Urine Blood Urine Nitrite Ur Leukocyte Esterase Urine RBC Urine WBC Ur Squamous Epith Cells Urine Bacteria Hyaline Casts Urine Test Salicylates < 5.0 L Urine Opiates Screen Ur Buprenorphine Scrn Ur Oxycodone Screen Urine Methadone Screen Urine Fentanyl Screen Acetaminophen < 3 Ur Barbiturates Screen Ur Phencyclidine Scrn Ur Amphetamines Screen U Benzodiazepines Scrn Urine Cocaine Screen U Marijuana (THC) Screen Ethyl Alcohol < 10 COVID-19 (GURPREET) Cancelled COVID-19 Clin Com Cancelled Influenza Type A (PCR) POSITIVE A Influenza Type B (PCR) NEGATIVE RSV RNA Qual (PCR) NEGATIVE SARS-CoV-2 RNA (RT-PCR) NEGATIVE 08/13/24 21:45 WBC RBC Hgb Hct MCV MCH MCHC RDW Plt Count MPV Immature Gran % (Auto) Neut % (Auto) Lymph % (Auto) [place] % (Auto) Eos % (Auto) Baso % (Auto) Lymph # (Auto) [place] # (Auto) Eos # (Auto) Baso # (Auto) Abs Immat Gran (auto) Absolute Neuts (auto) Absolute Nucleated RBC Nucleated RBC % (auto) Sodium Potassium Chloride Carbon Dioxide Anion Gap BUN Creatinine Estim Creat Clear Calc Estimated GFR Random Glucose Calcium Total Bilirubin AST ALT Alkaline Phosphatase Total Protein Albumin Beta HCG, Quant Hold Yellow Top Urine Color Yellow Urine Appearance Cloudy Urine pH 6.5 Ur Specific [place] 1.025 Urine Protein Trace Urine Glucose (UA) Negative Urine Ketones 40 Urine Blood Negative Urine Nitrite Negative Ur Leukocyte Esterase Trace H Urine RBC 0-2 Urine WBC 0-5 Ur Squamous Epith Cells 11-20 Urine Bacteria 1+ Hyaline Casts 0-2 Urine Test POSITIVE H Salicylates Urine Opiates Screen Not Detected Ur Buprenorphine Scrn Not Detected Ur Oxycodone Screen Not Detected Urine Methadone Screen Not Detected Urine Fentanyl Screen Not Detected Acetaminophen Ur Barbiturates Screen Not Detected Ur Phencyclidine Scrn Not Detected Ur Amphetamines Screen Not Detected U Benzodiazepines Scrn Not Detected Urine Cocaine Screen Not Detected U Marijuana (THC) Screen POSITIVE H Ethyl Alcohol COVID-19 (GURPREET) COVID-19 Clin Com Influenza Type A (PCR) Influenza Type B (PCR) RSV RNA Qual (PCR) SARS-CoV-2 RNA (RT-PCR) Imaging Diagnostic Imaging Impressions Pelvic/Transvag US 08/13/24 15:50 IMPRESSION: 1. Single intrauterine gestation with ultrasound gestational age of 6 weeks and 5 days +/- 4 days. 2. Estimated date of delivery is 04/03/2025 +/- 4 days. 3. No gestational complication evident. 4. No maternal adnexal mass or pelvic ascites. Electronically signed by: Moncho Duque MD 08/13/2024 04:44 PM [facility] DS: Summary Hospital Course Hospital Course: Pt is a 24 yo Female, 1 mo , with history of depression/post , who presents for worsening depression and SI. been very stressed for several months this past week increased stress with bills adding up and i broke down and i couldn't take it; my mom triggered me, saying she's a bad mother lot of anxiety and near panic attack; cannot sleep...has the flu, feeling sick thoughts of she could superficially cut herself, but never suicidal (says i love my life and i have 2 daughters); got in bed w/ knife and called 911 wanting to come to hospital Currently denies any SI. Reports she has never had any thoughts of hurting her own children Wants treatment -History of trauma, severe; ongoing PTSD symptoms and she remains Always scared at night since little; at night, PTSD anxiety kicks in and starts hearing footsteps uses TV, white noise Formulation/clinical reasoning: History of depression, PTSD with history of severe trauma. Her mother is a significant trigger and possibly complicit in patient's childhood trauma. Currently her mother helps very much with childcare however is also highly critical of patient. Patient denies any SI and loves her children. Undergoing much psychosocial stressors and wanting help. Agrees to start Zoloft Hospital course: 08/16 Patient doing much better, appreciative for help; discussed history of trauma in more detail and her struggles. Patient employed coping skills but very much feels a need for therapist to process her history. Agrees to titration of Zoloft. Patient also benefitted from trazodone wants to continue. Line Driver reviewed with patient medication regimen and risks given who understands and wants to continue with both Zoloft and trazodone -patient in good behavioral and impulse control, engaged in treatment and appropriate with peers and staff. Impression: Patient remains in good behavioral and impulse control. She reports that her mood is good that she is feeling much better and optimistic. Patient e xpresses much thank for help received on the unit and feels that medications are very helpful and will continue with them. She is looking forward to meeting with outpatient provider and therapist. Patient is eager to return home and see her children. She is not in imminent risk for harm to self or others and request for discharge honored. Time spent discussing smoking cessation with patient: 3 to 10 minutes Status at Discharge Functional status at discharge: independent ambulation Overall status at discharge: patient is back to baseline Time Spent with Patient Time attestation: Total time managing care of this patient today _40___ minutes. Time spent: Greater than 30 minutes Specific discharge activities: Met with patient; discussed with team; charting; prescriptions Discharge Plan Discharge Anticipated Discharge Date/Time: 08/17/24 11:30 Patient Disposition: Home, Self-Care Discharge Diagnosis: MDD, recurrent, severe without psychosis, in partial remission Referrals: [facility] Intake earlene Grant [Other] - 08/23/24 3:00 pm (You will need to make this appointment in order to follow through with therapy and psychiatry appointments.) [facility] Psyche Eval earlene Murphy [Other] - 09/12/24 3:20 pm (*Telehealth*) [facility] Counseling Med Mgmt w Jaron Harrell [Other] - 10/11/24 10:20 am (*Telehealth*) [facility] [Primary Care Provider] - 1 Week Huy Cordova MD [Physician] - 1 Week (Office will call pt with appoinment ) Discharge Medications: New oseltamivir [Tamiflu] 75 mg Capsule 75 mg PO BID 2 Days Qty: 4 0RF sertraline 50 mg Tablet 50 mg PO DAILY 30 Days Qty: 30 0RF trazodone 50 mg Tablet 50 mg PO BEDTIME 30 Days Qty: 30 0RF ondansetron 4 mg Tablet,Disintegrating 4 mg translingual Q6H PRN (Reason: Nausea And Vomiting) 30 Days Qty: 30 0RF pyridoxine (vitamin B6) 25 mg tablet 25 mg PO DAILY 90 Days Qty: 90 0RF + DHA 28 mg iron-800 mcg-200 mg combo pack 1 pkg PO DAILY 90 Days Qty: 120 0RF Discharge Orders: Discharge Order (Routine); Ordered 08/17/24 Ordered By: Dharmesh Mondragon Diet: Regular diet Activity on Discharge: As tolerated Stand Alone Forms: Patient Portal Discharge page, Community Support Print Language: Slovak Care Plan Goals: Maintain mood and safe behaviors Take medications as prescribed Practice coping skills Continue with outpatient providers and reach out to them as needed Health Concerns: Mood stability and behaviors First-trimester Plan of Treatment: Follow up with your OB, PCP, psychiatric provider and other outpatient providers regarding above concerns Take medications as prescribed Assessment: Risk assessment at time of discharge:? Patient was interviewed prior to discharge and found to be fully oriented and without any SI or HI. Patient has improved insight and judgment and wants to continue treatment. Patient is not in imminent risk of harm to self or others and has a safety plan that includes presenting to the closest ER or calling 911 if feeling unsafe.? Patient has been observed closely by nursing and unit staff throughout admission; patient has not engaged in any behaviors that suggest dangerousness to self or others and has demonstrated appropriate behaviors and impulse control Discharge Date/Time: 08/17/24 12:25
[2024-08-17] MEDS: Sertraline HCL 50 MG TABLET PO (10:39)
[2024-08-17] MEDS: Ondansetron ODT 4 MG TAB.RAPDIS TRANSLINGU (11:17)
[2024-08-17] MEDS: Fluconazole 150 MG TABLET PO (12:17)
== END 2024-08-17 12:25 | disposition home or self-care (01) | DRG 566 ==
LOC: HO.ED 19:00 → HO.PM5 08-14 14:36
PROVIDERS: Emergency Medicine Emergency Medical Services; Physician Assistant Medical; Admitting Provider Clinical Nurse Specialist Psychiatric/Mental Health, Adult; Emergency Provider Emergency Medicine; Visit Provider Psychiatry & Neurology Psychiatry
DX: O99.341 Other mental disorders complicating pregnancy, first trimester (principal); F33.1 Major depressive disorder, recurrent, moderate; R45.851 Suicidal ideations; Z3A.01 Less than 8 weeks gestation of pregnancy; J10.1 Influenza due to other identified influenza virus with other respiratory manifestations; O98.511 Other viral diseases complicating pregnancy, first trimester; F43.10 Post-traumatic stress disorder, unspecified; Z62.810 Personal history of physical and sexual abuse in childhood; Z79.899 Other long term (current) drug therapy
CPT/HCPCS: 0241U; 76801; 76817; 80053; 80143; 80179; 80307; 81001; 81003; 81025; 84702; 85025; 87635; 99285; S9485

== ENCOUNTER → 2024-08-13 14:05 | Outpatient (BNV) | payer OTHER, SELFPAY | PROVIDERS: Emergency Provider Emergency Medicine; Visit Provider Social Worker | DX: F33.1 Major depressive disorder, recurrent, moderate (principal) | CPT/HCPCS: 99232 ==

== ENCOUNTER 2024-10-20 22:42 | Emergency (ER) | payer MEDICAID, SELFPAY ==
[2024-10-20 22:46] VITALS: BP 108/60; PULSE 86; RESP 16; TEMP 36.7; O2SAT 99; BMI 42.3
--- NOTE | 2024-10-20 23:05 | PC.NURSE ---
pt haveing ekg, labs and chest xray.
--- OUTSIDE RECORDS SUMMARY | 2024-10-20 23:42 | XMS_ITS | Clinical Summary ---
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 Role Phone Geovanna Aguilar MD Primary Care Pro vider Allergies Active Allergy Reactions Criticality Noted Date Comments Amoxicillin Unknown Other reaction(s): rash Penicillin G 08/08/2015 Other reaction(s): Unknown Active Problems Problem Noted Date Diagnosed Date 08/13/2024 Weight gain 12/23/2022 Anemia 10/12/2022 Routine adult health maintenance 10/12/2022 Morbid obesity 05/14/2016 Posttraumatic stress disorder 12/25/2014 Intermittent explosive disorder 10/10/2014 Comments Yes Encounters Date Type Department Care Team Description 10/11/2024 Patient Outreach [facility] [address] [place] [phone] Geovanna Aguilar MD Care Coordination (C3 -[facility] Micki Acuña telephone call outreach) 09/21/2024 Population Health Risk Score [facility] Care [facility] (C3) Department [address] [phone] Provider, Population Health Generic 09/19/2024 Patient Outreach [facility] [address] [place] [phone] Geovanna Aguilar MD Care Coordination ([facility]3 [facility] Micki Acuña telephone call outreach) 09/13/2024 Telephone [facility] [address] [place] [phone] Geovanna Aguilar MD Care Management (C3 initial assessment-unable to lvm) 09/12/2024 Patient Outreach [address] [address] Geovanna Aguilar MD Care Coordination (C3 CM-[facility] Micki Acuña telephone call outreach) 09/04/[address] [phone] Geovanna Aguilar MD Care Management (C3CM initial assessment-reschedu led) 09/03/2024 Patient Outreach [address] [address] Geovanna Aguilar MD Care Coordination (C3 [facility] Micki Acuña telephone call outreach) 08/23/2024 Patient Outreach [address] [address] Geovanna Aguilar MD Care Coordination (C3 [facility] Micki Vaquez telephone call outreach/) 08/16/2024 Patient Outreach [address] [address] Geovanna Aguilar MD Care Coordination (C3 [facility] Micki Domenico telephone call outreach) 08/13/2024 Orders Only GENERIC EXTERNAL DATA DEPARTMENT Provider, Generic External Data 08/09/[address] [address] Shoshana Chairez Care Management (C3 initial assessment-unable to lvm) 08/08/2024 Orders Only [facility] External Provider, [facility] 08/08/2024 Patient Outreach [address] [address] Geovanna Aguilar MD Care Coordination (C3 CM-[facility] Micki Acuña telephone call outreach) 08/02/[address] [address] Annelise Clay, CLINICAL MOLECULAR GENETICIST Follow-up 07/24/2024 Patient Outreach [address] [address] Geovanna Aguilar MD Care Coordination (C3 [facility] Micki Acuña telephone call outreach) 07/24/2024 Patient Outreach [facility] [address] [place] [address] Geovanna Aguilar MD 07/24/2024 Telephone [facility] [address] [place] [address] Albertina Marcos, MIGUEL Care Management (C3CM- chart review) from Last [...] Access Q2 Not on file 07/24/2024 Comments Yes Sex and Gender Information Value Date Recorded [...] Name Priority Date/Time Associated Diagnosis Comments URINALYSIS, COMPLETE Routine 08/13/2024 9:45 PM EST DRUG MONITOR, PANEL 1, SCREEN, URINE Routine 08/13/2024 9:45 PM EST HCG, QL, URINE Routine 08/13/2024 9:45 PM EST SARS COV2/INFLUENZA A/B AND RSV RNA QL NAAT Routine 08/13/2024 9:09 PM EST US OB PELVIS TRANSVAGINAL Routine 08/13/2024 3:50 PM EST ACETAMINOPHEN LEVEL Routine 08/13/2024 2 :07 PM EST SALICYLATE Routine 08/13/2024 2:07 PM EST HCG, TOTAL, [...] AUTO DIFFERENTIAL Routine 07/23/2024 4:15 PM EST CHLAMYDIA/N. GONORRHOEAE RNA, TMA, UROGENITAL Routine 06/24/2024 3:12 PM EST PAP SMEAR Routine 07/30/2022 11:32 AM EST ZZZ HISTORICAL HIV AB/AG Routine 04/02/2021 12:38 PM EDT from Last 3 Months or Most Recently Relevant to Health Maintenance Results * (ABNORMAL) Drug Monitoring, Panel 1, Screen, Urine (08/13/2024 9:45 PM EST) Opiate Screen Urine Not Detected Not Detect [facility] Comment:Opiate cut-off is 30 0 ng/mL.Positive results are unconfirmed and should not be used fornon-medical purposes. Barbiturates, Urine Not Detected Not Detect [facility] Comment:Barbiturate cut-off is 200 ng/mL.Positive results are unconfirmed and should not be used fornon-medical purposes. Phencyclidine Screen Urine Not Detected Not Detect [facility] Comment:Phencyclidine cut-of f is 25 ng/mL.Positive results are unconfirmed and should not be used fornon-medical purposes. Amphetamine Screen Urine Not Detected Not Detect [facility] Comment:Amphetamine cut-off is 1000 ng/mL.Positive results are unconfirmed and should not be used fornon-medical purposes. Benzodiazepines Screen Urine Not Detected Not Detect [facility] Comment:Benzodiazepine cut-o ff is 200 ng/mL.Positive results are unconfirmed and should not be used fornon-medical purposes. Cocaine Screen Urine Not Detected Not Detect [facility] Comment:Cocaine cut-off is 3 00 ng/mL.Positive results are unconfirmed and should not be used fornon-medical purposes. Cannabinoid Screen Urine POSITIVE(A) Not Detect [facility] Comment:Cannabinoid cut-off is 50 ng/mL.Positive results are unconfirmed and should not be used fornon-medical purposes. Methadone Screen, Urine Not Detected Not Detect ng/mL [facility] Comment:Methadone cut-off is 300 ng/mL.Positive results are unconfirmed and should not be used fornon-medical purposes. FENTANYL URINE Not Detected Not Detect [facility] Comment:Fentanyl cut-off is 1 ng/mL.Positive results are unconfirmed and should not be used fornon-medical purposes. Oxycodone Urine Screen Not Detected Not Detect ng/mL [facility] Comment:Oxycodone cut-off is 100 ng/mL.Positive results are unconfirmed and should not be used fornon-medical purposes. Buprenorphine Screen Not Detected Not Detect ng/mL [facility] Comment:Buprenorphine cut-of f is 5 ng/mL.Positive results are unconfirmed and should not be used fornon-medical purposes. 08/13/2024 9:45 PM EST 08/13/2024 9:49 PM EST Generic External Data Provider LAB URINE ORDERAB LES Final Result [facility] [address] [place] [address] [phone] * (ABNORMAL) HCG, Qualitative, Urine (08/13/2024 9:45 PM EST) Only the most recent of2 resultswithin the time period is included. Urine POSITIVE( A) NEGATIVE [facility] Comment:This test was develo ped to detect early . Falsenegative results may occur after the 5th - 7th week ofpregnancy when using this test method. If clinicallyindicated, consider a serum hCG. 08/13/2024 9:45 PM EST 08/13/2024 9:49 PM EST Generic External Data Provider LAB URINE ORDERAB LES Final Result Performing Organization Address [facility] de Phone Number [facility] [address] [place] [phone] * (ABNORMAL) Urinalysis Complete (08/13/2024 9:45 PM EST) Color Urine Yellow [facility] Appearance Urine Cloudy [facility] PH 6.5 5.0 - 9.0 [facility] Glucose Urine UA Negative Negative mg/dL [facility] Urine Blood Negative Negative [facility] Specific [place] - Urine 1.025 1.005 - 1.025 [facility] Urine Protein Trace Neg-Trace mg/dL [facility] Urine Ketones 40 Negative mg/dL [facility] Nitrite Urine Negative Negative [facility] Leukocyte Esterase Urine Trace(A) Negative [facility] RBC Urine 0-2 0 - 2 /HPF [facility] Urine WBC 0-5 0 - 5 /HPF [facility] Urine Squamous Epithelial Cell 11-20 0 - 2 /HPF [facility] Urine Bacteria 1+ None Seen [facility] Hyaline Casts, Urine 0-2 0 - 2 /LPF [facility] 08/13/2024 9:45 PM EST 08/13/2024 9:49 PM EST Generic External Data Provider LAB URINE ORDERAB LES Final Result Performing Organization Address [facility] Co de Phone Number [facility] [address] [place] [phone] * (ABNORMAL) SARS-CoV-2 RNA, Influenza A/B, and RSV RNA, Ql NAAT (08/13/2024 9:09 PM EST) Influenza A PCR POSITIVE(A) Negative [facility] Influenza B PCR NEGATIVE Negative [facility] Resp Syncy Virus RNA Qual PCR NEGATIVE Negative [facility] SARS COV2 PCR NEGATIVE Negative [facility] Comment:All test results mus t [...] use by authorized laboratories.Testing performed on the [employer] GeneXpert utilizingreal-time RT-PCR.All SARS CoV2 and positive influenza A/B results arereported to [facility]. 08/13/2024 9:09 PM EST 08/13/2024 9:12 PM EST us Generic External Data Provider LAB MICROBIOLOGY - GENERAL ORDERABLES Final Result [facility] [address] [place] [phone] * US OB Pelvis with Transvaginal (08/13/2024 3:50 PM EST) Only the most recent of2 resultswithin the time period is included. Anatomical Region Laterality Modality Pelvis Ultrasound 08/13/2024 3:50 PM EST Narrative 08/13/2024 4:47 PM EST ? [facility] ?[address] ?[place] [address] ? Ultrasound Report ? Signed ? Patient: Brito,Guarionis B ?MR#: [id number] ?? [id number] ? : 2000 ?Acct:[id number] ? Age/Sex: 24 / F ?ADM Date: 02/03/25 ? Loc: HO.ED ? Attending Dr: ? Ordering Physician: April Hudson ?? Date of Service: 08/13/24 ?? Procedure(s): US OB pelvic and transvaginal ?? Accession Number(s): [id number] ? cc: April Hudson; [facility] ? EXAMINATION: ? US OBSTETRICAL ULTRASOUND ? CLINICAL INFORMATION: ? Abdominal pain, . ? COMPARISON: ? 08/08/2024, 10/06/2023. ? LMP: Unknown. ? TECHNIQUE: ?? Ultrasound of the maternal pelvis is performed using transabdominal and ?? transvaginal transducers. Transvaginal imaging is performed due to ?? inadequate visualization transabdominally. M-mode Doppler is also ?? performed. ? FINDINGS: ?? There is a single intrauterine gestational sac with visible yolk sac, ?? embryo/fetus, and cardiac activity. ??There is no significant ?? subchorionic hemorrhage or hematoma. ? HR: ??130 beats per minute. ? CRL (crown rump length): ?? 0.34 cm (6 weeks 5 days +/- 4 days). ? MIRANDA (estimated date of delivery): ??04/03/2025 +/- 4 days. ? MATERNAL ADNEXA: ? The right maternal ovary measures 3.3 x 2.3 x 2.4 cm. ??Normal ?? sonographic appearance. Probable corpus luteal cyst measuring 1.4 x 1.4 ?? x 1.7 cm. ? The left maternal ovary measures 3.1 x 1.0 x 2.1 cm. ??Normal ?? sonographic appearance. ? There is no significant maternal adnexal mass. ??No maternal pelvic ?? ascites. ? US/US OB pelvic and transvaginal ?? IMPRESSION: ?? 1. Single intrauterine gestation with ultrasound gestational age of ??6 ?? weeks and 5 days +/- 4 days. ?? 2. Estimated date of delivery is 04/03/2025 +/- 4 days. ?? 3. No gestational complication evident. ?? 4. No maternal adnexal mass or pelvic ascites. ? Electronically signed by: ??Moncho Duque MD ??08/13/2024 04:44 PM EST RP ? Dictated By: ?Moncho Duque MD ? Signed By: ?<Electronically signed by Moncho Duque MD in OV> ?08/13/24 1644 ? DD/ 1550 ? TD/TT: 08/13/24 1603 ? Director Of Health Education: ? Procedure Note Donotuseinterpreter, Image - 08/13/2024 [place] [address] Ultrasound Report Signed Patient: Jeremy Brito BMR#: [id number] : 2000Acct:[id number] Age/Sex: Date: 08/13/24 Loc: HO.ED Attending Dr: Ordering Physician: April Hudson Date of Service: 08/13/24 Procedure(s): US OB pelvic and transvaginal Accession Number(s): [id number] cc: April Hudson; [facility] EXAMINATION: US OBSTETRICAL ULTRASOUND CLINICAL INFORMATION: Abdominal pain, . COMPARISON: 08/08/2024, 10/06/2023. LMP: Unknown. TECHNIQUE: Ultrasound of the maternal pelvis is performed using transabdominal and transvaginal transducers. Transvaginal imaging is performed due to inadequate visualization transabdominally. M-mode Doppler is also performed. FINDINGS: There is a single intrauterine gestational sac with visible yolk sac, embryo/fetus, and cardiac activity. There is no significant subchorionic hemorrhage or hematoma. HR: 130 beats per minute. CRL (crown rump length): 0.34 cm (6 weeks 5 days +/- 4 days). MIRANDA (estimated date of delivery): 04/03/2025 +/- 4 days. MATERNAL ADNEXA: The right maternal ovary measures 3.3 x 2.3 x 2.4 cm. Normal sonographic appearance. Probable corpus luteal cyst measuring 1.4 x 1.4 x 1.7 cm. The left maternal ovary measures 3.1 x 1.0 x 2.1 cm. Normal sonographic appearance. There is no significant maternal adnexal mass. No maternal pelvic ascites. US/US OB pelvic and transvaginal IMPRESSION: 1. Single intrauterine gestation with ultrasound gestational age of 6 weeks and 5 days +/- 4 days. 2. Estimated date of delivery is 04/03/2025 +/- 4 days. 3. No gestational complication evident. 4. No maternal adnexal mass or pelvic ascites. Electronically signed by: Moncho uDque MD 08/13/2024 04:44 PM EST RP Dictated By: Moncho Duque MD Signed By: <Electronically signed by Moncho Duque MD in OV> 08/13/24 1644 DD/ 1550 TD/TT: 08/13/24 1603 Director Of Health Education: [facility] External Provider IMG US PROCEDURES Final Result * Ethanol (08/13/2024 2:07 PM EST) ETHANOL (MG/DL) IN SER/PLAS <10 mg/dL [facility] Comment:Serum/plasma ethanol results are to be used formedical/treatment purposes only. 08/13/2024 2:07 PM EST 08/13/2024 2:11 PM EST Narrative [facility] - 08/13/2024 3:39 PM EST pt refuses Generic External Data Provider LAB BLOOD ORDERAB LES Final Result Performing Organization Address [facility] Co de Phone Number [facility] [address] [place] [phone] * SST GOLD TOP TO HOLD (08/13/2024 2:07 PM EST) Hold Gold See Note [facility] Comment:Specimen held untest ed for 24 hours; Call to requestChemistry testing. 08/13/2024 2:07 PM EST 08/13/2024 2:12 PM EST Generic External Data Provider LAB BLOOD ORDERAB LES Final Result Performing Organization Address [facility] Co de Phone Number [facility] [address] [place] [phone] * (ABNORMAL) CBC auto differential (08/13/2024 2:07 PM EST) Only the most recent of3 resultswithin the time period is included. White Blood Count 4.4(L) 4.8 - 10.8 X10*3/uL [facility] Red Blood Count 4.64 4.20 - 5.50 X10*6/uL [facility] Hemoglobin 13.7 12.0 - 16.0 g/dl [facility] Hematocrit 40.8 37.0 - 47.0 % [facility] Mean Corpuscular Volume 87.9 80.0 - 98.0 fL [facility] Mean Corpuscular Hemoglobin 29.5 27.0 - 33.0 pg [facility] Mean Corpuscular HGB Conc 33.6 31.0 - 35.0 g/dl [facility] Red Cell Distribution Width 12.7 11.0 - 16.0 % [facility] Platelet Count 195 160 - 400 X10*3/uL [facility] Mean Platelet Volume 11.5 9.4 - 12.3 fL [facility] Neutrophils Percent Auto 83.8(H) 45 - 73 % [facility] Imm Gran Pct Auto 0.2 0.0 - 0.4 % [facility] Lymphocytes Percent Auto 6.2(L) 20 - 40 % [facility] Monocytes Percent Auto 8.0 2 - 11 % [facility] Eosinophils Percent Auto 0.9 0 - 4 % [facility] Basophils Percent Auto 0.9 0 - 2 % [facility] NRBC Pct Auto 0.0 0.0 - 0.2 /100WBC [facility] Neutrophils Absolute Auto 3.6 2.0 - 8.3 x10*3/uL [facility] Imm Gran Abs Auto 0.01 0.00 - 0.03 X10*3/uL [facility] Lymphocytes Absolute Auto 0.3(L) 1.2 - 4.9 X10*3/uL [facility] Monocytes Absolute Auto 0.4 0.1 - 1.2 X10*3/uL [facility] Eosinophils Absolute Auto 0.0 0.0 - 0.4 X10*3/uL [facility] Basophils Absolute Auto 0.0 0.0 - 0.2 X10*3/uL [facility] NRBC Abs Auto 0.000 0.0 - 0.012 X10*3/uL [facility] 08/13/2024 2:07 PM EST 08/13/2024 2:11 PM EST Narrative [facility] - 08/13/2024 2:18 PM EST pt refuses us Generic External Data Provider LAB BLOOD ORDERAB LES Final Result Performing Organization Address [facility] Co de Phone Number [facility] [address] [place] [phone] * hCG, Total, Quantitative (08/13/2024 2:07 PM EST) Only the most recent of3 resultswithin the time period is included. HCG Quantitative 68,968 mIU/mL [facility] Comment:Weeks post LMP Appro ximate hCG(Last Menstrual Period) Range (mIU/ml)3 - 4 weeks 9 - 1304 - 5 weeks 75 - 2,6005 - 6 weeks 850 - 20,8006 - 7 weeks 4000 - 100,2007 - 12 weeks 11,500 - 289,83061 - 16 weeks 18,300 - 137,03267 - 29 weeks (2nd trimester) 1,400 - 53,98693 - 41 weeks (3rd trimester) 940 - 60,000The Vazquez B- hCG assay is used for the early detection ofpregnancy; it cannot be used to diagnose any conditionunrelated to . If a B-hCG level is not supportedby the clinical evidence, results should be confirmed by analternative method (qualitative urine hCG, for example). 08/13/2024 2:07 PM EST 08/13/2024 2:11 PM EST Narrative [facility] - 08/13/2024 3:39 PM EST pt refuses us Generic External Data Provider LAB BLOOD ORDERAB LES Final Result [facility] [address] [place] [phone] * Acetaminophen level (08/13/2024 2:07 PM EST) [facility] Acetaminophen LAB <3 <30 mcg/mL [facility] 08/13/2024 2:07 PM EST 08/13/2024 2:11 PM EST [facility] - 08/13/2024 4:06 PM EST pt refuses Generic External Data Provider LAB BLOOD ORDERAB LES Final Result Performing Organization Address [facility] Co de Phone Number [facility] [address] [place] [phone] * (ABNORMAL) Salicylate (08/13/2024 2:07 PM EST) [facility] Salicylate <5.0(L) 15 - 30 mg/dL [facility] 08/13/2024 2:07 PM EST 08/13/2024 2:11 PM EST [facility] - 08/13/2024 4:06 PM EST pt refuses us Generic External Data Provider LAB BLOOD ORDERAB LES Final Result Performing Organization Address [facility] Co de Phone Number [facility] [address] [place] [phone] * (ABNORMAL) Comprehensive Metabolic Panel (08/13/2024 2:07 PM EST) Only the most recent of3 resultswithin the time period is included. Pathologist [facility] Sodium 135 135 - 145 mmol/L [facility] Potassium 3.6 3.3 - 5.1 mmol/L [facility] Chloride 107 96 - 108 mmol/L [facility] Carbon Dioxide 17(L) 22 - 29 mmol/L [facility] Anion Gap 15 12 - 20 [facility] Urea Nitrogen (BUN) 5(L) 9 - 16 mg/dL [facility] Creatinine, Serum 0.61 0.5 - 1.4 mg/dL [facility] Creatinine Clr Calc Pharmacy 170.9 [facility] Comment:Provided height and weight: 167.64 cm,99.79 kg.eGFR (calculated from the MDRD study equation) and eCrCl(calculated from the Cockcroft-Gault equation) are based ondifferent parameters and may not yield comparable results.If eCrCl result is absurd, please check patient'sheight/weight. Estimated Glomerular Filt Rate >60 [facility] Comment:Chronic Kidney Disea se: Estimated GFR < 60 mL/min/1.94g4Rihdzk Kidney Disease: Estimated GFR < 15 mL/min/1.73m2 Glucose 81 60 - 115 mg/dL [facility] Calcium 9.1 8.4 - 10.2 mg/dL [facility] Bilirubin, Total 0.3 0.0 - 1.0 mg/dL [facility] Aspartate Amino Transferase 19 5 - 31 U/L [facility] Alanine Aminotransferase 11 0 - 31 U/L [facility] Total Protein 7.2 6.5 - 8.0 g/dL [facility] Albumin Level 3.6 3.5 - 5.0 g/dL [facility] Alkaline Phosphatase 53 39 - 117 U/L [facility] 08/13/2024 2:07 PM EST 08/13/2024 2:11 PM EST Narrative [facility] - 08/13/2024 3:39 PM EST pt refuses us Generic External Data Provider LAB BLOOD ORDERAB LES Final Result [facility] [address] [place] [phone] * (ABNORMAL) Urinalysis, Complete, with Reflex to Culture (08/08/2024 4:20 PM EST) Only the most recent of2 resultswithin the time period is included. Color Urine Yellow [facility] Appearance Urine Clear [facility] PH 6.5 5.0 - 9.0 [facility] Glucose Urine UA Negative Negative mg/dL [facility] Urine Blood Moderate (2+)(A) Negative [facility] Specific [place] - Urine >=1.030(H) 1.005 - 1.025 [facility] Urine Protein Trace Neg-Trace mg/dL [facility] Urine Ketones Trace Negative mg/dL [facility] Nitrite Urine Negative Negative [facility] Leukocyte Esterase Urine Small (1+)(A) Negative [facility] RBC Urine 0-2 0 - 2 /HPF [facility] Urine WBC 0-5 0 - 5 /HPF [facility] Urine Squamous Epithelial Cell 6-10 0 - 2 /HPF [facility] Urine Bacteria None Seen None Seen [facility] Hyaline Casts, Urine 0-2 0 - 2 /LPF [facility] 08/08/2024 4:20 PM EST 08/08/2024 4:23 PM EST Narrative [facility] - 08/08/2024 5:04 PM EST [id number], Clean [employer] us Generic External Data Provider LAB URINE ORDERAB LES Final Result [facility] [address] [place] [phone] * Prothrombin Time-INR (08/08/2024 4:20 PM EST) Only the most recent of2 resultswithin the time period is included. Prothrombin Time 11.9 10.9 - 12.4 SEC [facility] INTERNATIONAL NORM RATIO 1.0 0.9 - 1.1 [facility] Comment:INTERNATIONAL NORMAL IZED RATIO (INR) [...] ORDERAB LES Final Result Performing Organization Address [facility] Phone Number [facility] [address] [place] [address] [phone] * Type and screen (08/08/2024 4:20 PM EST) Blood Type OP [facility] Antibody Screen NEGATIVE [facility] LABS 08/08/2024 4:20 PM EST 08/08/2024 4:28 PM EST Generic External Data Provider LAB BLOOD BANK TE ST ORDERABLES Final Result Performing Organization Address [facility] Phone Number [facility] [address] [place] [address] [phone] * Culture, Urine, Routine (08/08/2024 4:20 PM EST) Only the most recent of2 resultswithin the time period is included. Urine Urine specimen obtained by clean catch procedure / Unknown 08/08/2024 4:20 PM EST 08/08/2024 5:35 PM EST Comment:UACC Narrative [facility] - 08/10/2024 8:44 AM EST Urine Culture Report Result Urine Culture 10,000 to 50,000 cfu/ml Urine Culture Mixed bacterial kishore characteristic of Urine Culture urogenital contamination. Specimen Source: Urine clean catch Generic External Data Provider LAB MICROBIOLOGY - GENERAL ORDERABLES Final Result Performing Organization Address [facility] de Phone Number [facility] [address] [place] [address] [phone] * Magnesium (08/08/2024 4:20 PM EST) Magnesium 1.9 1.6 - 2.6 mg/dL [facility] 08/08/2024 4:20 PM EST 08/08/2024 4:23 PM EST Generic External Data Provider LAB BLOOD ORDERAB LES Final Result Performing Organization Address [facility] Phone Number [facility] [address] [place] [address] [phone] * Lipase (08/08/2024 4:20 PM EST) [facility] Lipase 15 8 - 78 U/L [facility] 08/08/2024 4:20 PM EST 08/08/2024 4:23 PM EST Generic External Data Provider LAB BLOOD ORDERAB LES Final Result Performing Organization Address [facility] Phone Number [facility] [address] [place] [address] [phone] * ABO Group And RH Type (07/23/2024 4:15 PM EST) [facility] Blood Type OP [facility] 07/23/2024 4:15 PM EST 07/23/2024 4:19 PM EST Generic External Data Provider LAB BLOOD BANK TE ST ORDERABLES Final Result Performing Organization Address [facility] Phone Number [facility] [address] [place] [address] [phone] * Chlamydia/N. Gonorrhoeae RNA, TMA, Urogenitial (06/24/2024 3:12 PM EST) [facility] CT PCR NOT DETECTED Not Detect. [facility] Comment:A not detected test result [...] psychologicalconsequences. NG PCR NOT DETECTED Not Detect. [facility] Comment:A not detected test result [...] PM EST 06/24/2024 4:38 PM EST Narrative [facility] - 06/25/2024 3:01 AM EST Vaginal Generic External Data Provider LAB MICROBIOLOGY - GENERAL ORDERABLES Final Result Performing Organization Address City/State/[facility] Co de Phone Number [facility] [address] [place] [address] [phone] * Pap Smear (07/30/2022 11:32 AM EST) 07/30/2022 11:3 2 AM EST 08/02/2022 11:30 AM EST Narrative [facility] - 08/09/2022 3:05 PM EST ----- ------- Name: Jeremy Brito Ryan ? Age/Sex: ? : 2000 Unit#: [id number] ?? Attend Dr: Marilee Padgett CNM ?Re07/30/22 ?Status: DEP REF ? Location: HO.LNP ?Disch: ? ----- ------- SPEC : [id number] ? RECD: 08/02/22 ? STATUS: ??SOUT ? REQ NUM: [id number] ? RICHARD: 07/30/22 ? SUBM DR: Marilee Padgett CNM ? ENTERED: ??08/03/22 ?SP TYPE: Pap Smr ?OTHR : ? ORDERED: ??Pap Smear ? Interpretation ?? Satisfactory for evaluation. ?? Negative for intraepithelial lesion or malignancy. ?? Coccobacilli consistent with shift in vaginal kishore. ?Clinical Information LMP: 07/05/2022 Previous PAP test: None ? Material Received ?? ThinPrep-Cervical ----- ------- Signed (signature on file) Sondra Vera 08/09/22 1614 ? ----- ------- ? END OF REPORT ? us [facility] External Provider LAB [facility] ORDERABLES Final Result [facility] [address] [place] [phone] * HIV AB/AG (04/02/2021 12:38 PM EDT) [facility] HIV AB/AG Nonreactive Nonreactive [facility] Comment: HIV-1 p24 Ag and/or [...] detection of this assay. ?? The [employer] HIV Ag/Ab Combo assay result and supplemental assay results should be interpreted in conjunction with the patient's clinical presentation, history and other laboratory results. ??If the results are inconsistent with clinical evidence, additional testing is suggested to confirm the result. Hepatitis C Antibody Nonreactive Nonreactive [facility] Comment: Antibodies to HCV not detected; does not exclude early acute HCV infection. 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
[2024-10-20 23:57] LABS: Appearance Urine Clear; Color Urine Dark Yellow; Glucose Urine UA Negative (Negative); Leukocyte Esterase Urine Moderate (2+) (Negative); Nitrite Urine Negative (Negative); Specific Gravity - Urine >= 1.030 (1.005-1.025); UMIC TRIGGER UACC YES; Urine Blood Negative (Negative); Urine Ketones Trace mg/dL (Negative); Urine Protein 30 (1+) mg/dL (Neg-Trace)
[2024-10-21 00:09] LABS: Bacteria Urine Trace (None Seen); Hyaline Casts Urine 0-2 /LPF (0-2); RBC Urine 0-2 /HPF (0-2); UACC Culture Trigger YES
--- NOTE | 2024-10-21 00:09 | PC.NURSE ---
small amount of urine provided for UA only
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
[2024-10-21 01:16] VITALS: BP 102/55; PULSE 74; RESP 18; TEMP 36.8; O2SAT 98
[2024-10-21 01:27] VITALS: BP 102/55; PULSE 74; RESP 18; TEMP 36.8; O2SAT 98
[2024-10-21 11:57] LABS: Bacterial Vaginosis PCR NEGATIVE (Negative); Candida Group PCR DETECTED (Not Detect); Candida glab krusei PCR NOT DETECTED (Not Detect); Trichomonas vaginalis PCR NOT DETECTED (Not Detect)
[2024-10-21 12:27] LABS: CT PCR NOT DETECTED (Not Detect.); NG PCR NOT DETECTED (Not Detect.)
== END 2024-10-21 01:27 | disposition home or self-care (01) ==
PROVIDERS: Physician Assistant; Emergency Provider Internal Medicine
DX: O23.592 Infection of other part of genital tract in pregnancy, second trimester (principal); L29.2 Pruritus vulvae; Z3A.18 18 weeks gestation of pregnancy; Z79.899 Other long term (current) drug therapy
CPT/HCPCS: 81001; 81515; 87086; 87491; 87591; 99283

== ENCOUNTER 2025-05-07 10:26 | Outpatient (REF) | payer MEDICAID, SELFPAY ==
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
--- OUTSIDE RECORDS SUMMARY | 2025-05-07 12:53 | XMS_ITS ---
Author Organization [employer] Address [address] [place] [address] 7 [place] [address] Care Team Providers Care Federal Law Clerk Name Role Phone Shoshana Chairez Unavailable Erma Marcos Unavailable C3 CM Maternal Advocate Status:Outreach In Progress (Enrolling) Start date:04/01/2025 Enrollment reason:ADT Feed Overview HRM- Pt admitted to [facility] on 03/29/25. Case Team Name Relationship Phone Erma Marcos(Responsible Staff) [phone] Continued Care and Services Coordination
--- OUTSIDE RECORDS SUMMARY | 2025-05-07 12:53 | XMS_ITS | Encounter Summary ---
Author Organization [employer] Address [address] [facility] [address] [place] [address] Care Team Providers Care Sap Pp Consultant Name Role Phone Shoshana Chairez Unavailable [phone] Erma Marcos Unavailable Encounter Details Date Type Department Care Team (Latest Contact Info) Description 05/07/2025 Travel Social History Tobacco Use Types Packs/Day Years Used Date Smoking Tobacco: Never Passive Smoke Exposure: Never Smokeless Tobacco: Never Housing Stability Answer Date Recorded What is [...] as of this encounter Plan of Treatment Upcoming Encounters Date Type Department Care Team (Late st Contact Info) Description 07/18/2025 11:45 AM EST Office Visit [facility] [address] [place] [address] Elisha Esparza MD [address] [place], [place] [phone] documented as of this encounter Visit Diagnoses Not on filedocumented in this encounter Care Teams Sap Pp Consultant Relationship Specialty Start Date End Date hSoshana Chairez Registered Nurse 04/01/25 Erma Marcos 04/01/25 documented as of this encounter
--- OUTSIDE RECORDS SUMMARY | 2025-05-07 12:53 | XMS_ITS | Encounter Summary ---
Author Organization [employer] Address [address] [facility] [address] [place] [address] Care Team Providers Care Patient Care Manager Name Role Phone Shoshana Chairez Unavailable [phone] Erma Marcos Unavailable Reason for Visit * Reason Onset Date Comments CHART PREP 05/06/2025 Encounter Details Date Type Department Care Team ([facility] st Contact Info) Description 05/06/2025 Telephone [facility] [address] [place], [place] [phone] Elisha Esparza MD [address] [place], [place] [phone] CHART PREP Social History Tobacco Use Types Packs/Day Years [...] encounter Miscellaneous Notes * Telephone Encounter - Jo Edward [place] - 05/06/2025 1:00 PM EDT Chart Prep Labs: done Images: not applicable Referrals: not applicable Vaccines due: Covid, Flu, and PCV20 Screenings: pap smear, LMP, PISQ, and Lipid panel Overdue care gaps: SBIRT, SDOH, PHQ-9, YOLY-7, Disability screen, and Tobacco documented in this encounter Plan of Treatment Upcoming Encounters Date Type Department Care Team (Late st Contact Info) Description 07/18/2025 11:45 AM EST Office Visit [facility] [address] [place] [address] Elisha Esparza MD [address] [place] [address] documented as of this encounter Visit Diagnoses Not on filedocumented in this encounter Care Teams Patient Care Manager Relationship Specialty Start Date End Date Shoshana Chairez Registered Nurse 04/01/25 Erma Marcos 04/01/25 documented as of this encounter
--- OUTSIDE RECORDS SUMMARY | 2025-05-07 12:53 | XMS_ITS ---
Author Organization [employer] Address [address] [place] [address] 7 [place] [address] Care Team Providers Care Proofing Machine Operator Name Role Phone Shoshana Chairez Unavailable [phone] Erma Marcos Unavailable C3 CM High Risk Maternity Status:Outreach In Progress (Enrolling) Start date:04/01/2025 Enrollment reason:ADT Feed Overview HRM- Pt admitted to [facility] on 03/29/25. Case Team Name Relationship Phone Shoshana Chairez(Responsible Staff) Registered Nurse [phone] Continued Care and Services Coordination
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
== END 2025-05-07 10:27 | disposition home or self-care (01) ==
LOC: HO.HHCL 10:26
PROVIDERS: PCP Internal Medicine; Visit Provider Internal Medicine
DX: Z13.89 Encounter for screening for other disorder (principal)

== ENCOUNTER 2025-05-17 10:23 | Outpatient (REF) | payer MEDICAID, SELFPAY ==
[2025-05-17 11:40] LABS: MANUAL DIFF FLAG NO
[2025-05-17 11:53] LABS: Hematocrit 41.2 % (37.0-47.0); Hemoglobin 13.2 g/dl (12.0-16.0); Imm Gran Abs Auto 0.01 X10*3/uL (0.00-0.03); Imm Gran Pct Auto 0.2 % (0.0-0.4); Lymphocytes Absolute Auto 1.4 X10*3/uL (1.2-4.9); Mean Corpuscular HGB Conc 32.0 g/dl (31.0-35.0); Mean Corpuscular Hemoglobin 29.3 pg (27.0-33.0); Mean Corpuscular Volume 91.4 fL (80.0-98.0); NRBC Abs Auto 0.000 X10*3/uL (0.0-0.012); NRBC Pct Auto 0.0 /100WBC (0.0-0.2); Platelet Count 213 X10*3/uL (160-400); Red Blood Count 4.51 X10*6/uL (4.20-5.50); White Blood Count 5.0 X10*3/uL (4.8-10.8)
[2025-05-17 12:18] LABS: Alanine Aminotransferase 42 U/L (0-31); Albumin Level 4.0 g/dL (3.5-5.0); Alkaline Phosphatase 58 U/L (39-117); Anion Gap 11 (12-20); Aspartate Amino Transferase 26 U/L (5-31); Blood Urea Nitrogen 13 mg/dL (9-16); Calcium 8.9 mg/dL (8.4-10.2); Carbon Dioxide 23 mmol/L (22-29); Chloride 110 mmol/L (96-108); Cholesterol 182 mg/dL (<200); Estimated Glomerular Filt Rate > 60; HDL Cholesterol 48 mg/dL (>40); Potassium 4.1 mmol/L (3.3-5.1); Sodium 140 mmol/L (135-145); Total Protein 6.9 g/dL (6.5-8.0); Triglycerides 93 mg/dL (<150)
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
--- OUTSIDE RECORDS SUMMARY | 2025-05-17 12:18 | XMS_ITS | Encounter Summary ---
Author Organization [employer] Address [address] [facility] 7t [place] [address] Care Team Providers Care Summer Counselor Name Role Phone Shoshana Eli Unavailable Erma Marcos Unavailable Elisha Esparza MD Primary Care Provider + Reason for Visit * Reason Onset Date Comments Health Care Form 05/16/2025 I called the pa tiemartha, regarding a Statement of Good Health, from [facility]. I informed her that the form cannot be completed at this time, because she needs to have Tspot labs. An order was sent on 05/07/25. She stated that she will have them done on 05/17/25. Encounter Details Date Type Department Care Team ([facility] Contact Info) Description 05/16/2025 Telephone [facility] [address] [place] [address] Elisha Esparza MD [address] [place] [address] Health Care Form (I called the patient, regarding a Statement of Good Health, from [facility]. I informed her that the form cannot be completed at this time, because she needs to have Tspot labs. An order was sent on 05/07/25. She stated that she will have them done on 05/17/25.) Social History Tobacco Use Types Packs/Day Years [...] encounter Miscellaneous Notes * Telephone Encounter - Clau Bailey [place] - 05/16/2025 3:15 PM EST I called the patient, regarding a Statement of Good Health, from [facility]. I informed her that the form cannot be completed at this time, because she needs to have Tspot labs. An order was senton 05/07/25. She stated that she will have them done on 05/17/25. documented in this encounter Plan of Treatment Upcoming Encounters Date Type Department Care Team (Late st Contact Info) Description 07/18/2025 11:45 AM EST Office Visit [facility] [address] [place] [phone] Elisha Esparza MD [address] [place] [address] documented as of this encounter Visit Diagnoses Not on filedocumented in this encounter Care Teams Summer Counselor Relationship Specialty Start Date End Date Elisha Esparza MD [address] [place] [phone] PCP - General Internal Medicine 05/07/25 Shoshana Eli Registered Nurse 04/01/25 Erma Marcos 04/01/25 documented as of this encounter
--- OUTSIDE RECORDS SUMMARY | 2025-05-17 12:18 | XMS_ITS ---
Author Organization [employer] Address [address] [place] [address] 7 [place] [address] Care Team Providers Care Game Farm Helper Name Role Phone Shoshana Eli Unavailable Erma Marcos Unavailable Elisha Esparza MD Primary Care Provider + C3 CM High Risk Maternity Status:Outreach In Progress (Enrolling) Start date:04/01/2025 Enrollment reason:ADT Feed Overview HRM- Pt admitted to [facility] on 03/29/25. Case Team Name Relationship Phone Shoshana Eli(Responsible Staff) Registered Nurse [phone] Continued Care and Services Coordination
--- OUTSIDE RECORDS SUMMARY | 2025-05-17 12:18 | XMS_ITS ---
Author Organization [employer] Address [address] [place] [address] 7 [place] [address] Care Team Providers Care Blower Room Attendant Name Role Phone Shoshana Eli Unavailable [phone] Erma Marcos Unavailable Elisha Esparza MD Primary Care Provider + C3 CM Maternal Otis Advocate Status:Outreach In Progress (Enrolling) Start date:04/01/2025 Enrollment reason:ADT Feed Overview HRM- Pt admitted to [facility] on 03/29/25. Case Team Name Relationship Phone Erma Marcos(Responsible Staff) [phone] Continued Care and Services Coordination
--- OUTSIDE RECORDS SUMMARY | 2025-05-17 12:18 | XMS_ITS | Encounter Summary ---
Author Organization [employer] Address [address] [facility] 7t [place] [address] Care Team Providers Care Central Office Technician Name Role Phone Shoshana Eli Unavailable [phone] HemantTarasuejair Unavailable Elisha Esparza MD Primary Care Provider + Reason for Visit * Reason Onset Date Comments New Patient 04/16/2025 Encounter Details Date Type Department Care Team (Late st Contact Info) Description 04/16/2025 Telephone [facility] [address] [place], [place] [phone] Shaq Monroy MD [address] [place], [place] [phone] New Patient Social History Tobacco Use Types [...] 04/16/2025 3:15 PM EDT Patient added to [facility] New Patient wait list as 04-16-2025 * Telephone Encounter - David Al - 04/16/2025 10:57 AM EDT TC from caller requesting NEW PATIENT visit . Insurance name: Standard Location: [facility] Demographic information updated documented in this encounter Plan of Treatment Upcoming Encounters Date Type Department Care Team (Late st Contact Info) Description 07/18/2025 11:45 AM EST Office Visit [facility] [address] [place] [id number] Elisha Esparza MD [address] [place] [phone] documented as of this encounter Visit Diagnoses Not on filedocumented in this encounter Care Teams Central Office Technician Relationship Specialty Start Date End Date Elisha Esparza MD [address] [place] [phone] PCP - General Internal Medicine 05/07/25 Shoshana Eli Registered Nurse 04/01/25 Erma Marcos 04/01/25 documented as of this encounter
[2025-05-17 12:21] LABS: HBS Num1 3.97 mIU/mL (0-7.99); HBc Num1 0.07 S/CO (0.00-0.79); HBsAGNum1 0.40 S/CO (0.00-0.99); HIV Num 1 0.06 S/CO (0.00-0.99); Hepatitis A Antibody IgM 0.26 Index (0-0.79); Hepatitis B Surface Antigen Negative (Negative); ~HepC Num1 0.08 S/CO (0.00-0.79); ~Hepatitis A Antibody IgM Nonreactive (Nonreactive); ~Hepatitis B Surface Antibody NONREACTIVE (Nonreactive); ~Hepatitis C Antibody Nonreactive (Nonreactive)
[2025-05-17 12:27] LABS: Reflex LDLD? No
[2025-05-17 12:30] LABS: Syphilis Screen Nonreactive (Nonreactive)
[2025-05-20 09:19] LABS: TS Negative Control Passed; TS Panel A 0; TS Panel B 0; TS Positive Control Passed; TSpotTB Negative (Negative)
== END 2025-05-17 10:24 | disposition home or self-care (01) ==
LOC: HO.HHCL 10:23
PROVIDERS: PCP Internal Medicine; Visit Provider Internal Medicine
DX: Z00.00 Encounter for general adult medical examination without abnormal findings (principal); Z11.1 Encounter for screening for respiratory tuberculosis; Z11.4 Encounter for screening for human immunodeficiency virus [HIV]; Z11.59 Encounter for screening for other viral diseases; Z11.3 Encounter for screening for infections with a predominantly sexual mode of transmission; A60.09 Herpesviral infection of other urogenital tract; E66.813 Obesity, class 3; E78.5 Hyperlipidemia, unspecified; Z68.41 Body mass index [BMI] 40.0-44.9, adult
CPT/HCPCS: 36415; 80053; 80061; 84443; 85025; 86481; 86695; 86696; 86704; 86706; 86709; 86780; 86803; 87340; 87389

== ENCOUNTER 2025-06-17 20:33 | Emergency (ER) | payer MEDICAID, SELFPAY ==
[2025-06-17 20:47] VITALS: BP 126/56; PULSE 72; RESP 20; TEMP 36.2; O2SAT 100; BMI 39.7
[2025-06-17 22:11] VITALS: BP 102/56; PULSE 70; RESP 16; TEMP 36.7; O2SAT 100
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
[2025-06-17] MEDS: Naloxone HCl Nasal TAKE HOME 4 MG SPRAY 8 MG NOSTRILALT (23:36)
--- NOTE | 2025-06-17 23:38 | PC.NURSE ---
Took over care from MIGUEL Adler, medicated per sep, reviewed discharge instructions with pt. pt verbalized understanding.
[2025-06-17 23:39] VITALS: BP 102/56; PULSE 70; RESP 16; TEMP 36.7; O2SAT 100
--- OUTSIDE RECORDS SUMMARY | 2025-06-18 02:31 | XMS_ITS | Encounter Summary ---
Author Organization [employer] Address [address] [facility] 7t [place] [address] Care Team Providers Care Counseling Case Manager Name Role Phone Shoshana Eli Unavailable [phone] HemantTaratelmamary Unavailable Elisha Esparza MD Primary Care Provider + Reason for Visit * Reason Onset Date Comments New Patient 04/16/2025 Encounter Details Date Type Department Care Team (Late st Contact Info) Description 04/16/2025 Telephone [facility] [address] [place], [place] [phone] Shaq Monroy MD [address] [place], [place] [phone] New Patient Social History Tobacco Use Types [...] 04/16/2025 3:15 PM EDT Patient added to [facility] New Patient wait list as 04-16-2025 * Telephone Encounter - David Al - 04/16/2025 10:57 AM EDT TC from caller requesting NEW PATIENT visit . Insurance name: Standard Location: [facility] Demographic information updated documented in this encounter Plan of Treatment Upcoming Encounters Date Type Department Care Team (Late st Contact Info) Description 07/18/2025 11:45 AM EST Office Visit [facility] [address] [place] [phone] Elisha Esparza MD [address] [place] [phone] documented as of this encounter Visit Diagnoses Not on filedocumented in this encounter Care Teams Counseling Case Manager Relationship Specialty Start Date End Date Elisha Esparza MD [address] [place] [phone] PCP - General Internal Medicine 05/07/25 Shoshana Eli Registered Nurse 04/01/25 Erma Marcos 04/01/25 documented as of this encounter
--- OUTSIDE RECORDS SUMMARY | 2025-06-18 02:31 | XMS_ITS ---
Author Organization [employer] Address [address] [place] [address] [address] [place] [address] Care Team Providers Care Splicing Supervisor Name Role Phone Shoshana Eli Unavailable [phone] Erma Marcos Unavailable Elisha Esparza MD Primary Care Provider + C3 CM Maternal Wallace Advocate Status:Outreach In Progress (Enrolling) Start date:04/01/2025 Enrollment reason:ADT Feed Overview HRM- Pt admitted to [facility] on 03/29/25. Case Team Name Relationship Phone Erma Marcos(Responsible Staff) [phone] Continued Care and Services Coordination
--- OUTSIDE RECORDS SUMMARY | 2025-06-18 02:31 | XMS_ITS ---
Author Organization [employer] Address [address] [place] [address] [address] [place] [address] Care Team Providers Care Burn Out Scarfing Operator Name Role Phone Shoshana Eli Unavailable Erma Marcos Unavailable Elisha Esparza MD Primary Care Provider + C3 CM High Risk Maternity Status:Outreach In Progress (Enrolling) Start date:04/01/2025 Enrollment reason:ADT Feed Overview HRM- [place] [facility] [place]. Case Team Name Relationship Phone Shoshana Eli(Responsible Staff) Registered Nurse [phone] Continued Care and Services Coordination
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
== END 2025-06-17 23:40 | disposition home or self-care (01) ==
PROVIDERS: Emergency Provider Emergency Medicine; PCP Internal Medicine
DX: K08.89 Other specified disorders of teeth and supporting structures (principal); T40.2X5A Adverse effect of other opioids, initial encounter; Y92.9 Unspecified place or not applicable; R42 Dizziness and giddiness; R11.0 Nausea; F43.10 Post-traumatic stress disorder, unspecified; E66.01 Morbid (severe) obesity due to excess calories; F12.90 Cannabis use, unspecified, uncomplicated; Z68.39 Body mass index [BMI] 39.0-39.9, adult
CPT/HCPCS: 99283; 99284